=== PATIENT | male | born 1950 | race Caucasian/White ===

== ENCOUNTER → 2017-11-30 07:13 | Outpatient (CLI) | payer MEDICARE, OTHER, SELFPAY ==
[2017-11-30 08:43] LABS: Add Manual Diff / Slide Review NO; Basophils Percent Auto 0.6 % (0-2); Hematocrit 40.9 % (41-53); Hemoglobin 14.7 g/dL (13.5-17.5); Lymphocytes Percent Auto 34.8 % (25-40); Mean Corpuscular HGB Conc 35.9 % (30-36); Mean Corpuscular Hemoglobin 31.9 PG (26-34); Mean Corpuscular Volume 88.8 fL (80-100); Monocytes Percent Auto 7.6 % (3-14); Neutrophils Absolute Auto 3500 /uL (3000-5900); Platelet Count 172 X10^3/uL (150-400); Red Blood Cell Count 4.61 X10^6/uL (4.5-5.9); Red Cell Distribution Width 14.5 % (11.6-14.8); White Blood Cell Count 6.6 X10^3/uL (4.5-11.0)
[2017-11-30 08:45] LABS: Prothrombin Time 10.7 SECONDS (10.1-12.7)
[2017-11-30 08:52] LABS: Alanine Aminotransferase 25 IU/L (21-72); Albumin 4.1 g/dL (3.5-5.0); Albumin Globulin Ratio 1.2 (1.0-2.8); Alkaline Phosphatase 67 U/L (38-126); Aspartate Aminotransferase 34 IU/L (17-59); Bilirubin Total 1.1 mg/dL (0.2-1.3); Bilirubin Unconjugated 0.7 mg/dL (0.0-1.1); Blood Urea Nitrogen 18 mg/dL (9-20); Calcium 9.8 mg/dL (8.4-10.2); Carbon Dioxide 22 mmol/L (22-32); Chloride 107 mmol/L (98-107); Estimated Glomerular Filt Rate > 60.0 mL/min (>60); Globulin 3.3 g/dL (1.7-4.1); Glucose 165 mg/dL (80-110); HEMOLYSIS 46 (0-50); Magnesium 1.5 mg/dL (1.6-2.3); Phosphorous 3.2 mg/dL (2.3-3.7); Potassium 4.6 mmol/L (3.4-5.1); Sodium 140 mmol/L (137-145); Total Protein 7.4 g/dL (6.3-8.2)
[2017-11-30 13:36] LABS: Gamma Glutamyl Transpeptidase 34 U/L (15-73)
[2017-12-02 17:40] LABS: Tacrolimus 3.8 mcg/L (5.0-20.0)
== END ==
PROVIDERS: PCP Family Medicine; Visit Provider Internal Medicine Gastroenterology
DX: Z94.4 Liver transplant status (principal); Z48.298 Encounter for aftercare following other organ transplant; Z79.899 Other long term (current) drug therapy
CPT/HCPCS: 36415; 80048; 80076; 80197; 82977; 83735; 84100; 85025; 85610

== ENCOUNTER → 2018-06-16 07:32 | Outpatient (CLI) | payer MEDICARE, OTHER, SELFPAY ==
[2018-06-16 08:45] LABS: Add Manual Diff / Slide Review NO; Basophils Absolute Auto 100 /uL (0-100); Eosinophils Absolute Auto 300 /uL (0-450); Eosinophils Percent Auto 5.5 % (2-4); Hematocrit 40.2 % (41-53); Hemoglobin 14.2 g/dL (13.5-17.5); Lymphocytes Absolute Auto 2200 /uL (1100-4500); Lymphocytes Percent Auto 37.4 % (25-40); Mean Corpuscular HGB Conc 35.4 % (30-36); Mean Corpuscular Hemoglobin 31.7 PG (26-34); Mean Corpuscular Volume 89.5 fL (80-100); Monocytes Absolute Auto 400 /uL (0-900); Neutrophils Absolute Auto 2900 /uL (1500-7000); Neutrophils Percent Auto 49.1 % (50-75); Platelet Count 160 X10^3/uL (150-400); Red Cell Distribution Width 14.9 % (11.6-14.8)
[2018-06-16 08:54] LABS: INR 1.1 (0.9-1.3)
[2018-06-16 09:07] LABS: Alanine Aminotransferase 26 IU/L (21-72); Albumin 3.9 g/dL (3.5-5.0); Albumin Globulin Ratio 1.1 (1.0-2.8); Alkaline Phosphatase 59 U/L (38-126); Aspartate Aminotransferase 26 IU/L (17-59); BUN Creatinine Ratio 17.3 (6-22); Bilirubin Total 0.8 mg/dL (0.2-1.3); Bilirubin Unconjugated 0.6 mg/dL (0.0-1.1); Blood Urea Nitrogen 19 mg/dL (9-20); Calcium 10.1 mg/dL (8.4-10.2); Carbon Dioxide 24 mmol/L (22-32); Chloride 105 mmol/L (98-107); Estimated Glomerular Filt Rate > 60.0 mL/min (>60); Gamma Glutamyl Transpeptidase 28 U/L (15-73); Globulin 3.4 g/dL (1.7-4.1); Glucose 173 mg/dL (80-110); HEMOLYSIS < 15 (0-50); Magnesium 1.3 mg/dL (1.6-2.3); Phosphorous 3.2 mg/dL (2.3-3.7); Potassium 4.4 mmol/L (3.4-5.1); Sodium 140 mmol/L (137-145); Total Protein 7.3 g/dL (6.3-8.2)
[2018-06-19 09:04] LABS: Tacrolimus 4.2 mcg/L (5.0-20.0)
== END ==
PROVIDERS: PCP Family Medicine; Visit Provider Internal Medicine Gastroenterology
DX: Z94.4 Liver transplant status (principal); Z48.298 Encounter for aftercare following other organ transplant; Z79.899 Other long term (current) drug therapy
CPT/HCPCS: 36415; 80048; 80076; 80197; 82977; 83735; 84100; 85025; 85610

== ENCOUNTER → 2018-09-02 07:56 | Outpatient (CLI) | payer MEDICARE, OTHER, SELFPAY ==
[2018-09-02 08:54] LABS: Add Manual Diff / Slide Review NO; Basophils Absolute Auto 0 /uL (0-100); Basophils Percent Auto 0.7 % (0-2); Eosinophils Absolute Auto 200 /uL (0-450); Eosinophils Percent Auto 3.7 % (2-4); Hematocrit 40.9 % (41-53); Hemoglobin 14.5 g/dL (13.5-17.5); Lymphocytes Absolute Auto 2400 /uL (1100-4500); Lymphocytes Percent Auto 39.5 % (25-40); Mean Corpuscular HGB Conc 35.5 % (30-36); Mean Corpuscular Hemoglobin 31.1 PG (26-34); Mean Corpuscular Volume 87.6 fL (80-100); Monocytes Absolute Auto 500 /uL (0-900); Monocytes Percent Auto 7.5 % (3-14); Neutrophils Absolute Auto 3000 /uL (1500-7000); Neutrophils Percent Auto 48.6 % (50-75); Platelet Count 144 X10^3/uL (150-400); Red Blood Cell Count 4.67 X10^6/uL (4.5-5.9); Red Cell Distribution Width 14.4 % (11.6-14.8); White Blood Cell Count 6.1 X10^3/uL (4.5-11.0)
[2018-09-02 09:13] LABS: INR 1.1 (0.9-1.3); Prothrombin Time 12.3 SECONDS (10.1-12.7)
[2018-09-02 09:18] LABS: Alanine Aminotransferase 19 IU/L (21-72); Albumin 3.9 g/dL (3.5-5.0); Albumin Globulin Ratio 1.2 (1.0-2.8); Alkaline Phosphatase 55 U/L (38-126); Aspartate Aminotransferase 20 IU/L (17-59); Bilirubin Total 1.4 mg/dL (0.2-1.3); Bilirubin Unconjugated 1.1 mg/dL (0.0-1.1); Blood Urea Nitrogen 22 mg/dL (9-20); Calcium 9.7 mg/dL (8.4-10.2); Carbon Dioxide 24 mmol/L (22-32); Chloride 106 mmol/L (98-107); Estimated Glomerular Filt Rate > 60.0 mL/min (>60); Gamma Glutamyl Transpeptidase 26 U/L (15-73); Globulin 3.2 g/dL (1.7-4.1); Glucose 215 mg/dL (80-110); HEMOLYSIS < 15 (0-50); Magnesium 1.3 mg/dL (1.6-2.3); Phosphorous 2.8 mg/dL (2.3-3.7); Potassium 4.4 mmol/L (3.4-5.1); Sodium 138 mmol/L (137-145); Total Protein 7.1 g/dL (6.3-8.2)
[2018-09-05 06:44] LABS: Tacrolimus 5.3 mcg/L (5.0-20.0)
== END ==
PROVIDERS: Family Provider Internal Medicine Gastroenterology; PCP Family Medicine; Visit Provider Internal Medicine Gastroenterology
DX: Z94.4 Liver transplant status (principal); Z79.899 Other long term (current) drug therapy; Z48.298 Encounter for aftercare following other organ transplant; R10.9 Unspecified abdominal pain
CPT/HCPCS: 36415; 80048; 80076; 80197; 82977; 83735; 84100; 85025; 85610

== ENCOUNTER → 2018-09-11 10:20 | Outpatient (CLI) | payer MEDICARE, OTHER, SELFPAY ==
--- NOTE | 2018-09-11 | DI.CT.S_ITS ---
PROCEDURE: CT CHEST ABD PEL W CON INDICATIONS: DYSPHAGIA/LEFT UPPER QUADRANT PAIN/LIVER TRANSPLAN TECHNIQUE: After the administration of oral and intravenous contrast, 5 mm thick sections acquired from the lung apices to the symphysis. 5 mm coronal and sagittal reformats were performed, with additional 7 mm coronal MIP reformats through the lungs. For radiation dose reduction, the following was used: automated exposure control, adjustment of mA and/or kV according to patient size. COMPARISON: [facility], CT, PE STUDY (CTA CHEST), 06/25/2017, 14:43. FINDINGS: Image quality: Excellent. CHEST: Lungs and pleura: No acute airspace opacities. No pleural effusions or pneumothorax. Central and peripheral airways appear patent and normal in caliber. Mediastinum: Heart size is normal. No pericardial effusion. No mediastinal or hilar adenopathy by size criteria. Thoracic aorta and central pulmonary arteries are normal in size. Esophagus is normal in caliber. No hiatal hernia. Chest wall: No axillary or supraclavicular adenopathy by size criteria. Thyroid gland appears normal where well seen. ABDOMEN: Solid organs: Liver is again seen to be cirrhotic in its appearance, with mild nodular margination previously documented by chest CT scan in 06/25/17 in this patient with reported prior liver transplant. Splenomegaly is again noted, 15.4 cm craniocaudad length, virtually equivalent to the prior enlargement noted. Gallbladder is not seen. Biliary system is non dilated. Pancreas enhances normally, but note is made of a cyst at the anterior border of the splenic tail, measuring up to 1.8 x 2.1 cm with a small posterior punctate calcification at its border. No adjacent amara pancreatic inflammation is seen. Spleen is normal in size and enhancement. No adrenal nodules. Kidneys demonstrate normal size and enhancement, without hydronephrosis. Peritoneum and bowel: Bowel loops demonstrate normal wall thickness and caliber. No free fluid or air. Nodes and vessels: No retroperitoneal or mesenteric adenopathy by size criteria. Aorta and inferior vena cava are normal in size. Extensive varicosities are noted within the abdomen, best seen to the left of midline and tracking cephalad from the abdomen/pelvis junction into the gastrohepatic ligament and perisplenic hilar region, with what appears to be varices tracking cephalad along the esophagus into the posterior mediastinum. Note is made at the insertion of the inferior mesenteric vein into the undersurface of the splenic vein there is a lower density in coming venous flow and what appears to be laminar flow of this relatively unopacified blood tracks leftward towards the splenic hilum as a band of lower density content within the splenic vein (indicating reversed flow). Miscellaneous: No ventral hernias. PELVIS: Genitourinary: Bladder wall thickness is normal. Miscellaneous: No inguinal hernias or adenopathy. A normal appendix is seen extending from the cecal region cephalad and posteriorly. Bones: No suspicious bony lesions. No vertebral body compression fractures. IMPRESSION: 1. Report of prior hepatic transplant with expected postsurgical changes. Hepatic cirrhosis is present. There is evidence of significant portal hypertension as indicated by extensive varicosities involving the abdomen best seen to the left of midline and extending cephalad in the paraesophageal area. Reverse flow of blood within the splenic vein appears present. 2. An ovoid water density cystic structure is seen at the anterior border of the splenic tail, measuring up to 1.8 x 2.1 cm, with a small punctate calcification at its posterior border. 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 Therefore it is recommended that this patient received a targeted single organ ultrasound to determine whether that structure can be accurately detected and measured by ultrasound and therefore followed over time for interval enlargement. Ultrasound assessment in 6 and 12 months is recommended at this time, and followup thereafter likely will be necessary. 3. A source of unexplained abdominal pain is not found. Specifically no underlying definite infection or neoplasm is seen. Dictated by: Og Bang M.D. on 09/11/2018 at 12:15 Approved by: Og Bang M.D. on 09/11/2018 at 12:34
== END ==
PROVIDERS: Family Provider Internal Medicine Gastroenterology; PCP Family Medicine; Visit Provider Internal Medicine Gastroenterology
DX: R13.10 Dysphagia, unspecified (principal); R10.12 Left upper quadrant pain; R16.1 Splenomegaly, not elsewhere classified; K74.60 Unspecified cirrhosis of liver; K86.2 Cyst of pancreas; K76.6 Portal hypertension; Z94.4 Liver transplant status
CPT/HCPCS: 71260; 74177; Q9967

== ENCOUNTER → 2019-01-10 08:09 | Outpatient (CLI) | payer MEDICARE, OTHER, SELFPAY ==
[2019-01-10 08:43] LABS: Add Manual Diff / Slide Review NO; Basophils Absolute Auto 0 /uL (0-100); Basophils Percent Auto 0.8 % (0-2); Eosinophils Absolute Auto 200 /uL (0-450); Eosinophils Percent Auto 3.7 % (2-4); Hematocrit 42.3 % (41-53); Hemoglobin 15.1 g/dL (13.5-17.5); Lymphocytes Absolute Auto 2300 /uL (1100-4500); Lymphocytes Percent Auto 41.4 % (25-40); Mean Corpuscular HGB Conc 35.7 % (30-36); Mean Corpuscular Hemoglobin 31.7 PG (26-34); Mean Corpuscular Volume 88.8 fL (80-100); Monocytes Absolute Auto 300 /uL (0-900); Monocytes Percent Auto 6.1 % (3-14); Neutrophils Absolute Auto 2600 /uL (1500-7000); Platelet Count 149 X10^3/uL (150-400); Red Blood Cell Count 4.76 X10^6/uL (4.5-5.9); Red Cell Distribution Width 14.6 % (11.6-14.8); White Blood Cell Count 5.5 X10^3/uL (4.5-11.0)
== END ==
PROVIDERS: PCP Family Medicine; Visit Provider Internal Medicine Gastroenterology
DX: R10.9 Unspecified abdominal pain (principal)
CPT/HCPCS: 36415; 85025

== ENCOUNTER 2020-07-03 13:44 | Emergency (ER) | payer MEDICARE, OTHER, SELFPAY ==
[2020-07-03] VITALS (13 sets, daily range): BP systolic 126–145; BP diastolic 66–91; PULSE 78–82; RESP 2–24; TEMP 37.1; O2SAT 95–98; BMI 31.3
--- NOTE | 2020-07-03 14:00 | DI.RAD.S_ITS ---
PROCEDURE: XR ACUTE ABDOMEN SERIES INDICATIONS: severe, Abdominal pain TECHNIQUE: One view chest and two views of the abdomen were acquired. COMPARISON: None. FINDINGS: Surgical changes and devices: None. Chest: Lungs are mildly abnormal with a mild interstitial prominence of uncertain etiology and chronicity. This has a patchy distribution that could conceivably represent mild atypical/viral pneumonia.. Heart size is normal. No pleural effusions. No pneumoperitoneum. Abdomen: Bowel gas pattern is normal. No suspicious calcifications. Visualized solid organ contours appear normal. Bones: No suspicious bony lesions. IMPRESSION: No sign of intestinal obstruction or perforation across the abdomen and pelvis. At the lung bases there is a mild patchy alveolar infiltration pattern that could conceivably represent evidence of a early manifestation of viral/atypical pneumonia. Please correlate clinically. Dictated by: Og Bang M.D. on 07/03/2020 at 14:40 Approved by: Og Bang M.D. on 07/03/2020 at 14:41
--- NOTE | 2020-07-03 14:49 | ED.ABDPAIN ---
HPI - Abdominal Pain General Chief Complaint: Abdominal Pain Stated Complaint: APPENDIX IS LEAKING OR BROKEN Time Seen by Provider: 07/03/20 13:48 Source: patient Mode of arrival: Ambulatory Limitations: no limitations History of Present Illness HPI narrative: 70-year-old male nonsmoker without significant medical history presents with a chief complaint of a few weeks of gradually worsening right lower quadrant. He states the pain is constant and gradually worsening. He states the pain is worse with motion and improves with rest. He denies any dysuria, frequency or urgency. He does admit to some decreased bowel movements perhaps constipation. He has had no fever or chills. He denies any chest pain, shortness of breath or cough. MD complaint: abdominal pain Onset (ago): week(s) Pain Consistency: constant Location: RLQ Severity: moderate Quality: cramping and aching Radiation: none Relieving factors: rest Exacerbating factors: movement Associated symptoms: denies other symptoms Related Data Previous Rx's Medication Instructions Recorded levofloxacin [Levaquin] 750 mg PO QDAY #5 tab 06/25/17 acetaminophen-codeine 1 tab PO Q4-6H PRN #20 tab 07/03/20 levofloxacin 500 mg PO DAILY 7 Days tab 07/03/20 Allergies Allergy/AdvReac Type Severity Reaction Status Date / Time hydrocodone [HYDROCODONE] Allergy Severe SEVERE Verified 07/03/20 14:53 ITCHING tetracycline [TETRACYCLINE] Allergy Unknown Verified 07/03/20 14:53 bee venom protein (honey bee) Allergy Verified 07/03/20 14:53 oxycodone [OXYCODONE] AdvReac Severe SEVERE Verified 07/03/20 14:53 ITCHING Review of Systems Constitutional Constitutional: Denies chills, Denies fatigue, Denies fever(s), Denies frequent falls, Denies lethargy and Denies weakness Eyes Eyes: Denies change in vision, Denies eye discharge, Denies irritation and Denies loss of vision ENT Ears, Nose, Mouth, and Throat: Denies change in voice, Denies dizziness, Denies neck pain, Denies sore throat and Denies throat swelling Cardiovascular Cardiovascular: Denies chest pain, Denies irregular heart rhythm, Denies lightheadedness, Denies palpitations, Denies dyspnea, Denies dyspnea on exertion and Denies orthopnea Respiratory Respiratory: Denies cough, Denies dyspnea, Denies dyspnea on exertion and Denies wheezing Gastrointestinal Gastrointestinal: Reports abdominal pain, Denies change in bowel habits, Denies diarrhea, Denies nausea and Denies vomiting Musculoskeletal Musculoskeletal: Denies neck pain and Denies numbness Integumentary/Breasts Skin/Breast: Denies pruritus, Denies erythema, Denies rash and Denies wounds Neurologic Neurologic: Denies behavioral changes, Denies confusion, Denies dizziness, Denies frequent falls, Denies loss of vision, Denies numbness and Denies weakness Psychiatric Psychiatric: Denies anxiety, Denies behavioral changes, Denies confusion, Denies depression, Denies homicidal ideation and Denies suicidal ideation Endocrine Endocrine: Denies fatigue, Denies flushing and Denies palpitations Hematologic/Lymphatic Hematologic/Lymphatic: Denies easy bruising Allergic/Immunologic Allergic/Immunologic: Denies urticaria, Denies throat swelling and Denies wheezing Patient History Social History Smoking Status: Never smoker Smoking Status: Never smoker Substance Use Type: does not use Exam Narrative Exam Narrative: GENERAL: [70] year old patient appears stated age. Well-nourished, well-developed patient, in mild distress. Obviously uncomfortable, rubbing his right lower abdomen HEAD: Atraumatic. Normocephalic. EYES: Pupils equal round and reactive. Extraocular motions intact. No scleral icterus. No injection or drainage. ENT: Nose without bleeding, purulent drainage. Throat without erythema, tonsillar hypertrophy or exudate. Airway patent. NECK: Trachea midline. Non tender CARDIOVASCULAR: Regular rate and rhythm without murmurs, gallops, or rubs. RESPIRATORY: Clear to auscultation. Breath sounds equal bilaterally. No wheezes, rales, or rhonchi. GASTROINTESTINAL: Abdomen soft, tender right lower quadrant, nondistended. : Examined with patient standing, mild tenderness to R testicle, no swelling, discoloration. Much more pain with palpation in R inguinal region. No redness, warmth induration. No palpable hernia. EXTREMITIES: No edema or joint tenderness. BACK: Nontender without deformity or crepitance. No flank tenderness. NEURO: AOx3. SKIN: No rash or erythema of visible areas Initial Vital Signs Initial Vital Signs: Vital Signs Temperature 98.7 F 07/03/20 13:55 Pulse Rate 82 07/03/20 13:55 Respiratory Rate 18 07/03/20 13:55 Blood Pressure 140/88 07/03/20 13:55 Pulse Oximetry 97 07/03/20 13:55 Course Orders Ordered: Discontinued Medications Sodium Chloride (Normal Saline 0.9%) 1,000 mls @ 125 mls/hr IV CONT SAV Last Infusion: 07/03/20 18:54 Dose: 0 mls/hr Documented by: Admin: 07/03/20 15:14 Dose: 125 mls/hr Documented by: CARLOS Ondansetron HCl (Ondansetron 4 Mg/2 Ml Inj) 4 mg IV Q4HR PRN PRN Reason: Nausea And Vomiting Vital Signs Vital signs: Vital Signs - 8 hr 07/03/20 13:55 07/03/20 14:47 07/03/20 14:48 Temperature 98.7 F Pulse Rate 82 79 79 Respiratory Rate 18 20 14 Blood Pressure 140/88 132/83 Pulse Oximetry 97 97 97 07/03/20 15:00 07/03/20 15:30 07/03/20 15:51 Temperature Pulse Rate 78 79 80 Respiratory Rate 15 18 12 Blood Pressure 135/77 135/81 134/80 Pulse Oximetry 95 95 98 07/03/20 16:00 07/03/20 16:30 Temperature Pulse Rate 79 80 Respiratory Rate 2 L 17 Blood Pressure 142/86 H 127/82 Pulse Oximetry 97 97 MDM - Abdominal Pain Lab Data Result diagrams: 07/03/20 14:42 07/03/20 14:42 Labs: Lab Results 07/03/20 07/03/20 07/03/20 Range/Units 14:42 14:42 14:42 WBC 7.9 (4.5-11.0) X10^3/uL RBC 4.05 L (4.5-5.9) X10^6/uL Hgb 12.0 L (13.5-17.5) g/dL Hct 35.5 L (41-53) % MCV 87.7 (80-100) fL MCH 29.5 (26-34) PG MCHC 33.7 (30-36) % RDW 13.9 (11.6-14.8) % Plt Count 307 (150-400) X10^3/uL Neut % (Auto) 53.5 (50-75) % Lymph % (Auto) 33.1 (25-40) % [place] % (Auto) 9.3 (3-14) % Eos % (Auto) 3.0 (2-4) % Baso % (Auto) 1.1 (0-2) % Neut # (Auto) 4200 (9201-0121) /uL Lymph # (Auto) 2600 (4297-0096) /uL [place] # (Auto) 700 (0-900) /uL Eos # (Auto) 200 (0-450) /uL Baso # (Auto) 100 (0-100) /uL Sodium 136 L (137-145) mmol/L Potassium 4.2 (3.4-5.1) mmol/L Chloride 101 (98-107) mmol/L Carbon Dioxide 24 (22-32) mmol/L BUN 20 (9-20) mg/dL Creatinine 1.07 (0.66-1.25) mg/dL Estimated GFR > 60.0 (>60) mL/min BUN/Creatinine Ratio 18.7 (6-22) Glucose 228 H (80-110) mg/dL Lactate 1.8 (0.7-2.1) mmol/L Calcium 11.3 H (8.4-10.2) mg/dL Total Bilirubin 0.6 (0.2-1.3) mg/dL AST 30 (17-59) IU/L ALT 21 (<50) IU/L Alkaline Phosphatase 95 (38-126) U/L Total Protein 7.8 (6.3-8.2) g/dL Albumin 4.1 (3.5-5.0) g/dL Globulin 3.7 (1.7-4.1) g/dL Albumin/Globulin Ratio 1.1 (1.0-2.8) Point of care testing: Urine Dip Bedside Urine Glucose Negative Bedside Urine Bilirubin - Negative Bedside Urine Ketone - Negative Urine Specific [place] 1.010 Bedside Urine Occult Blood - Negative Bedside Urine pH 6.0 Bedside Urine Protein - Negative Bedside Urine Urobilinogen - Negative Bedside Urine Nitrite - Negative Bedside Urine Leukocytes - Negative Esterase Imaging Data CT scan - abdomen/pelvis: Radiologist's Impression: [address] [id number] Scan ReportSigned Patient: Gage Wyatt [facility]#: [id number]: 2Acct:[id number]/Sex: 70 / MDate of Service: 07/03/20Loc: EDAccession Number: [id number] Procedure: CT abdomen pelvis w con Ordering Provider: Mason Lawton D.O. PROCEDURE: CT ABDOMEN PELVIS W CON INDICATIONS: severe RLQ pain, worsening TECHNIQUE: After the administration of intravenous contrast, 5 mm thick sections acquired from the diaphragm to the symphysis. 5 mm coronal and sagittal reformats were acquired. For radiation dose reduction, the following was used: automated exposure control, adjustment of mA and/or kV according to patient size. COMPARISON: [facility], CT, CT CHEST ABD PEL W CON, 09/11/2018, 11:22. FINDINGS: Image quality: Excellent. ABDOMEN: Lung bases: Lung bases are clear. Heart size is normal. Solid organs: Liver is normal in size and yet abnormal in presence of mural nodularity along the capsular border and also there has been interval development of scattered low-density presume solid masses, by appearance, measuring up to 1.8 cm in maximal dimension. These are present in areas previously normal on earlier CT scanning from 09/11/18. Gallbladder is not seen and presumably is surgically absent.. Biliary system is non dilated. Pancreas enhances normally. Spleen is enlarged in size at 14.9 cm craniocaudad, and normal in enhancement. Extensive varices are present at the left upper quadrant near the splenic hilum. No adrenal nodules. Kidneys demonstrate normal size and enhancement, without hydronephrosis. Peritoneum and bowel: Bowel loops demonstrate normal wall thickness and caliber. No free fluid or air. Nodes and vessels: No retroperitoneal or mesenteric adenopathy by size criteria. Aorta and inferior vena cava are normal in size. Miscellaneous: No ventral hernias. PELVIS: Genitourinary: Bladder wall thickness is normal. Miscellaneous: No inguinal hernias or adenopathy. Bones: No suspicious bony lesions. No vertebral body compression fractures. IMPRESSION: The hepatic capsular margin is nodular consistent with cirrhosis and there is evidence of portal hypertension given a large cluster of enlarged varices at the left upper quadrant near the splenic hilum. There is an unexpected finding of multiple small solid-appearing nodules within the liver parenchyma, in a pattern suggestive of hepatic metastatic disease. Elective follow-up by multi phase hepatic MR scanning is recommended, and also assessment by elective follow-up gallbladder ultrasound should be obtained for further characterization. Within the abdomen and pelvis no discrete focus of primary neoplasm as source of new hypodense nodules within the liver parenchyma is found. Dictated by: Og Bang M.D. on 07/03/2020 at 15:57 Approved by: Og Bang M.D. on 07/03/2020 at 16:04 [facility] Narrative Medical decision making narrative: Multiple etiologies for patient's symptoms considered including: [Appendicitis versus bowel obstruction versus kidney stone versus constipation versus epidydmitis vs. hernia vs. other] Patient's symptoms improved over duration of stay with above-stated therapies. He has trouble with hydrocodone/oxycodone and has done well with morphine patches years ago, but very much does not want something as strong as morphine. He requests codeine, which seems reasonable given this history. Findings and discharge diagnosis discussed with patient/family followed by verbalization of understanding Return precautions discussed with patient/family whom verbalize understanding. Discharge Plan Departure Patient Disposition: Home Clinical Impression: Acute epididymitis Instructions: DI for Epididymitis Activity Restrictions/Additional Instructions: *You have been diagnosed with [abdominal pain and testicle pain. CT shows no bowel obstruction or appendicitis. Ultrasound shows epididymitis. *Take medications as directed. *Follow up with your primary care provider in 2-3 days, call for an appointment. Let them know you were seen in the Emergency Department and that we ask that you be seen in follow up. The CT did show some concerning elements to the structure of your liver and radiology recommends further evaluation as an outpatient, your primary care provider can help get you set up for the MRI that is recommended. There is question of possible early hernia based on ultrasound. There is no evidence that it is incarcerated or stuck, but please be sure to not strain, or lift heavy objects. *Return to ER if you should have any new, worsening or concerning symptoms, such as [worsening pain, persistent vomiting, fever greater than 101 F or other concerning symptoms] Prescriptions: New acetaminophen-codeine 300-30 mg tablet 1 tab PO Q4-6H PRN (Reason: pain) Qty: 20 RF: 0 levofloxacin 500 mg tablet 500 mg PO DAILY 7 Days RF: 0 No Action levofloxacin [Levaquin] 750 MG tablet 750 mg PO QDAY Qty: 5 RF: 0 Referrals: Vishal Fields MD [Primary Care Provider] -
[2020-07-03 14:54] LABS: Add Manual Diff / Slide Review NO; Basophils Absolute Auto 100 /uL (0-100); Basophils Percent Auto 1.1 % (0-2); Eosinophils Absolute Auto 200 /uL (0-450); Hematocrit 35.5 % (41-53); Lymphocytes Absolute Auto 2600 /uL (1100-4500); Lymphocytes Percent Auto 33.1 % (25-40); Mean Corpuscular HGB Conc 33.7 % (30-36); Mean Corpuscular Hemoglobin 29.5 PG (26-34); Mean Corpuscular Volume 87.7 fL (80-100); Monocytes Absolute Auto 700 /uL (0-900); Monocytes Percent Auto 9.3 % (3-14); Neutrophils Absolute Auto 4200 /uL (1500-7000); Neutrophils Percent Auto 53.5 % (50-75); Platelet Count 307 X10^3/uL (150-400); Red Blood Cell Count 4.05 X10^6/uL (4.5-5.9); Red Cell Distribution Width 13.9 % (11.6-14.8); White Blood Cell Count 7.9 X10^3/uL (4.5-11.0)
--- NOTE | 2020-07-03 14:55 | DI.CT.S_ITS ---
PROCEDURE: CT ABDOMEN PELVIS W CON INDICATIONS: severe RLQ pain, worsening TECHNIQUE: After the administration of intravenous contrast, 5 mm thick sections acquired from the diaphragm to the symphysis. 5 mm coronal and sagittal reformats were acquired. For radiation dose reduction, the following was used: automated exposure control, adjustment of mA and/or kV according to patient size. COMPARISON: [facility], CT, CT CHEST ABD PEL W CON, 09/11/2018, 11:22. FINDINGS: Image quality: Excellent. ABDOMEN: Lung bases: Lung bases are clear. Heart size is normal. Solid organs: Liver is normal in size and yet abnormal in presence of mural nodularity along the capsular border and also there has been interval development of scattered low-density presume solid masses, by appearance, measuring up to 1.8 cm in maximal dimension. These are present in areas previously normal on earlier CT scanning from 09/11/18. Gallbladder is not seen and presumably is surgically absent.. Biliary system is non dilated. Pancreas enhances normally. Spleen is enlarged in size at 14.9 cm craniocaudad, and normal in enhancement. Extensive varices are present at the left upper quadrant near the splenic hilum. No adrenal nodules. Kidneys demonstrate normal size and enhancement, without hydronephrosis. Peritoneum and bowel: Bowel loops demonstrate normal wall thickness and caliber. No free fluid or air. Nodes and vessels: No retroperitoneal or mesenteric adenopathy by size criteria. Aorta and inferior vena cava are normal in size. Miscellaneous: No ventral hernias. PELVIS: Genitourinary: Bladder wall thickness is normal. Miscellaneous: No inguinal hernias or adenopathy. Bones: No suspicious bony lesions. No vertebral body compression fractures. IMPRESSION: The hepatic capsular margin is nodular consistent with cirrhosis and there is evidence of portal hypertension given a large cluster of enlarged varices at the left upper quadrant near the splenic hilum. There is an unexpected finding of multiple small solid-appearing nodules within the liver parenchyma, in a pattern suggestive of hepatic metastatic disease. Elective follow-up by multi phase hepatic MR scanning is recommended, and also assessment by elective follow-up gallbladder ultrasound should be obtained for further characterization. Within the abdomen and pelvis no discrete focus of primary neoplasm as source of new hypodense nodules within the liver parenchyma is found. Dictated by: Og Bang M.D. on 07/03/2020 at 15:57 Approved by: Og Bang M.D. on 07/03/2020 at 16:04
[2020-07-03] MEDS: SODIUM CHLORIDE 0.9% 1,000 ML 125 ML IV (15:14)
[2020-07-03 15:16] LABS: Lactate (Lactic Acid) 1.8 mmol/L (0.7-2.1)
[2020-07-03 15:17] LABS: Alanine Aminotransferase 21 IU/L (<50); Albumin 4.1 g/dL (3.5-5.0); Albumin Globulin Ratio 1.1 (1.0-2.8); Alkaline Phosphatase 95 U/L (38-126); Aspartate Aminotransferase 30 IU/L (17-59); BUN Creatinine Ratio 18.7 (6-22); Bilirubin Total 0.6 mg/dL (0.2-1.3); Blood Urea Nitrogen 20 mg/dL (9-20); Calcium 11.3 mg/dL (8.4-10.2); Carbon Dioxide 24 mmol/L (22-32); Chloride 101 mmol/L (98-107); Estimated Glomerular Filt Rate > 60.0 mL/min (>60); Globulin 3.7 g/dL (1.7-4.1); Glucose 228 mg/dL (80-110); HEMOLYSIS < 15 (0-50); Potassium 4.2 mmol/L (3.4-5.1); Sodium 136 mmol/L (137-145); Total Protein 7.8 g/dL (6.3-8.2)
--- NOTE | 2020-07-03 16:48 | DI.US.S_ITS ---
PROCEDURE: US SCROTUM INDICATIONS: RLQ and R testicle pain TECHNIQUE: Real-time scanning was performed of the scrotum and testicles, with image documentation. Color and pulse Doppler interrogation was performed of both testicles. COMPARISON: None. FINDINGS: Right: Testicle is normal in size at 3.5 x 2.0 x 2.5 cm, and homogenous in echotexture. Epididymis is normal in overall size and morphology. A small hydrocele is present. Small varicocele. Increased vascularity to the right epididymis. Overlying scrotal skin is normal in thickness. Multiple tiny epididymal cysts. Left: Testicle is normal in size at 3.2 x 1.8 x 2.8 cm, and homogeneous in echotexture. Epididymis is normal in overall size and morphology. A varicocele is present. No hydrocele. Overlying scrotal skin is normal in thickness. Doppler: Color and pulse Doppler demonstrate normal and symmetric arterial flow in both testicles. IMPRESSION: 1. Normal appearing testicles with no evidence of testicular torsion or mass. 2. Bilateral varicoceles. 3. Changes suggesting right epididymitis. Dictated by: Mitch Kramer M.D. on 07/03/2020 at 18:25 Approved by: Mitch Kramer M.D. on 07/03/2020 at 18:28
== END 2020-07-03 18:58 | disposition home or self-care (01) ==
PROVIDERS: Emergency Provider Emergency Medicine; PCP Family Medicine
DX: N45.1 Epididymitis (principal)
CPT/HCPCS: 36415; 74022; 74177; 76870; 80053; 81003; 83605; 85025; 87040; 96360; 96361; 99284; Q9967

== ENCOUNTER → 2020-08-28 10:13 | Outpatient (CLI) | payer MEDICARE, OTHER, SELFPAY ==
[2020-08-28 11:14] LABS: Add Manual Diff / Slide Review NO; Basophils Absolute Auto 100 /uL (0-100); Basophils Percent Auto 1.5 % (0-2); Eosinophils Absolute Auto 300 /uL (0-450); Eosinophils Percent Auto 6.3 % (2-4); Hematocrit 35.3 % (41-53); Hemoglobin 11.6 g/dL (13.5-17.5); Lymphocytes Absolute Auto 1800 /uL (1100-4500); Lymphocytes Percent Auto 33.3 % (25-40); Mean Corpuscular HGB Conc 32.8 % (30-36); Mean Corpuscular Hemoglobin 27.5 PG (26-34); Mean Corpuscular Volume 83.8 fL (80-100); Monocytes Absolute Auto 500 /uL (0-900); Monocytes Percent Auto 9.9 % (3-14); Neutrophils Absolute Auto 2700 /uL (1500-7000); Platelet Count 195 X10^3/uL (150-400); Red Blood Cell Count 4.21 X10^6/uL (4.5-5.9); Red Cell Distribution Width 20.2 % (11.6-14.8); White Blood Cell Count 5.4 X10^3/uL (4.5-11.0)
[2020-08-28 11:43] LABS: Alanine Aminotransferase 20 IU/L (<50); Albumin 3.5 g/dL (3.5-5.0); Alkaline Phosphatase 172 U/L (38-126); Aspartate Aminotransferase 41 IU/L (17-59); BUN Creatinine Ratio 16.7 (6-22); Bilirubin Total 0.9 mg/dL (0.2-1.3); Blood Urea Nitrogen 17 mg/dL (9-20); Calcium 11.7 mg/dL (8.4-10.2); Carbon Dioxide 25 mmol/L (22-32); Chloride 101 mmol/L (98-107); Estimated Glomerular Filt Rate > 60.0 mL/min (>60); Globulin 3.6 g/dL (1.7-4.1); Glucose 160 mg/dL (80-110); HEMOLYSIS < 15 (0-50); Lactate Dehydrogenase 514 U/L (313-618); Phosphorous 3.4 mg/dL (2.3-3.7); Potassium 4.8 mmol/L (3.4-5.1); Sodium 134 mmol/L (137-145); Total Protein 7.1 g/dL (6.3-8.2); Uric Acid 6.3 mg/dL (3.5-8.5)
[2020-08-28 11:47] LABS: RBC Morphology Normal Morphology
[2020-08-28 23:59] LABS: HIV 1 & 2 Ab/Ag 4th Gen Combo NEGATIVE (NEGATIVE)
[2020-09-03 10:10] LABS: HCV AB >11.0 s/co ratio (0.0-0.9)
== END ==
PROVIDERS: PCP Family Medicine; Referring Provider Internal Medicine Hematology & Oncology; Visit Provider Internal Medicine Hematology & Oncology
DX: C83.38 Diffuse large B-cell lymphoma, lymph nodes of multiple sites (principal)
CPT/HCPCS: 36415; 80053; 83615; 84100; 84550; 85025; 86704; 86706; 86803; 87340; 87389

== ENCOUNTER → 2020-09-22 08:17 | Outpatient (CLI) | payer MEDICARE, OTHER, SELFPAY ==
[2020-09-22 09:28] LABS: Mean Corpuscular HGB Conc 33.3 % (30-36); Mean Corpuscular Hemoglobin 28.7 PG (26-34); Mean Corpuscular Volume 86.3 fL (80-100); Platelet Count 127 X10^3/uL (150-400); Red Blood Cell Count 4.52 X10^6/uL (4.5-5.9); White Blood Cell Count 9.2 X10^3/uL (4.5-11.0)
[2020-09-22 09:35] LABS: Add Manual Diff / Slide Review YES; Alanine Aminotransferase 12 IU/L (<50); Albumin 3.5 g/dL (3.5-5.0); Albumin Globulin Ratio 1.1 (1.0-2.8); Alkaline Phosphatase 91 U/L (38-126); Aspartate Aminotransferase 25 IU/L (17-59); BUN Creatinine Ratio 15.6 (6-22); Bilirubin Total 0.6 mg/dL (0.2-1.3); Bilirubin Unconjugated 0.4 mg/dL (0.0-1.1); Blood Urea Nitrogen 17 mg/dL (9-20); Calcium 9.8 mg/dL (8.4-10.2); Carbon Dioxide 23 mmol/L (22-32); Chloride 108 mmol/L (98-107); Estimated Glomerular Filt Rate > 60.0 mL/min (>60); Gamma Glutamyl Transpeptidase 43 U/L (15-73); Globulin 3.1 g/dL (1.7-4.1); Glucose 143 mg/dL (80-110); HEMOLYSIS < 15 (0-50); Magnesium 1.1 mg/dL (1.6-2.3); Phosphorous 3.2 mg/dL (2.3-3.7); Potassium 4.7 mmol/L (3.4-5.1); Sodium 140 mmol/L (137-145); Total Protein 6.6 g/dL (6.3-8.2)
[2020-09-22 10:07] LABS: Anisocytosis 2+; Hypochromasia 1+; Neutrophils Absolute Manual 5428 /uL (3000-5900); Polychromasia 2+; Total Cells Counted 100
[2020-09-23 06:07] LABS: Tacrolimus 4.4 ng/mL (2.0-20.0)
== END ==
PROVIDERS: PCP Family Medicine; Referring Provider Internal Medicine Gastroenterology; Visit Provider Internal Medicine Gastroenterology
DX: I10 Essential (primary) hypertension (principal); Z94.4 Liver transplant status; Z48.298 Encounter for aftercare following other organ transplant; Z79.899 Other long term (current) drug therapy
CPT/HCPCS: 36415; 80048; 80076; 80197; 82977; 83735; 84100; 85007; 85025

== ENCOUNTER 2020-10-04 14:27 | Inpatient (IN) | payer MEDICARE, OTHER, SELFPAY ==
[2020-10-04] VITALS (94 sets, daily range): BP systolic 81–128; BP diastolic 51–74; PULSE 81–145; RESP 7–26; TEMP 36.2–36.6; O2SAT 83–99; BMI 27.3; BMI 28.8
--- NOTE | 2020-10-04 16:04 | DI.RAD.S_ITS ---
PROCEDURE: XR CHEST 1V INDICATIONS: suspected sepsis TECHNIQUE: One view of the chest was acquired. COMPARISON: [facility], , CHEST 2 VIEW, 06/25/2017, 11:41. FINDINGS: Surgical changes and devices: Right-sided Port-A-Cath tip in the right atrium Lungs and pleura: Lungs are clear. No pleural effusions or pneumothorax. Low lung volumes accentuate pulmonary interstitium and heart size. Mediastinum: Mediastinal contours appear normal. Heart size is normal. Bones and chest wall: No suspicious bony lesions. Overlying soft tissues appear unremarkable. IMPRESSION: No acute cardiopulmonary findings Dictated by: Gary Hernandez M.D. on 10/04/2020 at 16:35 Approved by: Gary Hernandez M.D. on 10/04/2020 at 16:36
--- NOTE | 2020-10-04 16:20 | ED.BACK ---
HPI - Back Pain/Injury General Chief Complaint: Back Pain/Injury Stated Complaint: WHOLE BODY PAIN Time Seen by Provider: 10/04/20 15:46 Source: patient Mode of arrival: Ambulatory History of Present Illness HPI Narrative: Patient is a 70-year-old male. 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 Since that time he has subsequently developed lymphoma. Is being followed by the [facility]. Is currently undergoing chemotherapy. His last dose of chemotherapy was approximately 1 month ago. He is on prophylactic antibiotics for this. He has chronic back pain secondary to cancer. Has been taking his morphine at home however today he feels like that the morphine is not working for him and he has increasing pain all over his body. He did take an extra dose of the morphine without any improvement. No chest pain. No shortness of breath. Does have some lightheadedness. No fevers. Related Data Home Medications Medication Instructions Recorded Confirmed acyclovir 400 mg tablet 400 mg PO BID 10/04/20 10/04/20 baclofen 10 mg tablet 10 mg PO TID PRN 10/04/20 10/04/20 entecavir 0.5 mg tablet 0.5 mg PO DAILY 10/04/20 10/04/20 finasteride 5 mg tablet 5 mg PO DAILY 10/04/20 10/04/20 furosemide 20 mg tablet 40 mg PO QAM 10/04/20 10/04/20 metformin 500 mg tablet 1,000 mg PO BID 10/04/20 10/04/20 morphine 15 mg immediate release 15 mg PO Q6HR PRN 10/04/20 10/04/20 tablet nadolol 40 mg tablet 40 mg PO DAILY 10/04/20 10/04/20 prochlorperazine maleate 10 mg 10 mg PO Q6HR PRN 10/04/20 10/04/20 tablet sitagliptin 25 mg tablet (Januvia) 25 mg PO DAILY 10/04/20 10/04/20 tacrolimus 0.5 mg capsule, 0.5 mg PO BID 10/04/20 10/04/20 immediate-release tizanidine 2 mg capsule 2 mg PO TID PRN 10/04/20 10/04/20 Previous Rx's Medication Instructions Recorded levofloxacin 750 mg tablet 750 mg PO QDAY #5 tab 06/25/17 (Levaquin) acetaminophen 300 mg-codeine 30 mg 1 tab PO Q4-6H PRN #20 tab 07/03/20 tablet Allergies Allergy/AdvReac Type Severity Reaction Status Date / Time hydrocodone [HYDROCODONE] Allergy Severe SEVERE Verified 10/04/20 17:54 ITCHING tetracycline [TETRACYCLINE] Allergy Unknown Verified 10/04/20 17:54 bee venom protein (honey bee) Allergy Verified 10/04/20 17:54 oxycodone [OXYCODONE] AdvReac Severe SEVERE Verified 10/04/20 17:54 ITCHING Review of Systems Constitutional Constitutional: Denies fever(s) and Denies headache(s) Eyes Eyes: Denies change in vision ENT Ears, Nose, Mouth, and Throat: Denies headache(s) Cardiovascular Cardiovascular: Denies chest pain, Denies rapid heart rate and Reports dyspnea (This is not new) Respiratory Respiratory: Reports dyspnea (This is not new) Gastrointestinal Gastrointestinal: Reports abdominal pain, Denies change in bowel habits and Denies nausea Musculoskeletal Musculoskeletal: Reports back pain Integumentary/Breasts Skin/Breast: Reports system reviewed and no additional complaints, except as documented Neurologic Neurologic: Denies headache(s) Psychiatric Psychiatric: Reports system reviewed and no additional complaints, except as documented Hematologic/Lymphatic On Anticoagulants: No Allergic/Immunologic Allergic/Immunologic: Reports system reviewed and no additional complaints, except as documented Patient History Medical History Atrial fibrillation B-cell lymphoma Diabetes mellitus Surgical History Liver transplant recipient Social History Smoking Status: Former smoker Smoking Status: Former smoker Substance Use Type: does not use Exam Initial Vital Signs Initial Vital Signs: Vital Signs Temperature 97.9 F 10/04/20 14:46 Pulse Rate 123 H 10/04/20 14:46 Respiratory Rate 18 10/04/20 14:46 Blood Pressure 86/65 L 10/04/20 14:46 Pulse Oximetry 97 10/04/20 14:46 Const General: frail appearing HENMT Head: normal to inspection and normocephalic Eyes General: appearance normal, both eyes and all related structures Chest Chest: No tenderness Resp Auscultation: clear to auscultation bilaterally Cardio Rate: tachycardic Rhythm: abnormal rhythm GI Palpation: soft Other: Does have a large mass in his right upper quadrant consistent with his liver transplant Back/Spine/Pelvis Thoracic/Lumbar Spine: paraspinal tenderness, thoracic spinal tenderness and lumbar spinal tenderness Skin General: scars Neuro General: patient alert, patient awake, patient oriented x3 and moves all extremities Extrem General: capillary refill normal Psych Appearance: grossly normal Scores GCS Richie coma scale eye opening: Spontaneous Richie coma scale verbal response: Orientated Richie coma scale motor response: Obey commands [place] coma scale total score: 15 Course Orders Ordered: ED Orders 10/04/20 16:04 XR chest 1V Stat EKG-12 Lead Stat RT Consult Eval and Treat Now 10/04/20 16:45 BNP [NT-proBNP (BNP-Adult 18+)] Stat Complete Blood Count AUTO DIFF Stat Comprehensive Metabolic Panel Stat Lactate (Lactic Acid) Stat Lipase Stat Partial Thromboplastin Time Stat Procalcitonin Stat Prothrombin Time INR Stat Troponin & CK Cardiac Panel Stat 10/04/20 17:00 Blood Culture Stat 10/04/20 17:16 COVID19 - ADMIT (RUBBER TUBING BACKER swab/PCR) Stat Diltiazem HCl 125 mg/ Sodium (Chloride) 125 mls @ 5 mls/hr IV TITRATE SAV; Protocol Last Admin: 10/04/20 20:03 Dose: 5 mg/hr, 5 mls/hr Documented by: AZEEM Discontinued Medications Diltiazem HCl (Diltiazem 5 Mg/Ml Sdv) 10 mg IV NOW ONE Stop: 10/04/20 16:36 Last Admin: 10/04/20 17:04 Dose: 10 mg Documented by: SIMI Hydromorphone HCl (Hydromorphone 0.5 Mg Inj) 0.5 mg IV NOW ONE Stop: 10/04/20 19:07 Last Admin: 10/04/20 19:29 Dose: 0.5 mg Documented by: AZEEM Sodium Chloride (Normal Saline 0.9%) 1,000 mls @ 1,000 mls/hr IV BOLUS ONE Stop: 10/04/20 17:03 Last Infusion: 10/04/20 19:11 Dose: 0 mls/hr Documented by: Admin: 10/04/20 17:06 Dose: 1,000 mls/hr Documented by: SIMI Cefepime HCl 2 gm/ Sodium (Chloride) 100 mls @ 200 mls/hr IV NOW ONE Stop: 10/04/20 16:09 Last Infusion: 10/04/20 17:35 Dose: 0 mls/hr Documented by: Admin: 10/04/20 17:01 Dose: 200 mls/hr Documented by: SIMI Nadolol (Nadolol 40 Mg Tablet) 20 mg PO DAILY SAV Nadolol (Nadolol 40 Mg Tablet) 20 mg PO NOW ONE Stop: 10/04/20 19:38 Last Admin: 10/04/20 19:57 Dose: Not Given Documented by: LUCIA Vital Signs Vital signs: Vital Signs - 8 hr 10/04/20 14:46 10/04/20 17:00 10/04/20 17:01 Temperature 97.9 F Pulse Rate 123 H 140 H Respiratory Rate 18 16 Blood Pressure 86/65 L 89/73 L Pulse Oximetry 97 96 10/04/20 17:15 10/04/20 17:30 10/04/20 17:45 Temperature Pulse Rate 92 H 96 H 103 H Respiratory Rate 8 L 8 L 13 Blood Pressure 83/55 L 92/60 93/58 L Pulse Oximetry 93 93 93 10/04/20 17:55 10/04/20 18:00 10/04/20 18:15 Temperature Pulse Rate 115 H 102 H 117 H Respiratory Rate 20 10 L 17 Blood Pressure 102/61 95/61 Pulse Oximetry 94 83 L 95 10/04/20 18:16 10/04/20 18:30 10/04/20 18:45 Temperature Pulse Rate 107 H 116 H 129 H Respiratory Rate 14 19 15 Blood Pressure 85/60 L 81/61 L 97/74 Pulse Oximetry 97 94 10/04/20 19:00 10/04/20 19:15 10/04/20 19:30 Temperature Pulse Rate 110 H 127 H 126 H Respiratory Rate 12 17 8 L Blood Pressure 111/62 95/57 L Pulse Oximetry 90 L 10/04/20 19:45 10/04/20 19:52 10/04/20 20:00 Temperature Pulse Rate 127 H 136 H 132 H Respiratory Rate 12 19 16 Blood Pressure 128/74 Pulse Oximetry 96 10/04/20 20:01 10/04/20 20:03 10/04/20 20:04 Temperature Pulse Rate 133 H 136 H 127 H Respiratory Rate 23 Blood Pressure 101/61 113/66 91/59 L Pulse Oximetry 10/04/20 20:07 10/04/20 20:11 10/04/20 20:12 Temperature Pulse Rate 128 H 135 H 126 H Respiratory Rate 14 Blood Pressure 113/66 106/73 92/68 Pulse Oximetry 95 96 10/04/20 20:14 Temperature Pulse Rate 135 H Respiratory Rate 16 Blood Pressure 108/70 Pulse Oximetry 98 MDM - Back Pain/Injury Medical Records Attestation: I reviewed the patient's medical records. Lab Data Attestation: I reviewed the patient's lab results. Result diagrams: 10/04/20 16:45 10/04/20 16:45 Labs: Lab Results 10/04/20 10/04/20 10/04/20 Range/Units 16:45 16:45 16:45 WBC 1.2 L* (4.5-11.0) X10^3/uL RBC 3.98 L (4.5-5.9) X10^6/uL Hgb 11.7 L (13.5-17.5) g/dL Hct 34.1 L (41-53) % MCV 85.8 (80-100) fL MCH 29.4 (26-34) PG MCHC 34.2 (30-36) % RDW 22.1 H (11.6-14.8) % Plt Count 60 L (150-400) X10^3/uL Neut % (Auto) Not Reportable Lymph % (Auto) Not Reportable [place] % (Auto) Not Reportable Eos % (Auto) Not Reportable Baso % (Auto) Not Reportable Lymph # (Auto) Not Reportable [place] # (Auto) Not Reportable Baso # (Auto) Not Reportable Total Counted 50 Seg Neutrophils % 2.0 L (38-70) % Lymphocytes % (Manual) 78.0 H (25-45) % Atypical Lymphs % 2.0 H ( - 0) % Monocytes % (Manual) 4.0 (2-11) % Eosinophils % (Manual) 12.0 H (2-4) % Basophils % (Manual) 2.0 H (0-1) % Neutrophils # (Manual) 24 L (1704-4596) /uL RBC Morphology Not Reportable Hypochromasia 1+ H Anisocytosis 2+ H PT (10.1-12.7) SECONDS INR (0.9-1.3) APTT (26.4-36.2) SECONDS Sodium 130 L (137-145) mmol/L Potassium 5.4 H (3.4-5.1) mmol/L Chloride 99 (98-107) mmol/L Carbon Dioxide 27 (22-32) mmol/L BUN 29 H (9-20) mg/dL Creatinine 0.83 (0.66-1.25) mg/dL Estimated GFR > 60.0 (>60) mL/min BUN/Creatinine Ratio 34.9 H (6-22) Glucose 324 H (80-110) mg/dL Lactate 3.1 H (0.7-2.1) mmol/L Calcium 10.4 H (8.4-10.2) mg/dL Total Bilirubin 1.1 (0.2-1.3) mg/dL AST 19 (17-59) IU/L ALT 17 (<50) IU/L Alkaline Phosphatase 83 (38-126) U/L Total Creatine Kinase (55-170) U/L CK-MB (CK-2) CK-MB (CK-2) Rel Index Troponin I (0.01-0.034) ng/mL NT-Pro-B Natriuret Pep (<125) pg/mL Total Protein 5.5 L (6.3-8.2) g/dL Albumin 2.9 L (3.5-5.0) g/dL Globulin 2.6 (1.7-4.1) g/dL Albumin/Globulin Ratio 1.1 (1.0-2.8) Lipase 26 (23-300) U/L Procalcitonin 0.16 (<0.5) ng/mL SARS-CoV-2 (PCR) (Negative) 10/04/20 10/04/20 10/04/20 Range/Units 16:45 16:45 17:16 WBC (4.5-11.0) X10^3/uL RBC (4.5-5.9) X10^6/uL Hgb (13.5-17.5) g/dL Hct (41-53) % MCV (80-100) fL MCH (26-34) PG MCHC (30-36) % RDW (11.6-14.8) % Plt Count (150-400) X10^3/uL Neut % (Auto) Lymph % (Auto) [place] % (Auto) Eos % (Auto) Baso % (Auto) Lymph # (Auto) [place] # (Auto) Baso # (Auto) Total Counted Seg Neutrophils % (38-70) % Lymphocytes % (Manual) (25-45) % Atypical Lymphs % ( - 0) % Monocytes % (Manual) (2-11) % Eosinophils % (Manual) (2-4) % Basophils % (Manual) (0-1) % Neutrophils # (Manual) (7126-4688) /uL RBC Morphology Hypochromasia Anisocytosis PT 14.4 H (10.1-12.7) SECONDS INR 1.3 (0.9-1.3) APTT 27 (26.4-36.2) SECONDS Sodium (137-145) mmol/L Potassium (3.4-5.1) mmol/L Chloride (98-107) mmol/L Carbon Dioxide (22-32) mmol/L BUN (9-20) mg/dL Creatinine (0.66-1.25) mg/dL Estimated GFR (>60) mL/min BUN/Creatinine Ratio (6-22) Glucose (80-110) mg/dL Lactate (0.7-2.1) mmol/L Calcium (8.4-10.2) mg/dL Total Bilirubin (0.2-1.3) mg/dL AST (17-59) IU/L ALT (<50) IU/L Alkaline Phosphatase (38-126) U/L Total Creatine Kinase < 20 L (55-170) U/L CK-MB (CK-2) TNP CK-MB (CK-2) Rel Index TNP Troponin I < 0.012 (0.01-0.034) ng/mL NT-Pro-B Natriuret Pep 1370 H (<125) pg/mL Total Protein (6.3-8.2) g/dL Albumin (3.5-5.0) g/dL Globulin (1.7-4.1) g/dL Albumin/Globulin Ratio (1.0-2.8) Lipase (23-300) U/L Procalcitonin (<0.5) ng/mL SARS-CoV-2 (PCR) Negative (Negative) 10/04/20 Range/Units 19:25 WBC (4.5-11.0) X10^3/uL RBC (4.5-5.9) X10^6/uL Hgb (13.5-17.5) g/dL Hct (41-53) % MCV (80-100) fL MCH (26-34) PG MCHC (30-36) % RDW (11.6-14.8) % Plt Count (150-400) X10^3/uL Neut % (Auto) Lymph % (Auto) [place] % (Auto) Eos % (Auto) Baso % (Auto) Lymph # (Auto) [place] # (Auto) Baso # (Auto) Total Counted Seg Neutrophils % (38-70) % Lymphocytes % (Manual) (25-45) % Atypical Lymphs % ( - 0) % Monocytes % (Manual) (2-11) % Eosinophils % (Manual) (2-4) % Basophils % (Manual) (0-1) % Neutrophils # (Manual) (8604-1908) /uL RBC Morphology Hypochromasia Anisocytosis PT (10.1-12.7) SECONDS INR (0.9-1.3) APTT (26.4-36.2) SECONDS Sodium (137-145) mmol/L Potassium (3.4-5.1) mmol/L Chloride (98-107) mmol/L Carbon Dioxide (22-32) mmol/L BUN (9-20) mg/dL Creatinine (0.66-1.25) mg/dL Estimated GFR (>60) mL/min BUN/Creatinine Ratio (6-22) Glucose (80-110) mg/dL Lactate 3.0 H (0.7-2.1) mmol/L Calcium (8.4-10.2) mg/dL Total Bilirubin (0.2-1.3) mg/dL AST (17-59) IU/L ALT (<50) IU/L Alkaline Phosphatase (38-126) U/L Total Creatine Kinase (55-170) U/L CK-MB (CK-2) CK-MB (CK-2) Rel Index Troponin I (0.01-0.034) ng/mL NT-Pro-B Natriuret Pep (<125) pg/mL Total Protein (6.3-8.2) g/dL Albumin (3.5-5.0) g/dL Globulin (1.7-4.1) g/dL Albumin/Globulin Ratio (1.0-2.8) Lipase (23-300) U/L Procalcitonin (<0.5) ng/mL SARS-CoV-2 (PCR) (Negative) Urine Dip Bedside Urine Glucose 500 mg/dl Bedside Urine Bilirubin - Negative Bedside Urine Ketone - Negative Urine Specific [place] 1.015 Bedside Urine Occult Blood - Negative Bedside Urine pH 6 Bedside Urine Protein - Negative Bedside Urine Urobilinogen - Negative Bedside Urine Nitrite - Negative Bedside Urine Leukocytes - Negative Esterase Imaging Data Chest x-ray: Radiologist's Impression: [address] [id number] ReportSigned Patient: Gage Wyatt AMR#: [id number]: 2Acct:[id number]/Sex: 70 / MDate of Service: 10/04/20Loc: EDAccession Number: [id number] Procedure: XR chest 1V Ordering Provider: Gagandeep Diaz D.O. PROCEDURE: XR CHEST 1V INDICATIONS: suspected sepsis TECHNIQUE: One view of the chest was acquired. COMPARISON: [facility], CHEST 2 VIEW, 06/25/2017, 11:41. FINDINGS: Surgical changes and devices: Right-sided Port-A-Cath tip in the right atrium Lungs and pleura: Lungs are clear. No pleural effusions or pneumothorax. Low lung volumes accentuate pulmonary interstitium and heart size. Mediastinum: Mediastinal contours appear normal. Heart size is normal. Bones and chest wall: No suspicious bony lesions. Overlying soft tissues appear unremarkable. IMPRESSION: No acute cardiopulmonary findings Dictated by: Gary Hernandez M.D. on 10/04/2020 at 16:35 Approved by: Gary Hernandez M.D. on 10/04/2020 at 16:36 ECG Data Attestation: I personally reviewed and interpreted this ECG as follows: Interpretation: A flutter Ventricular rate of 139 Normal QRS Normal QTC No ST T wave changes MDM Narrative Medical decision making narrative: Patient arrived with an initial complaint of generalized body pain and back pain secondary to his cancer. He states that the morphine that he has been given only makes him drowsy but does not improve any of his pain. He cannot take hydrocodone/oxycodone secondary to itching. He does have muscle relaxers at home. Upon arrival he was found to be AFib with RVR. He does have a history of atrial fibrillation. Is on a beta-rivera at home that has been taking as directed. He has no chest pain or shortness of breath or palpitations. Was hypotensive with the systolic blood pressures in the high 80s upon arrival this improved with fluids. Cultures were obtained. He was given cefepime. He is neutropenic. He is afebrile. Was given diltiazem and this improved his rate a small about however this gradually increased again. I did discuss the case with on-call Oncology is [facility]. The stated that given his presentation obtaining cultures and discharging him on his antibiotics would be appropriate as far as oncology standpoint. We are unable to keep his rate controlled with oral medications so he will be started on a Cardizem drip and admitted to the hospital for further evaluation treatment he did expressed understanding agreement with this. Discharge Plan Departure Patient Disposition: Admitted As Inpatient Clinical Impression: Atrial fibrillation with RVR, Lymphoma, Back pain
[2020-10-04] MEDS: CEFEPIME 2 GM in SODIUM CHLORIDE 0.9% 100 ML 200 ML IV (17:01)
[2020-10-04] MEDS: dilTIAZem 5 MG/ML SDV 10 MG IV (17:04)
[2020-10-04] MEDS: SODIUM CHLORIDE 0.9% 1,000 ML 1000 ML IV (17:06)
[2020-10-04 17:11] LABS: Hematocrit 34.1 % (41-53); Hemoglobin 11.7 g/dL (13.5-17.5); Mean Corpuscular HGB Conc 34.2 % (30-36); Mean Corpuscular Hemoglobin 29.4 PG (26-34); Mean Corpuscular Volume 85.8 fL (80-100); Platelet Count 60 X10^3/uL (150-400); Red Blood Cell Count 3.98 X10^6/uL (4.5-5.9); Red Cell Distribution Width 22.1 % (11.6-14.8)
[2020-10-04 17:12] LABS: INR 1.3 (0.9-1.3); Prothrombin Time 14.4 SECONDS (10.1-12.7)
[2020-10-04 17:15] LABS: Add Manual Diff / Slide Review YES; PTT Partial Thromboplastin Tim 27 SECONDS (26.4-36.2); White Blood Cell Count 1.2 X10^3/uL (4.5-11.0)
[2020-10-04 17:19] LABS: Creatine Kinase < 20 U/L (55-170); Lactate (Lactic Acid) 3.1 mmol/L (0.7-2.1)
[2020-10-04 17:21] LABS: Alanine Aminotransferase 17 IU/L (<50); Albumin 2.9 g/dL (3.5-5.0); Albumin Globulin Ratio 1.1 (1.0-2.8); Alkaline Phosphatase 83 U/L (38-126); Aspartate Aminotransferase 19 IU/L (17-59); BUN Creatinine Ratio 34.9 (6-22); Bilirubin Total 1.1 mg/dL (0.2-1.3); Blood Urea Nitrogen 29 mg/dL (9-20); Calcium 10.4 mg/dL (8.4-10.2); Carbon Dioxide 27 mmol/L (22-32); Chloride 99 mmol/L (98-107); Estimated Glomerular Filt Rate > 60.0 mL/min (>60); Globulin 2.6 g/dL (1.7-4.1); Glucose 324 mg/dL (80-110); HEMOLYSIS < 15 (0-50); Lipase 26 U/L (23-300); Sodium 130 mmol/L (137-145); Total Protein 5.5 g/dL (6.3-8.2)
[2020-10-04 17:26] LABS: Potassium 5.4 mmol/L (3.4-5.1)
[2020-10-04 17:32] LABS: NT-proBNP (BNP-Adult 18+) 1370 pg/mL (<125); Troponin I < 0.012 ng/mL (0.01-0.034)
[2020-10-04 17:37] LABS: Procalcitonin 0.16 ng/mL (<0.5)
[2020-10-04 17:43] LABS: Neutrophils Absolute Manual 24 /uL (3000-5900); Total Cells Counted 50
[2020-10-04 17:44] LABS: Anisocytosis 2+; Hypochromasia 1+
[2020-10-04 18:16] LABS: COVID19 - ADMIT (NP swab/PCR) Negative (Negative)
[2020-10-04 19:01] LABS: Reflexed Lactate in 2 Hours Y
[2020-10-04] MEDS: HYDROMORPHONE 0.5 MG INJ IV (19:29)
[2020-10-04] MEDS: dilTIAZem 125 MG in SODIUM CHLORIDE 0.9% 100 ML IV (20:03)
[2020-10-04] MEDS: SODIUM CHLORIDE 0.9% 500 ML 1000 ML IV (20:43)
[2020-10-04 21:38] LABS: Magnesium 1.1 mg/dL (1.6-2.3)
[2020-10-04 21:43] LABS: Hemoglobin A1C% w Est Avg Glu 7.3 % (4.0-6.0)
[2020-10-04 21:53] LABS: Troponin I < 0.012 ng/mL (0.01-0.034)
[2020-10-04] MEDS: APIXABAN 5 MG TABLET 2.5 MG PO (22:04)
[2020-10-04] MEDS: METFORMIN HCL 500 MG TABLET 1000 MG PO (22:05)
[2020-10-04] MEDS: ACYCLOVIR 400 MG TABLET PO (22:05)
[2020-10-04] MEDS: TACROLIMUS 0.5 MG CAPSULE PO (22:05)
[2020-10-04] MEDS: FUROSEMIDE 20 MG TABLET 40 MG PO (22:06)
[2020-10-04] MEDS: levoFLOXacin 250 MG TABLET 750 MG PO (22:06)
[2020-10-04] MEDS: INSULIN LISPRO 100 UNIT/ML 3ML VIAL SUBCUT (22:07)
[2020-10-04 22:08] LABS: Thyroid Stimulating Hormone 2.56 uIU/mL (0.47-4.68)
[2020-10-04] MEDS: MAGNESIUM SULFATE 2 GM/50 ML PIGGYBACK IV (22:19)
--- NOTE | 2020-10-04 23:06 | P.HP_ITS ---
History of Present Illness History of Present Illness Date Patient Seen: 10/04/20 Time Patient Seen: 21:14 Chief complaint: WHOLE BODY PAIN Narrative: Patient is a 70-year-old male Gage Wyatt. he present to the Ed today with a chief complaint of Chronic back pain exacerbation, he as been taking his morphine at home however today he feels like that the morphine is not working for him and he has increasing pain all over his body. He did take an extra dose of the morphine without any improvement. Upon exam in the ED patient was found to be in atrial fibrillation with RVR, with rate varying between 108- 145, and hypotensive with BPs 83/58 to 92/68. Patient did have a history of atrial fibrillation and was taking nodolol for control, but was on on anticoag. The ED provided 1 dose of Cardizem which did not improve heart rate or resolve Afib. 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 Since that time he has subsequently developed lymphoma. Is being followed by the [facility]. Is currently undergoing chemotherapy. His last dose of chemotherapy was approximately 1 month ago. He is on prophylactic antibiotics for this. No chest pain. No shortness of breath. Does have some lightheadedness. No fevers. Jen pittman contacted and consulted with [facility] who was able to review patient's recent history and charts as well as review the case today and advise that the patient patient's cancer or liver transplant did not appear to be clinically relevant at this time and control the patient's atrial fibrillation and the patient be discharged on oral antibiotics and follow up with his oncologist. Upon admit patient hypotensive at 81/61, tachycardic in atrial fibrillation with a heart rate of 135, RR 16, and 98% on room air. The patient was started on a diltiazem drip and titrated up to 10mcg/min which cardioverted him, BP stabilized at 94/53, with a heart rate of 91. Patient is resting comfortably in the bed and was sound asleep. Patient denies any chest pain, shortness of breath, headache, changes in vision, numbness, tingling, nausea, vomiting, abdominal pain, fever, body aches, or chills. Patient states that his back pa in is improved at a 5/10 and has no concerns at this time. Patient's vitals upon admit he has severe chronic leukopenia with WBC 1.2, HGB 11.7, HCT 34.1, platelets 60. Oncology reported these are in line with his baseline labs. Patient had mild hyponatremia at 1:30 a.m., BUN 29, glucose 324, and a potassium5.4, hypomagnesium 1.1., very mild hypercalcium 10.4, elevated lactate 3.0, and A1c 7.3. Patient's BNP was elevated slightly at 1370 though do not suspect this to be cardiac related, Albumin low at 2.9, patient's lipase and procalcitonin were within normal limits. Patient has a admit sofa score:3 but believe this is related to the patient's lymphoma. Patient's EKG in the ER demonstrated atrial flutter with a rate of [address] or T-wave changes. The patient's chest x-ray demonstrated no acute cardiopulmonary processes. Patient admitted for atrial fibrillation with RVR uncontrolled and chronic back pain exacerbation related to B-cell lymphoma. Patient History Medical History (Updated 10/05/20 @ 00:23 by OBIE Lopez) Atrial fibrillation B-cell lymphoma Chronic back pain greater than 3 months duration Diabetes mellitus History of cirrhosis of liver History of hepatitis C Non-insulin dependent type 2 diabetes mellitus Surgical History Liver transplant recipient Family & Social History Family History (Updated 10/05/20 @ 00:24 by OBIE Lopez) Mother Atrial fibrillation and flutter Father Chronic headaches Social History: household members spouse,family Prior Living Arrangements House Safety & Behavioral: Feels Safe in Current Yes Environment Been Physically Hurt or No Threatened By a Person Suicidal Ideation Description None Suicide Plan Description No Plan Tobacco & Substance use: Smoking Status Former smoker alcohol intake never Substance Use Type does not use Meds Home Medications and Allergies Home Medications Medication Instructions Recorded Confirmed Type levofloxacin 750 mg tablet 750 mg PO QDAY #5 tab 06/25/17 10/04/20 Rx (Levaquin) acetaminophen 300 mg-codeine 30 mg 1 tab PO Q4-6H PRN #20 tab 07/03/20 10/04/20 Rx tablet acyclovir 400 mg tablet 400 mg PO BID 10/04/20 10/04/20 History baclofen 10 mg tablet 10 mg PO TID PRN 10/04/20 10/04/20 History entecavir 0.5 mg tablet 0.5 mg PO DAILY 10/04/20 10/04/20 History finasteride 5 mg tablet 5 mg PO DAILY 10/04/20 10/04/20 History furosemide 20 mg tablet 40 mg PO QAM 10/04/20 10/04/20 History metformin 500 mg tablet 1,000 mg PO BID 10/04/20 10/04/20 History morphine 15 mg immediate release 15 mg PO Q6HR PRN 10/04/20 10/04/20 History tablet nadolol 40 mg tablet 40 mg PO DAILY 10/04/20 10/04/20 History prochlorperazine maleate 10 mg 10 mg PO Q6HR PRN 10/04/20 10/04/20 History tablet sitagliptin 25 mg tablet (Januvia) 25 mg PO DAILY 10/04/20 10/04/20 History tacrolimus 0.5 mg capsule, 0.5 mg PO BID 10/04/20 10/04/20 History immediate-release tizanidine 2 mg capsule 2 mg PO TID PRN 10/04/20 10/04/20 History Allergies Allergy/AdvReac Type Severity Reaction Status Date / Time hydrocodone [HYDROCODONE] Allergy Severe SEVERE Verified 10/04/20 17:54 ITCHING tetracycline [TETRACYCLINE] Allergy Unknown Verified 10/04/20 17:54 bee venom protein (honey bee) Allergy Verified 10/04/20 17:54 oxycodone [OXYCODONE] AdvReac Severe SEVERE Verified 10/04/20 17:54 ITCHING Review of Systems Review of Systems Narrative: All systems reviewed with the patient and are negative except otherwise documented. Exam Vital Signs (past 8 hours): - 10/04/20 17:00 10/04/20 17:01 10/04/20 17:15 Temperature Pulse Rate 140 H 92 H Respiratory Rate 16 8 L Blood Pressure 89/73 L 83/55 L Pulse Oximetry 96 93 10/04/20 17:30 10/04/20 17:45 10/04/20 17:55 Temperature Pulse Rate 96 H 103 H 115 H Respiratory Rate 8 L 13 20 Blood Pressure 92/60 93/58 L 102/61 Pulse Oximetry 93 93 94 10/04/20 18:00 10/04/20 18:15 10/04/20 18:16 Temperature Pulse Rate 102 H 117 H 107 H Respiratory Rate 10 L 17 14 Blood Pressure 95/61 85/60 L Pulse Oximetry 83 L 95 97 10/04/20 18:30 10/04/20 18:45 10/04/20 19:00 Temperature Pulse Rate 116 H 129 H 110 H Respiratory Rate 19 15 12 Blood Pressure 81/61 L 97/74 111/62 Pulse Oximetry 94 10/04/20 19:15 10/04/20 19:30 10/04/20 19:45 Temperature Pulse Rate 127 H 126 H 127 H Respiratory Rate 17 8 L 12 Blood Pressure 95/57 L Pulse Oximetry 90 L 96 10/04/20 19:52 10/04/20 20:00 10/04/20 20:01 Temperature Pulse Rate 136 H 132 H 133 H Respiratory Rate 19 16 23 Blood Pressure 128/74 101/61 Pulse Oximetry 10/04/20 20:03 10/04/20 20:04 10/04/20 20:07 Temperature Pulse Rate 136 H 127 H 128 H Respiratory Rate 14 Blood Pressure 113/66 91/59 L 113/66 Pulse Oximetry 10/04/20 20:11 10/04/20 20:12 10/04/20 20:14 Temperature Pulse Rate 135 H 126 H 135 H Respiratory Rate 16 Blood Pressure 106/73 92/68 108/70 Pulse Oximetry 95 96 98 10/04/20 20:16 10/04/20 20:18 10/04/20 20:20 Temperature Pulse Rate 135 H 137 H 145 H Respiratory Rate 13 20 19 Blood Pressure 99/62 90/52 L Pulse Oximetry 98 97 98 10/04/20 20:22 10/04/20 20:24 10/04/20 20:26 Temperature Pulse Rate 137 H 129 H 140 H Respiratory Rate 22 14 Blood Pressure 83/58 L 86/56 L Pulse Oximetry 95 96 97 10/04/20 20:28 10/04/20 20:30 10/04/20 20:32 Temperature Pulse Rate 129 H 131 H 132 H Respiratory Rate 23 Blood Pressure 85/59 L 84/68 L 87/67 L Pulse Oximetry 96 97 95 10/04/20 20:34 10/04/20 20:36 10/04/20 20:38 Temperature Pulse Rate 130 H 132 H 126 H Respiratory Rate 16 20 20 Blood Pressure 101/63 101/69 102/67 Pulse Oximetry 93 95 96 10/04/20 20:40 10/04/20 20:42 10/04/20 20:44 Temperature Pulse Rate 120 H 119 H 123 H Respiratory Rate 12 Blood Pressure 104/60 85/54 L 92/61 Pulse Oximetry 96 95 96 10/04/20 20:46 10/04/20 21:00 10/04/20 21:02 Temperature 97.1 F L Pulse Rate 122 H 125 H Respiratory Rate 13 25 H Blood Pressure 92/54 L 121/72 121/72 Pulse Oximetry 99 10/04/20 21:24 10/04/20 21:26 10/04/20 21:28 Temperature Pulse Rate 118 H 118 H 120 H Respiratory Rate 12 7 L 13 Blood Pressure Pulse Oximetry 96 95 95 10/04/20 21:30 10/04/20 21:32 10/04/20 21:34 Temperature Pulse Rate 117 H 126 H 116 H Respiratory Rate 13 7 L 8 L Blood Pressure Pulse Oximetry 95 94 94 10/04/20 21:36 10/04/20 21:38 10/04/20 21:40 Temperature Pulse Rate 122 H 122 H 116 H Respiratory Rate 8 L 8 L 8 L Blood Pressure Pulse Oximetry 94 93 97 10/04/20 21:42 10/04/20 21:44 10/04/20 21:46 Temperature Pulse Rate 114 H 120 H 116 H Respiratory Rate 8 L 8 L 8 L Blood Pressure Pulse Oximetry 95 94 93 10/04/20 21:48 10/04/20 21:50 10/04/20 21:52 Temperature Pulse Rate 114 H 117 H 112 H Respiratory Rate 8 L 8 L 9 L Blood Pressure Pulse Oximetry 93 91 92 10/04/20 21:54 10/04/20 21:56 10/04/20 21:58 Temperature Pulse Rate 112 H 110 H 108 H Respiratory Rate 8 L 9 L 7 L Blood Pressure Pulse Oximetry 93 91 90 L 10/04/20 22:00 10/04/20 22:02 10/04/20 22:04 Temperature Pulse Rate 101 H 101 H 99 H Respiratory Rate 9 L 9 L 10 L Blood Pressure Pulse Oximetry 90 L 90 L 91 10/04/20 22:06 10/04/20 22:08 10/04/20 22:10 Temperature Pulse Rate 97 H 98 H 93 H Respiratory Rate 9 L 15 17 Blood Pressure Pulse Oximetry 91 83 L 94 10/04/20 22:12 10/04/20 22:13 10/04/20 22:14 Temperature Pulse Rate 92 H 90 89 Respiratory Rate 16 16 20 Blood Pressure 94/53 L 94/53 L Pulse Oximetry 94 94 93 10/04/20 22:16 10/04/20 22:18 10/04/20 22:20 Temperature Pulse Rate 86 92 H 90 Respiratory Rate 21 18 15 Blood Pressure Pulse Oximetry 92 10/04/20 22:22 10/04/20 22:24 10/04/20 22:26 Temperature Pulse Rate 82 83 87 Respiratory Rate 26 H 15 22 Blood Pressure Pulse Oximetry 10/04/20 22:28 10/04/20 22:30 10/04/20 22:32 Temperature Pulse Rate 84 84 82 Respiratory Rate 9 L 8 L 8 L Blood Pressure Pulse Oximetry 10/04/20 22:34 10/04/20 22:36 10/04/20 22:38 Temperature Pulse Rate 84 84 85 Respiratory Rate 8 L 8 L 8 L Blood Pressure Pulse Oximetry 10/04/20 22:40 10/04/20 22:42 10/04/20 22:44 Temperature Pulse Rate 82 85 82 Respiratory Rate 8 L 8 L 12 Blood Pressure Pulse Oximetry 10/04/20 22:46 10/04/20 22:48 10/04/20 22:50 Temperature Pulse Rate 81 83 83 Respiratory Rate 10 L 9 L 8 L Blood Pressure Pulse Oximetry 10/04/20 22:52 10/04/20 22:54 10/04/20 22:56 Temperature Pulse Rate 82 87 83 Respiratory Rate 7 L 8 L 8 L Blood Pressure Pulse Oximetry 10/04/20 22:58 Temperature Pulse Rate 91 H Respiratory Rate 14 Blood Pressure Pulse Oximetry Oxygen Delivery Method Room Air Oxygen Flow Rate 0 Narrative Exam Narrative: General: Patient appears as a well-developed, well-nourished male, in no distress at this time. Patients physical presentation does not reflect his poor complex state of health. HEENT: Normocephalic, atraumatic, extraocular muscles intact, oral pharynx is clear and mucous membranes are dry. Neck is supple and symmetric, trachea is midline, no adenopathy, no thyroid enlargement, nontender, no masses palpated. Negative for JVD Chest: Normal AP diameter and contour without kyphoscoliosis, no nasal flaring, retractions, or tachypneic labored. Patient has a port present to right upper chest area, without signs of infection. Lungs: Auscultation of all lung tellez are clear without adventitious sounds, wheezes, rhonchi, or rales. Cardio: Tachycardiac irregular rate and rhythm. Abdomen: Soft nontender, negative for organomegaly, or masses. Bowel sounds are present in all 4 quadrants without guarding or rebound, no CVA tenderness. Musculoskeletal: Muscle strength and tone are equal within normal limits, no deformity, crepitus, effusions, cyanosis, clubbing or edema present. Full range of motion intact radial and pedal pulses are normal. Skin: Warm dry and intact without rashes, ulcerations or petechiae. Neuro: Alert and orientated x3, strength is +5/5 in all extremities, sensation to touch intact, no gross deficits noted of cranial nerves. Psych: Patient has a well-kept appearance, appropriate affect, mental status attitude thought context and judgment are appropriate for age. Objective Labs Result Diagrams: 10/04/20 16:45 10/05/20 01:15 Labs: Laboratory Results - last 24 hr 10/04/20 10/04/20 10/04/20 16:45 16:45 16:45 WBC 1.2 L* RBC 3.98 L Hgb 11.7 L Hct 34.1 L MCV 85.8 MCH 29.4 MCHC 34.2 RDW 22.1 H Plt Count 60 L Neut % (Auto) Not Reportable Lymph % (Auto) Not Reportable [place] % (Auto) Not Reportable Eos % (Auto) Not Reportable Baso % (Auto) Not Reportable Lymph # (Auto) Not Reportable [place] # (Auto) Not Reportable Baso # (Auto) Not Reportable Total Counted 50 Seg Neutrophils % 2.0 L Lymphocytes % (Manual) 78.0 H Atypical Lymphs % 2.0 H Monocytes % (Manual) 4.0 Eosinophils % (Manual) 12.0 H Basophils % (Manual) 2.0 H Neutrophils # (Manual) 24 L RBC Morphology Not Reportable Hypochromasia 1+ H Anisocytosis 2+ H PT INR APTT Sodium 130 L Potassium 5.4 H Chloride 99 Carbon Dioxide 27 BUN 29 H Creatinine 0.83 Estimated GFR > 60.0 BUN/Creatinine Ratio 34.9 H Glucose 324 H Hemoglobin A1c Lactate 3.1 H Calcium 10.4 H Magnesium Total Bilirubin 1.1 AST 19 ALT 17 Alkaline Phosphatase 83 Total Creatine Kinase CK-MB (CK-2) CK-MB (CK-2) Rel Index Troponin I NT-Pro-B Natriuret Pep Total Protein 5.5 L Albumin 2.9 L Globulin 2.6 Albumin/Globulin Ratio 1.1 Lipase 26 Procalcitonin 0.16 TSH SARS-CoV-2 (PCR) 10/04/20 10/04/20 10/04/20 16:45 16:45 16:45 WBC RBC Hgb Hct MCV MCH MCHC RDW Plt Count Neut % (Auto) Lymph % (Auto) [place] % (Auto) Eos % (Auto) Baso % (Auto) Lymph # (Auto) Churchill # (Auto) Baso # (Auto) Total Counted Seg Neutrophils % Lymphocytes % (Manual) Atypical Lymphs % Monocytes % (Manual) Eosinophils % (Manual) Basophils % (Manual) Neutrophils # (Manual) RBC Morphology Hypochromasia Anisocytosis PT 14.4 H INR 1.3 APTT 27 Sodium Potassium Chloride Carbon Dioxide BUN Creatinine Estimated GFR BUN/Creatinine Ratio Glucose Hemoglobin A1c Lactate Calcium Magnesium 1.1 L Total Bilirubin AST ALT Alkaline Phosphatase Total Creatine Kinase < 20 L CK-MB (CK-2) TNP CK-MB (CK-2) Rel Index TNP Troponin I < 0.012 NT-Pro-B Natriuret Pep 1370 H Total Protein Albumin Globulin Albumin/Globulin Ratio Lipase Procalcitonin TSH SARS-CoV-2 (PCR) 10/04/20 10/04/20 10/04/20 16:45 16:45 17:16 WBC RBC Hgb Hct MCV MCH MCHC RDW Plt Count Neut % (Auto) Lymph % (Auto) [place] % (Auto) Eos % (Auto) Baso % (Auto) Lymph # (Auto) [place] # (Auto) Baso # (Auto) Total Counted Seg Neutrophils % Lymphocytes % (Manual) Atypical Lymphs % Monocytes % (Manual) Eosinophils % (Manual) Basophils % (Manual) Neutrophils # (Manual) RBC Morphology Hypochromasia Anisocytosis PT INR APTT Sodium Potassium Chloride Carbon Dioxide BUN Creatinine Estimated GFR BUN/Creatinine Ratio Glucose Hemoglobin A1c 7.3 H Lactate Calcium Magnesium Total Bilirubin AST ALT Alkaline Phosphatase Total Creatine Kinase CK-MB (CK-2) CK-MB (CK-2) Rel Index Troponin I NT-Pro-B Natriuret Pep Total Protein Albumin Globulin Albumin/Globulin Ratio Lipase Procalcitonin TSH 2.56 SARS-CoV-2 (PCR) Negative 10/04/20 10/04/20 19:25 21:20 WBC RBC Hgb Hct MCV MCH MCHC RDW Plt Count Neut % (Auto) Lymph % (Auto) [place] % (Auto) Eos % (Auto) Baso % (Auto) Lymph # (Auto) [place] # (Auto) Baso # (Auto) Total Counted Seg Neutrophils % Lymphocytes % (Manual) Atypical Lymphs % Monocytes % (Manual) Eosinophils % (Manual) Basophils % (Manual) Neutrophils # (Manual) RBC Morphology Hypochromasia Anisocytosis PT INR APTT Sodium Potassium Chloride Carbon Dioxide BUN Creatinine Estimated GFR BUN/Creatinine Ratio Glucose Hemoglobin A1c Lactate 3.0 H Calcium Magnesium Total Bilirubin AST ALT Alkaline Phosphatase Total Creatine Kinase CK-MB (CK-2) CK-MB (CK-2) Rel Index Troponin I < 0.012 NT-Pro-B Natriuret Pep Total Protein Albumin Globulin Albumin/Globulin Ratio Lipase Procalcitonin TSH SARS-CoV-2 (PCR) Assessment & Plan Assessment & Plan narrative: 1. Atrial fibrillation with RVR, paroxysmal, with hypotension, acute on chronic, present on admission -as evidence by tachycardia with a heart rate of 108-145 with hypotension BP's from 83/58 to 92/68, EKG demonstrated atrial flutter with a rate of [address] or T-wave changes. -patient started on diltiazem drip currently at 10mcg/hr. -patient started on Eliquis 2.5 mg b.i.d. (patient had not been anticoagulated for his atrial fibrillation prior to admit) -evaluate for cardiac, pulmonary, metabolic, drugs, neurogenic, sepsis, malignancy, chronic? -factors hypertension, age, diabetes, cardiac disease, sleep apnea, male, , rheumatic heart disease -Differential diagnosis PACs, atrial flutter, multifocal atrial tachycardia sinus tachycardia, sinus arrhythmia, SVT, WPW syndrome, and V-tach Consider [id number] Score: 1 (2.8 stroke risk), HAS-BLED score:2 (Moderate risk of major bleeding) -AFib that is not anticoagulated when it should be according to the [place] Vasc score has a high risk of embolic stroke. -Admit ICU-Continuous tele monitoring, once stabilized patient to follow up with out patient cardiology. -Serial troponins x3, proBNP, TSH,CBC, CMP -continue patients Lasix, Nadolol 2. Hypomagnesemia, acute, present on admission -magnesium 1.1 -2 g Mag rider ordered repeat magnesium when finished infusing 3. Chronic low back pain exacerbation, secondary to B-cell lymphoma, and liver transplant recipient due to cirrhosis and hepatitis, acute on chronic, present on admission -will hold patient's home morphine does and will provide IV 4 mg morphine q.4 hours as needed for pain management and control -will continue patient's of baclofen, finasteride, entecavir, prochlorperazine meleste, tacrolimus, tizanidine, levaquin 3. [id number] type 2 diabetes, acute on chronic, uncontrolled, present on admission -patient's blood sugar upon admit 324, A1c: 7.4% -will continue patient's metformin and 1000 mg b.i.d., will increase patient's Januvia 25 mg to 50 mg due to A1c. Code status: Full code Surrogate decision maker: Jerry SMITH PCR: Negative DVT/VTE prophylaxis: Placed patient on Eliquis 2.5 mg b.i.d. and SCDs Estimated length of stay: Patient required hospitalization due to uncontrolled atrial fibrillation/flutter with RVR and hypotension, while managing his back pain exacerbation, his length of stay is expected to be less than 2 midnights. Patient to follow-up with outpatient Cardiology following discharged once the patient is stabilized Scores GCS [place] coma scale eye opening: Spontaneous [place] coma scale verbal response: Orientated [place] coma scale motor response: Obey commands Richie coma scale total score: 15 SOFA PaO2/FIO2: >=400 mmHg Platelets: < 100 Bilirubin: < 1.2 mg/dL Hypotension: MAP < 70 mmHg [place] Coma Scale: 15 Renal: < 1.2 mg/dL SOFA Score: 3 Wells' Criteria for PE Clinical signs and symptoms of DVT: No PE is #1 Dx or equally likely: No Heart rate > 100: Yes Immobilization at least 3 days or surg in previous 4 weeks: No History of PE or DVT: No Hemoptysis: No Malignancy w/Treatment within 6 months or palliative: Yes Wells' PE Score total: 2.5 Quality MIPS - Admit I confirm the patient?s Advance Care Plan is present, Code status is documented, Surrogate decision maker is in patient?s record [If Yes, STOP here]: Yes
--- NOTE | 2020-10-04 23:13 | PC.ADMIT ---
924 [facility] Admission Note: The patient,Gage Wyatt,70 y/o, was given written information regarding hospital policies, unit procedures and contact persons. Patient's smoking status: Former smoker. Vital Signs - 8 hr 10/04/20 17:00 10/04/20 17:01 10/04/20 17:15 Temperature Pulse Rate 140 H 92 H Respiratory Rate 16 8 L Blood Pressure 89/73 L 83/55 L Pulse Oximetry 96 93 10/04/20 17:30 10/04/20 17:45 10/04/20 17:55 Temperature Pulse Rate 96 H 103 H 115 H Respiratory Rate 8 L 13 20 Blood Pressure 92/60 93/58 L 102/61 Pulse Oximetry 93 93 94 10/04/20 18:00 10/04/20 18:15 10/04/20 18:16 Temperature Pulse Rate 102 H 117 H 107 H Respiratory Rate 10 L 17 14 Blood Pressure 95/61 85/60 L Pulse Oximetry 83 L 95 97 10/04/20 18:30 10/04/20 18:45 10/04/20 19:00 Temperature Pulse Rate 116 H 129 H 110 H Respiratory Rate 19 15 12 Blood Pressure 81/61 L 97/74 111/62 Pulse Oximetry 94 10/04/20 19:15 10/04/20 19:30 10/04/20 19:45 Temperature Pulse Rate 127 H 126 H 127 H Respiratory Rate 17 8 L 12 Blood Pressure 95/57 L Pulse Oximetry 90 L 96 10/04/20 19:52 10/04/20 20:00 10/04/20 20:01 Temperature Pulse Rate 136 H 132 H 133 H Respiratory Rate 19 16 23 Blood Pressure 128/74 101/61 Pulse Oximetry 10/04/20 20:03 10/04/20 20:04 10/04/20 20:07 Temperature Pulse Rate 136 H 127 H 128 H Respiratory Rate 14 Blood Pressure 113/66 91/59 L 113/66 Pulse Oximetry 10/04/20 20:11 10/04/20 20:12 10/04/20 20:14 Temperature Pulse Rate 135 H 126 H 135 H Respiratory Rate 16 Blood Pressure 106/73 92/68 108/70 Pulse Oximetry 95 96 98 10/04/20 20:16 10/04/20 20:18 10/04/20 20:20 Temperature Pulse Rate 135 H 137 H 145 H Respiratory Rate 13 20 19 Blood Pressure 99/62 90/52 L Pulse Oximetry 98 97 98 10/04/20 20:22 10/04/20 20:24 10/04/20 20:26 Temperature Pulse Rate 137 H 129 H 140 H Respiratory Rate 22 14 Blood Pressure 83/58 L 86/56 L Pulse Oximetry 95 96 97 10/04/20 20:28 10/04/20 20:30 10/04/20 20:32 Temperature Pulse Rate 129 H 131 H 132 H Respiratory Rate 23 Blood Pressure 85/59 L 84/68 L 87/67 L Pulse Oximetry 96 97 95 10/04/20 20:34 10/04/20 20:36 10/04/20 20:38 Temperature Pulse Rate 130 H 132 H 126 H Respiratory Rate 16 20 20 Blood Pressure 101/63 101/69 102/67 Pulse Oximetry 93 95 96 10/04/20 20:40 10/04/20 20:42 10/04/20 20:44 Temperature Pulse Rate 120 H 119 H 123 H Respiratory Rate 12 Blood Pressure 104/60 85/54 L 92/61 Pulse Oximetry 96 95 96 10/04/20 20:46 10/04/20 21:00 10/04/20 21:02 Temperature 97.1 F L Pulse Rate 122 H 125 H Respiratory Rate 13 25 H Blood Pressure 92/54 L 121/72 121/72 Pulse Oximetry 99 10/04/20 21:24 10/04/20 21:26 10/04/20 21:28 Temperature Pulse Rate 118 H 118 H 120 H Respiratory Rate 12 7 L 13 Blood Pressure Pulse Oximetry 96 95 95 10/04/20 21:30 10/04/20 21:32 10/04/20 21:34 Temperature Pulse Rate 117 H 126 H 116 H Respiratory Rate 13 7 L 8 L Blood Pressure Pulse Oximetry 95 94 94 10/04/20 21:36 10/04/20 21:38 10/04/20 21:40 Temperature Pulse Rate 122 H 122 H 116 H Respiratory Rate 8 L 8 L 8 L Blood Pressure Pulse Oximetry 94 93 97 10/04/20 21:42 10/04/20 21:44 10/04/20 21:46 Temperature Pulse Rate 114 H 120 H 116 H Respiratory Rate 8 L 8 L 8 L Blood Pressure Pulse Oximetry 95 94 93 10/04/20 21:48 10/04/20 21:50 10/04/20 21:52 Temperature Pulse Rate 114 H 117 H 112 H Respiratory Rate 8 L 8 L 9 L Blood Pressure Pulse Oximetry 93 91 92 10/04/20 21:54 10/04/20 21:56 10/04/20 21:58 Temperature Pulse Rate 112 H 110 H 108 H Respiratory Rate 8 L 9 L 7 L Blood Pressure Pulse Oximetry 93 91 90 L 10/04/20 22:00 10/04/20 22:02 10/04/20 22:04 Temperature Pulse Rate 101 H 101 H 99 H Respiratory Rate 9 L 9 L 10 L Blood Pressure Pulse Oximetry 90 L 90 L 91 10/04/20 22:06 10/04/20 22:08 10/04/20 22:10 Temperature Pulse Rate 97 H 98 H 93 H Respiratory Rate 9 L 15 17 Blood Pressure Pulse Oximetry 91 83 L 94 10/04/20 22:12 10/04/20 22:13 10/04/20 22:14 Temperature Pulse Rate 92 H 90 89 Respiratory Rate 16 16 20 Blood Pressure 94/53 L 94/53 L Pulse Oximetry 94 94 93 10/04/20 22:16 10/04/20 22:18 10/04/20 22:20 Temperature Pulse Rate 86 92 H 90 Respiratory Rate 21 18 15 Blood Pressure Pulse Oximetry 92 10/04/20 22:22 10/04/20 22:24 10/04/20 22:26 Temperature Pulse Rate 82 83 87 Respiratory Rate 26 H 15 22 Blood Pressure Pulse Oximetry 10/04/20 22:28 10/04/20 22:30 10/04/20 22:32 Temperature Pulse Rate 84 84 82 Respiratory Rate 9 L 8 L 8 L Blood Pressure Pulse Oximetry 10/04/20 22:34 10/04/20 22:36 10/04/20 22:38 Temperature Pulse Rate 84 84 85 Respiratory Rate 8 L 8 L 8 L Blood Pressure Pulse Oximetry 10/04/20 22:40 10/04/20 22:42 10/04/20 22:44 Temperature Pulse Rate 82 85 82 Respiratory Rate 8 L 8 L 12 Blood Pressure Pulse Oximetry 10/04/20 22:46 10/04/20 22:48 10/04/20 22:50 Temperature Pulse Rate 81 83 83 Respiratory Rate 10 L 9 L 8 L Blood Pressure Pulse Oximetry 10/04/20 22:52 10/04/20 22:54 10/04/20 22:56 Temperature Pulse Rate 82 87 83 Respiratory Rate 7 L 8 L 8 L Blood Pressure Pulse Oximetry 10/04/20 22:58 Temperature Pulse Rate 91 H Respiratory Rate 14 Blood Pressure Pulse Oximetry Patient admitted from ED to ICU under hospitalists' care at 2100. Patient is A/Ox4, on RA, with dilt @ 5ml/hr running. Patient able to pivot from stretcher to bed but is unsteady, says he's been pretty weak ever since starting chemo and uses a walker at home, which is in the room. Initial BP is WNL, HR is afib RVR >120 on telemetry. Patient has no complaints of pain at the moment, says he has chronic back pain and that the beds are uncomfortable for him. Denies chest pain, denies feeling SOB. Oriented to room and call light, able to make needs known. Bed alarm on.
[2020-10-05] VITALS (25 sets, daily range): BP systolic 82–107; BP diastolic 54–68; PULSE 85–120; RESP 11–25; TEMP 36.1–36.3; O2SAT 92–96
[2020-10-05] MEDS: MORPHINE 4 MG/ML INJ IV ×3 (00:28→15:37)
[2020-10-05 01:32] LABS: Alanine Aminotransferase 16 IU/L (<50); Albumin 2.6 g/dL (3.5-5.0); Alkaline Phosphatase 78 U/L (38-126); Aspartate Aminotransferase 18 IU/L (17-59); BUN Creatinine Ratio 32.5 (6-22); Bilirubin Total 1.4 mg/dL (0.2-1.3); Blood Urea Nitrogen 27 mg/dL (9-20); Calcium 10.2 mg/dL (8.4-10.2); Carbon Dioxide 27 mmol/L (22-32); Chloride 99 mmol/L (98-107); Estimated Glomerular Filt Rate > 60.0 mL/min (>60); Globulin 2.7 g/dL (1.7-4.1); Glucose 222 mg/dL (80-110); HEMOLYSIS < 15 (0-50); Magnesium 1.7 mg/dL (1.6-2.3); Sodium 131 mmol/L (137-145); Total Protein 5.3 g/dL (6.3-8.2)
[2020-10-05 01:37] LABS: Potassium 5.3 mmol/L (3.4-5.1)
[2020-10-05 05:07] LABS: INR 1.4 (0.9-1.3); Prothrombin Time 15.6 SECONDS (10.1-12.7)
[2020-10-05 05:12] LABS: Lactate (Lactic Acid) 2.6 mmol/L (0.7-2.1)
[2020-10-05 05:15] LABS: Hematocrit 30.6 % (41-53); Hemoglobin 10.5 g/dL (13.5-17.5); Mean Corpuscular HGB Conc 34.5 % (30-36); Mean Corpuscular Hemoglobin 29.2 PG (26-34); Mean Corpuscular Volume 84.7 fL (80-100); Platelet Count 58 X10^3/uL (150-400); Red Blood Cell Count 3.61 X10^6/uL (4.5-5.9); Red Cell Distribution Width 22.1 % (11.6-14.8)
[2020-10-05 05:17] LABS: Alanine Aminotransferase 16 IU/L (<50); Albumin 2.6 g/dL (3.5-5.0); Alkaline Phosphatase 73 U/L (38-126); Aspartate Aminotransferase 21 IU/L (17-59); BUN Creatinine Ratio 32.9 (6-22); Bilirubin Total 1.3 mg/dL (0.2-1.3); Blood Urea Nitrogen 27 mg/dL (9-20); Carbon Dioxide 26 mmol/L (22-32); Chloride 100 mmol/L (98-107); Estimated Glomerular Filt Rate > 60.0 mL/min (>60); Globulin 2.5 g/dL (1.7-4.1); Glucose 206 mg/dL (80-110); HEMOLYSIS 24 (0-50); Potassium 5.2 mmol/L (3.4-5.1); Sodium 131 mmol/L (137-145); Total Protein 5.1 g/dL (6.3-8.2)
[2020-10-05 05:22] LABS: NT-proBNP (BNP-Adult 18+) 970 pg/mL (<125)
[2020-10-05 05:25] LABS: Troponin I < 0.012 ng/mL (0.01-0.034)
[2020-10-05] MEDS: SODIUM CHLORIDE 0.9% 1,000 ML 1000 ML IV ×3 (05:26→16:38)
[2020-10-05 05:34] LABS: White Blood Cell Count 1.3 X10^3/uL (4.5-11.0)
[2020-10-05 05:35] LABS: Add Manual Diff / Slide Review YES
--- NOTE | 2020-10-05 05:37 | PC.NURSE ---
Enrollment Processor Note-Patient has been drowsy with slow speech, but oriented x4, dozed only briefly, medicated with 2mg IV morphine for his chronic pain, it was effective, lower dose given than ordered d/t hypotension, BPs 80s-90s/50s MAP 60s throughout night while on diltiazem gtt at 5mg/hr, HR Afib hovering around 100s until 0500, then started sustaining > 110, asymptomatic. Notified [place] PERSON who ordered 1000ml NS bolus, started. Patient has voided total 425ml clear radha urine.
[2020-10-05 06:48] LABS: Neutrophils Absolute Manual 26 /uL (3000-5900); Total Cells Counted 100
[2020-10-05 06:49] LABS: Anisocytosis 2+; Dohle Bodies 1+; Platelet Estimate Decreased on smear
[2020-10-05 06:58] LABS: Reflexed Lactate in 2 Hours Y
--- NOTE | 2020-10-05 07:24 | DI.ECHO.S_ITS ---
[facility]---------+ [facility] +---------+ : : [address] : : : : [id number] : : : : Phone: [phone] Echocardiogram Report + + :Name: REYNALDO DUFFY Study Date: 10/05/2020 Height: 68 in : :[facility] ReadingLocation: Weight: 189 lb: : Gender: Male BSA: 2.0 m2 : :: 1950 Age: 70 yrs BP: 97/66 mmHg: :Reason For Study: AFIB : :Ordering Physician: JIM, : :LOUIS CASH Performed By: Thao Coates : :Referring: LOUIS ROCHA MD : + + Interpretation Summary 1) Normal left ventricular thickness, size, wall motion, and systolic function (EF 60-65%). 2) Normal right ventricular size and function. 3) There is mild to moderate mitral regurgitation. 4) No prior Echo available for comparison. Procedure: A two-dimensional transthoracic echocardiogram with color flow and Doppler was performed. The study quality was technically adequate. There is no prior echocardiogram noted for this patient. The patient was in atrial fibrillation with heart rates between 94-136 bpm during the exam. Left Ventricle: The left ventricle is normal in size. There is mild concentric left ventricular hypertrophy. The ejection fraction is estimated to be 60-65%. Diastolic function could not be accurately assessed due to atrial fibrillation. Right Ventricle: The right ventricle is normal in size and function. Atria: The left atrium is moderately dilated. Right atrial size is normal. There is no Doppler evidence for an interatrial shunt. Mitral Valve: The mitral valve is normal in structure and function. There is mild to moderate mitral regurgitation. Aortic Valve: The aortic valve is mildly calcified. The aortic valve is trileaflet. The aortic valve opens well. There is no aortic valve stenosis. No aortic regurgitation is present. Tricuspid Valve: The tricuspid valve is normal in structure and function. There is mild tricuspid regurgitation. The right ventricular systolic pressure is estimated to be at least 25 mmHg based on an estimated right atrial pressure of 3 mm Hg. Pulmonic Valve: The pulmonic valve leaflets are thin and pliable; valve motion is normal. There is trace pulmonic regurgitation. Great Vessels: The aortic root is normal size. The dimensions of the ascending aorta are normal. The IVC is of normal diameter and collapses greater than 50% with a sniff. This suggests a low right atrial pressure of 3 mm Hg. Pericardium/ Pleura There is no pericardial effusion. There is no pleural effusion. MMode/2D Measurements & Calculations LVIDd: 4.9 cm LVOT diam: 2.3 cm LVIDs: 2.9 cm Ao root diam: 3.4 cm FS: 40.6 % asc Aorta Diam: 3.3 cm IVSd: 1.1 cm Ao Arch Diam (Prox Trans): 3.1 cm LVPWd: 1.2 cm LV barr. diameter/BSA (cm/m^2): 2.4 LV sys. diameter/BSA (cm/m^2): 1.5 LA A2 area: 25.6 cm2 RA long axis: 6.0 cm LA A4 area: 27.6 cm2 RA area: 18.7 cm2 LA length (vol): 6.8 cm RA vol: 49.7 ml LA vol: 88.5 ml RA : 24.9 ml/m2 LA vol index: 44.3 ml/m2 IVC diam: 0.94 cm TAPSE: 2.0 cm Doppler Measurements & Calculations Ao V2 max: 122.7 cm/sec LVOT Max Geronimo: 90.4 cm/sec Ao V2 mean: 93.4 cm/sec LV V1 max P.3 mmHg Ao max P.0 mmHg LV V1 VTI: 17.7 cm Ao mean P.8 mmHg JACI(I,D): 3.3 cm2 Ao V2 VTI: 22.3 cm JACI(V,D): 3.0 cm2 sev ratio: 0.79 JACI indexed to BSA (cm^2/m^2): 1.6 MV E max geronimo: 102.5 cm/sec TR max geronimo: 235.2 cm/sec MV A max geronimo: 2.2 cm/sec TR max P.1 mmHg MV E/A: 46.4 PA V2 max: 140.3 cm/sec Med Peak E' Geronimo: 9.0 cm/sec PA V2 mean: 95.6 cm/sec E/E' med: 11.5 PA mean P.3 mmHg Lat Peak E' Geronimo: 12.2 cm/sec PA pr(Accel): 22.5 mmHg E/E' lat: 8.4 E/e' average: 9.9 MV dec time: 0.10 sec SV(LVOT): 72.8 ml Reading Physician:10:40 AM
[2020-10-05] MEDS: ACYCLOVIR 400 MG TABLET PO ×2 (08:26→21:05)
[2020-10-05] MEDS: METFORMIN HCL 500 MG TABLET 1000 MG PO ×2 (08:26→21:05)
[2020-10-05] MEDS: TACROLIMUS 0.5 MG CAPSULE PO ×2 (08:26→21:04)
[2020-10-05] MEDS: FINASTERIDE 5 MG TABLET PO (08:29)
[2020-10-05] MEDS: levoFLOXacin 250 MG TABLET 750 MG PO (08:29)
[2020-10-05] MEDS: APIXABAN 5 MG TABLET PO (08:29)
[2020-10-05] MEDS: INSULIN LISPRO 100 UNIT/ML 3ML VIAL SUBCUT ×3 (08:30→17:03)
[2020-10-05] MEDS: SITAGLIPTIN 50 MG TABLET PO (08:57)
[2020-10-05] MEDS: dilTIAZem 30 MG TABLET PO ×2 (08:57→14:06)
--- NOTE | 2020-10-05 09:27 | CM.DANOTE ---
DCP: Case received, EMR reviewed and met with patient. , Amita, was not at bedside. Introduced self and role. Was able to obtain information from patient regarding his baseline activity level prior to hospitalization, as well as his current living situation. DCP assessment completed with information currently available. Patient is an 66 year old male who admitted yesterday afternoon to the care of the hospitalist team. Under care for lymphoma with chemo at [facility] Payer: confirmed: Medicare/[employer] Patient came to the hospital via private vehicle secondary back pain Patient was diagnosed Afib RVR that is resistant to medication in ED so was admitted for rate control and has had some sBPs in the 80s Met with patient who is A&O and independent at . Confirmed that he resides in [place] with his spouse, Amita Confirmed with patient and daughter that at his baseline, he had been independent, but lately has not been able to drive or do his routine activity to a back fracture he got from the chiropractor in july of this year, and he is on MSO4 for pain . He uses a cane at home. He drives normally but not since July. Hopes to resume lance. Discussed discharge planning briefly. Pt. denies home needs. P: DCP to continue to follow. Plan is home when medically stable.
[2020-10-05] MEDS: BACLOFEN 10 MG TABLET PO ×2 (10:49→23:32)
[2020-10-05] MEDS: DIGOXIN 500 MCG/2 ML AMPUL 250 MCG IV ×2 (12:00→17:50)
[2020-10-05] MEDS: polyethylene glycoL 3350 17 GM POWD.PACK PO (12:02)
[2020-10-05] MEDS: DOCUSATE 100 MG CAPSULE PO ×2 (12:02→21:05)
--- NOTE | 2020-10-05 12:21 | PM.PN.1 ---
Subjective Subjective Date Patient Seen: 10/05/20 Time Patient Seen: 08:00 Interval history: This morning he has no complaints aside from his chronic lower back pain. He denies fevers, cough, sob, abdominal pain, diarrhea, palpitations, chest pain. Exam Vital Signs (past 8 hours): - 10/05/20 04:30 10/05/20 05:14 10/05/20 06:00 Temperature Pulse Rate 114 H 113 H Respiratory Rate 25 H 14 Blood Pressure 82/57 L 90/63 Pulse Oximetry 94 95 10/05/20 07:00 10/05/20 07:05 10/05/20 08:00 Temperature 97.1 F L 97.1 F L Pulse Rate 115 H 120 H 114 H Respiratory Rate 16 16 17 Blood Pressure 88/59 L 89/60 L Pulse Oximetry 10/05/20 08:05 10/05/20 09:00 10/05/20 09:05 Temperature 97.0 F L Pulse Rate 115 H 97 H 94 H Respiratory Rate 17 12 Blood Pressure 97/66 Pulse Oximetry 95 95 10/05/20 10:00 10/05/20 10:01 10/05/20 10:05 Temperature Pulse Rate 107 H 115 H 114 H Respiratory Rate 16 13 Blood Pressure 95/54 L Pulse Oximetry 10/05/20 11:00 10/05/20 11:05 10/05/20 11:55 Temperature 97.0 F L Pulse Rate 109 H 105 H 105 H Respiratory Rate 13 14 Blood Pressure 93/62 Pulse Oximetry 95 10/05/20 12:00 Temperature 97.0 F L Pulse Rate 102 H Respiratory Rate 16 Blood Pressure 95/57 L Pulse Oximetry Oxygen Delivery Method Room Air Oxygen Flow Rate 0 Narrative Exam Narrative: General: no acute distress Lungs: clear bilaterally with no wheezes, rhonchi, rales Cardio: Tachycardiac irregular rate and rhythm. Abdomen: Soft nontender, negative for organomegaly, or masses. normal bowel sounds. Musculoskeletal: Muscle strength and tone are equal within normal limits Skin: Warm dry and intact without rashes Neuro: Alert and orientated x3, strength is +5/5 in all extremities, sensation to touch intact, no gross deficits noted of cranial nerves. Objective Labs Result Diagrams: 10/05/20 04:40 10/05/20 04:40 Labs: Laboratory Results - last 24 hr 10/04/20 10/04/2010/04/21 16:45 16:45 16:45 WBC 1.2 L* RBC 3.98 L Hgb 11.7 L Hct 34.1 L MCV 85.8 MCH 29.4 MCHC 34.2 RDW 22.1 H Plt Count 60 L Neut % (Auto) Not Reportable Lymph % (Auto) Not Reportable Luce % (Auto) Not Reportable Eos % (Auto) Not Reportable Baso % (Auto) Not Reportable Lymph # (Auto) Not Reportable Luce # (Auto) Not Reportable Baso # (Auto) Not Reportable Total Counted 50 Seg Neutrophils % 2.0 L Band Neutrophils % Lymphocytes % (Manual) 78.0 H Atypical Lymphs % 2.0 H Monocytes % (Manual) 4.0 Eosinophils % (Manual) 12.0 H Basophils % (Manual) 2.0 H Neutrophils # (Manual) 24 L Dohle Bodies Platelet Estimate RBC Morphology Not Reportable Hypochromasia 1+ H Anisocytosis 2+ H PT INR APTT Sodium 130 L Potassium 5.4 H Chloride 99 Carbon Dioxide 27 BUN 29 H Creatinine 0.83 Estimated GFR > 60.0 BUN/Creatinine Ratio 34.9 H Glucose 324 H Hemoglobin A1c Lactate 3.1 H Calcium 10.4 H Magnesium Total Bilirubin 1.1 AST 19 ALT 17 Alkaline Phosphatase 83 Total Creatine Kinase CK-MB (CK-2) CK-MB (CK-2) Rel Index Troponin I NT-Pro-B Natriuret Pep Total Protein 5.5 L Albumin 2.9 L Globulin 2.6 Albumin/Globulin Ratio 1.1 Lipase 26 Procalcitonin 0.16 TSH SARS-CoV-2 (PCR) 10/04/20 10/04/20 10/04/20 16:45 16:45 16:45 WBC RBC Hgb Hct MCV MCH MCHC RDW Plt Count Neut % (Auto) Lymph % (Auto) Luce % (Auto) Eos % (Auto) Baso % (Auto) Lymph # (Auto) Luce # (Auto) Baso # (Auto) Total Counted Seg Neutrophils % Band Neutrophils % Lymphocytes % (Manual) Atypical Lymphs % Monocytes % (Manual) Eosinophils % (Manual) Basophils % (Manual) Neutrophils # (Manual) Dohle Bodies Platelet Estimate RBC Morphology Hypochromasia Anisocytosis PT 14.4 H INR 1.3 APTT 27 Sodium Potassium Chloride Carbon Dioxide BUN Creatinine Estimated GFR BUN/Creatinine Ratio Glucose Hemoglobin A1c Lactate Calcium Magnesium 1.1 L Total Bilirubin AST ALT Alkaline Phosphatase Total Creatine Kinase < 20 L CK-MB (CK-2) TNP CK-MB (CK-2) Rel Index TNP Troponin I < 0.012 NT-Pro-B Natriuret Pep 1370 H Total Protein Albumin Globulin Albumin/Globulin Ratio Lipase Procalcitonin TSH SARS-CoV-2 (PCR) 10/04/20 10/04/20 10/04/20 16:45 16:45 17:16 WBC RBC Hgb Hct MCV MCH MCHC RDW Plt Count Neut % (Auto) Lymph % (Auto) Luce % (Auto) Eos % (Auto) Baso % (Auto) Lymph # (Auto) Luce # (Auto) Baso # (Auto) Total Counted Seg Neutrophils % Band Neutrophils % Lymphocytes % (Manual) Atypical Lymphs % Monocytes % (Manual) Eosinophils % (Manual) Basophils % (Manual) Neutrophils # (Manual) Dohle Bodies Platelet Estimate RBC Morphology Hypochromasia Anisocytosis PT INR APTT Sodium Potassium Chloride Carbon Dioxide BUN Creatinine Estimated GFR BUN/Creatinine Ratio Glucose Hemoglobin A1c 7.3 H Lactate Calcium Magnesium Total Bilirubin AST ALT Alkaline Phosphatase Total Creatine Kinase CK-MB (CK-2) CK-MB (CK-2) Rel Index Troponin I NT-Pro-B Natriuret Pep Total Protein Albumin Globulin Albumin/Globulin Ratio Lipase Procalcitonin TSH 2.56 SARS-CoV-2 (PCR) Negative 10/04/20 10/04/20 10/05/20 19:25 21:20 01:15 WBC RBC Hgb Hct MCV MCH MCHC RDW Plt Count Neut % (Auto) Lymph % (Auto) Luce % (Auto) Eos % (Auto) Baso % (Auto) Lymph # (Auto) Luce # (Auto) Baso # (Auto) Total Counted Seg Neutrophils % Band Neutrophils % Lymphocytes % (Manual) Atypical Lymphs % Monocytes % (Manual) Eosinophils % (Manual) Basophils % (Manual) Neutrophils # (Manual) Dohle Bodies Platelet Estimate RBC Morphology Hypochromasia Anisocytosis PT INR APTT Sodium 131 L Potassium 5.3 H Chloride 99 Carbon Dioxide 27 BUN 27 H Creatinine 0.83 Estimated GFR > 60.0 BUN/Creatinine Ratio 32.5 H Glucose 222 H D Hemoglobin A1c Lactate 3.0 H Calcium 10.2 Magnesium 1.7 Total Bilirubin 1.4 H AST 18 ALT 16 Alkaline Phosphatase 78 Total Creatine Kinase CK-MB (CK-2) CK-MB (CK-2) Rel Index Troponin I < 0.012 NT-Pro-B Natriuret Pep Total Protein 5.3 L Albumin 2.6 L Globulin 2.7 Albumin/Globulin Ratio 1.0 Lipase Procalcitonin TSH SARS-CoV-2 (PCR) 10/05/20 10/05/20 10/05/20 04:40 04:40 04:40 WBC 1.3 L* RBC 3.61 L Hgb 10.5 L Hct 30.6 L MCV 84.7 MCH 29.2 MCHC 34.5 RDW 22.1 H Plt Count 58 L Neut % (Auto) Not Reportable Lymph % (Auto) Not Reportable Luce % (Auto) Not Reportable Eos % (Auto) Not Reportable Baso % (Auto) Not Reportable Lymph # (Auto) Not Reportable Luce # (Auto) Not Reportable Baso # (Auto) Not Reportable Total Counted 100 Seg Neutrophils % 1.0 L Band Neutrophils % 1.0 L Lymphocytes % (Manual) 63.0 H Atypical Lymphs % 11.0 H Monocytes % (Manual) 7.0 Eosinophils % (Manual) 10.0 H Basophils % (Manual) 7.0 H Neutrophils # (Manual) 26 L Dohle Bodies 1+ H Platelet Estimate Decreased on smear RBC Morphology See below Hypochromasia Anisocytosis 2+ H PT 15.6 H INR 1.4 H APTT Sodium 131 L Potassium 5.2 H Chloride 100 Carbon Dioxide 26 BUN 27 H Creatinine 0.82 Estimated GFR > 60.0 BUN/Creatinine Ratio 32.9 H Glucose 206 H Hemoglobin A1c Lactate Calcium 10.0 Magnesium Total Bilirubin 1.3 AST 21 ALT 16 Alkaline Phosphatase 73 Total Creatine Kinase CK-MB (CK-2) CK-MB (CK-2) Rel Index Troponin I NT-Pro-B Natriuret Pep 970 H Total Protein 5.1 L Albumin 2.6 L Globulin 2.5 Albumin/Globulin Ratio 1.0 Lipase Procalcitonin TSH SARS-CoV-2 (PCR) 10/05/20 10/05/20 10/05/20 04:40 04:40 07:28 WBC RBC Hgb Hct MCV MCH MCHC RDW Plt Count Neut % (Auto) Lymph % (Auto) Luce % (Auto) Eos % (Auto) Baso % (Auto) Lymph # (Auto) Luce # (Auto) Baso # (Auto) Total Counted Seg Neutrophils % Band Neutrophils % Lymphocytes % (Manual) Atypical Lymphs % Monocytes % (Manual) Eosinophils % (Manual) Basophils % (Manual) Neutrophils # (Manual) Dohle Bodies Platelet Estimate RBC Morphology Hypochromasia Anisocytosis PT INR APTT Sodium Potassium Chloride Carbon Dioxide BUN Creatinine Estimated GFR BUN/Creatinine Ratio Glucose Hemoglobin A1c Lactate 2.6 H 2.0 Calcium Magnesium Total Bilirubin AST ALT Alkaline Phosphatase Total Creatine Kinase CK-MB (CK-2) CK-MB (CK-2) Rel Index Troponin I < 0.012 NT-Pro-B Natriuret Pep Total Protein Albumin Globulin Albumin/Globulin Ratio Lipase Procalcitonin TSH SARS-CoV-2 (PCR) [facility] Medical History (Updated 10/05/20 @ 00:23 by OBIE Lopez) Atrial fibrillation B-cell lymphoma Chronic back pain greater than 3 months duration Diabetes mellitus History of cirrhosis of liver History of hepatitis C Non-insulin dependent type 2 diabetes mellitus Surgical History Liver transplant recipient Family History (Updated 10/05/20 @ 00:24 by OBIE Lopez) Mother Atrial fibrillation and flutter Father Chronic headaches Social History household members: spouse and family Smoking Status: Former smoker alcohol intake: never Assessment & Plan Assessment & Plan narrative: 1. Atrial fibrillation with RVR, paroxysmal, with hypotension, acute on chronic, present on admission -tachycardic with rates in 110s-140s with hypotension with systolic BPs in 80s-90s -patient started on diltiazem drip, trying to transition off with oral diltiazem and digoxin load -patient declined to be anticoagulated for his atrial fibrillation due to bruising and bleeding previously, platelets low in 50s -tsh normal -currently no source of infection found -continue patients Lasix, Nadolol 2. Neutropenia -secondary to recent chemotherapy, says he last had chemo a few days ago -also with elevated lactate initially, that has no resolved, concern for possible infection -continue to follow up blood cultures cultures -has been empirically placed on levofloxacin 3. Hypomagnesemia, acute, present on admission -magnesium 1.1 -2 g Mag rider ordered repeat magnesium when finished infusing 4. Chronic low back pain exacerbation, per patient due to compression fracture -will hold patient's home morphine does and will provide IV 4 mg morphine q.4 hours as needed for pain management and control -will continue patient's of baclofen, finasteride, entecavir, prochlorperazine meleste, tacrolimus, tizanidine, levaquin 5. Scn-yoirbfr-uaryrgiba type 2 diabetes, acute on chronic, uncontrolled, present on admission -patient's blood sugar upon admit 324, A1c: 7.4% -will continue patient's metformin and 1000 mg b.i.d., will increase patient's Januvia 25 mg to 50 mg due to A1c. 6. B-cell lymphoma -currently getting chemotherapy at [facility] -will need follow up once discharged 7. Liver transplant, history -continue patient's tacrolimus -has history of esophageal varices, continue nadolol Code status: Full code Surrogate decision maker: Jerry Wyatt DVT/VTE prophylaxis: SCDs Estimated length of stay: Patient required hospitalization due to uncontrolled atrial fibrillation/flutter with RVR and hypotension, while managing his back pain exacerbation, his length of stay is expected to be less than 2 midnights. Patient to follow-up with outpatient Cardiology following discharged once the patient is stabilized
[2020-10-05] MEDS: MAG HYDROX/ALUM/SIMETH 30 ML UDC PO (17:19)
[2020-10-05] MEDS: MAGNESIUM HYDROXIDE 30 ML UDC PO (19:21)
[2020-10-05] MEDS: HEPARIN 5,000 UNIT/ML VIAL 5000 UNIT SUBCUT (21:05)
--- NOTE | 2020-10-05 22:46 | PC.NURSE ---
Patient is A/Ox4, on RA. Telemetry shows Afib with HR ranging from 90's-120's throughout shift. Received IV digoxin and 1L bolus in attempt to lower HR, was unable to give bedtime scheduled PO dilt due to BP of 89/57, MD aware. Patient received PRN morphine for back pain and milk of mag for complaint of constipation. No BM yet, but patient says he feels more comfortable. Patient took shower, noted that his scrotum is more swollen than usual, this was passed on to MD.
[2020-10-06] VITALS (11 sets, daily range): BP systolic 93–112; BP diastolic 50–73; PULSE 89–125; RESP 14–22; TEMP 35.9–36.4; O2SAT 94–99
[2020-10-06] MEDS: MORPHINE 4 MG/ML INJ IV ×2 (00:58→09:12)
[2020-10-06] MEDS: dilTIAZem 30 MG TABLET PO ×3 (02:00→14:43)
[2020-10-06] MEDS: DIGOXIN 500 MCG/2 ML AMPUL 250 MCG IV (05:07)
[2020-10-06 05:16] LABS: INR 1.5 (0.9-1.3); Prothrombin Time 16.9 SECONDS (10.1-12.7)
[2020-10-06 05:23] LABS: Hematocrit 27.9 % (41-53); Hemoglobin 9.5 g/dL (13.5-17.5); Mean Corpuscular HGB Conc 34.1 % (30-36); Mean Corpuscular Hemoglobin 29.2 PG (26-34); Mean Corpuscular Volume 85.5 fL (80-100); Platelet Count 57 X10^3/uL (150-400); Red Blood Cell Count 3.27 X10^6/uL (4.5-5.9); Red Cell Distribution Width 21.6 % (11.6-14.8)
[2020-10-06 05:25] LABS: BUN Creatinine Ratio 24.3 (6-22); Blood Urea Nitrogen 18 mg/dL (9-20); Calcium 9.6 mg/dL (8.4-10.2); Carbon Dioxide 26 mmol/L (22-32); Chloride 103 mmol/L (98-107); Estimated Glomerular Filt Rate > 60.0 mL/min (>60); Glucose 221 mg/dL (80-110); HEMOLYSIS < 15 (0-50); Sodium 133 mmol/L (137-145)
[2020-10-06 05:45] LABS: White Blood Cell Count 1.8 X10^3/uL (4.5-11.0)
[2020-10-06 05:46] LABS: Add Manual Diff / Slide Review YES
--- NOTE | 2020-10-06 05:47 | PC.NURSE ---
2330 - Patient alert and oriented x4 in room, standby assist to bathroom, no complaints of shortness of breath or chest pain. patient is requesting PRN muscle relaxer at this time. 0100 - PRN pain medication given for chronic back pain 0200 - PO dilt given, HR in the low 110s up to 130s at this time 0330 - HR starting to creep back up to 120s-130s 0415 - HR jumping up to 130s-140s, Called battery container tester aluminum x2 about patients HR, no response, let charge nurse know 0430 - Charge nurse called MD as well, no response, charge spoke with ED doctor who gave orders over the telephone 0445 - battery container tester aluminum MD called back, 250 IV digoxin x1 ordered to be given, canceled ED doctors orders 0545 - Magnesium level came back, called battery container tester aluminum no response at this time 0553 - Attempted again, spoke with MD who ordered 4 grams mag IV to be given
[2020-10-06] MEDS: MAGNESIUM SULFATE 4 GM/100 ML PIGGYBACK IV (06:13)
[2020-10-06 06:51] LABS: Anisocytosis 1+; Neutrophils Absolute Manual 432 /uL (3000-5900); Nucleated Red Blood Cells 1 #/Diff; Total Cells Counted 100
--- NOTE | 2020-10-06 07:58 | DI.US.S_ITS ---
PROCEDURE: US SCROTUM INDICATIONS: SCROTAL PAIN AND SWELLING TECHNIQUE: Real-time scanning was performed of the scrotum and testicles, with image documentation. Color and pulse Doppler interrogation was performed of both testicles. COMPARISON: [facility], , US SCROTUM, 07/03/2020, 16:19. FINDINGS: Right: Testicle is normal in size at 3.5 x 2.6 x 1.3 cm, and homogenous in echotexture. Epididymis is normal in overall size and morphology. A complicated right epididymal head cyst is seen with layering fluid-fluid level measuring 0.9 x 0.7 x 0.5 cm. Additional smaller anechoic simple cysts are noted in the epididymis. No hydrocele or varicoceles. Overlying scrotal skin is normal in thickness. Left: Testicle is normal in size at 4.1 x 2.5 x 1.6 cm, and homogeneous in echotexture. Epididymis is normal in overall size and morphology. Multiple simple cysts are seen in the epididymal head. No hydrocele or varicoceles. Overlying scrotal skin is normal in thickness. Doppler: Color and pulse Doppler demonstrate normal and symmetric arterial flow in both testicles. No left inguinal hernia is seen. IMPRESSION: 1. No sonographic signs of testicular torsion or epididymitis. No inguinal hernia. 2. Bilateral benign epididymal head cysts, the largest of which on the right measures 0.9 cm and contains layering proteinaceous or hemorrhagic debris. Dictated by: Kishor Arthur M.D. on 10/06/2020 at 8:10 Approved by: Kishor Arthur M.D. on 10/06/2020 at 8:21
[2020-10-06] MEDS: INSULIN LISPRO 100 UNIT/ML 3ML VIAL SUBCUT ×2 (09:08→12:14)
[2020-10-06] MEDS: polyethylene glycoL 3350 17 GM POWD.PACK PO (09:09)
[2020-10-06] MEDS: MAGNESIUM HYDROXIDE 30 ML UDC PO (09:09)
[2020-10-06] MEDS: FINASTERIDE 5 MG TABLET PO (09:11)
[2020-10-06] MEDS: ACYCLOVIR 400 MG TABLET PO (09:11)
[2020-10-06] MEDS: DOCUSATE 100 MG CAPSULE PO (09:11)
[2020-10-06] MEDS: METFORMIN HCL 500 MG TABLET 1000 MG PO (09:11)
[2020-10-06] MEDS: TACROLIMUS 0.5 MG CAPSULE PO (09:11)
[2020-10-06] MEDS: levoFLOXacin 250 MG TABLET 750 MG PO (09:11)
[2020-10-06] MEDS: SITAGLIPTIN 50 MG TABLET PO (09:11)
[2020-10-06] MEDS: ENTECAVIR 0.5 MG 0.5 EACH PO (10:47)
[2020-10-06] MEDS: HEPARIN 5,000 UNIT/ML VIAL 5000 UNIT SUBCUT (12:13)
[2020-10-06 13:48] LABS: Bacteria Urine None Seen; RBC Urine None Seen (0-5/HPF); WBC Urine None Seen (0-5/HPF)
[2020-10-06 13:51] LABS: Appearance Urine UA CLEAR; Bilirubin Urine UA NEGATIVE (NEGATIVE); Color Urine UA YELLOW; Glucose Urine UA 1+ g/dL (Negative); Ketones Urine UA NEGATIVE (NEGATIVE); Leukocyte Esterase Urine UA NEGATIVE (NEGATIVE); Nitrite Urine UA NEGATIVE (Negative); Occult Blood Urine UA NEGATIVE (Negative); Protein Urine UA NEGATIVE (Negative); Specific Gravity Urine UA 1.015 (1.000-1.035)
[2020-10-06 13:56] LABS: Culture Indicated Urine Cult Not Indicated; Urine Comments Microscopic Normal
--- NOTE | 2020-10-06 14:09 | PC.NURSE ---
Pt has maintained HR 80s-90s at rest, Afib. Pt able to get up and walk 2 laps around unit. Unfortunately, unable to assess HR at this time due to significant artifact. Once seated back to bed, pt's HR was noted to be 108 Afib. He denies any dizziness or lightheadedness, chest pain, pressure, or palpitations while walking. His only complaint is his back pain which he rates 5/10 on 0-10 pain scale. Called to hospitalist and reported above findings. Also reported UA results. Orders received for PO morphine.
[2020-10-06] MEDS: MORPHINE IR 15 MG TABLET PO (14:44)
--- NOTE | 2020-10-06 16:03 | PC.NURSE ---
Patient discharged home with . At discharge patient is A/Ox4, HR 92 afib on telemetry, on RA. Port hep flushed and de-accessed, pIV removed and telemetry removed. at bedside for discharge instructions. Patient educated on new medications, continuing home medications, a fib, and signs of stroke. Patient has a follow up appointment with PCP on Tuesday morning per , dayshift RN printed up progress reports and labs for patient to take to PCP and left a note with patient records to push images to Dr. Deal at [facility]. Patient and have no concerns or further questions about discharge.
--- NOTE | 2020-10-06 17:27 | PM.DS.1 ---
History of Present Illness History of Present Illness Chief complaint: WHOLE BODY PAIN Narrative: Per Tara Rai: Patient is a 70-year-old male Gage Wyatt. he present to the Ed today with a chief complaint of Chronic back pain exacerbation, he as been taking his morphine at home however today he feels like that the morphine is not working for him and he has increasing pain all over his body. He did take an extra dose of the morphine without any improvement. Upon exam in the ED patient was found to be in atrial fibrillation with RVR, with rate varying between 108-145, and hypotensive with BPs 83/58 to 92/68. Patient did have a history of atrial fibrillation and was taking nodolol for control, but was on on anticoag. The ED provided 1 dose of Cardizem which did not improve heart rate or resolve Afib. 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 Since that time he has subsequently developed lymphoma. Is being followed by the [facility]. Is currently undergoing chemotherapy. His last dose of chemotherapy was approximately 1 month ago. He is on prophylactic antibiotics for this. No chest pain. No shortness of breath. Does have some lightheadedness. No fevers. Jen pittman contacted and consulted with [facility] who was able to review patient's recent history and charts as well as review the case today and advise that the patient patient's cancer or liver transplant did not appear to be clinically relevant at this time and control the patient's atrial fibrillation and the patient be discharged on oral antibiotics and follow up with his oncologist. Upon admit patient hypotensive at 81/61, tachycardic in atrial fibrillation with a heart rate of 135, RR 16, and 98% on room air. The patient was started on a diltiazem drip and titrated up to 10mcg/min which cardioverted him, BP stabilized at 94/53, with a heart rate of 91. Patient is resting comfortably in the bed and was sound asleep. Patient denies any chest pain, shortness of breath, headache, changes in vision, numbness, tingling, nausea, vomiting, abdominal pain, fever, body aches, or chills. Patient states that his back pain is improved at a 5/10 and has no concerns at this time. Patient's vitals upon admit he has severe chronic leukopenia with WBC 1.2, HGB 11.7, HCT 34.1, platelets 60. Oncology reported these are in line with his baseline labs. Patient had mild hyponatremia at 1:30 a.m., BUN 29, glucose 324, and a potassium5.4, hypomagnesium 1.1., very mild hypercalcium 10.4, elevated lactate 3.0, and A1c 7.3. Patient's BNP was elevated slightly at 1370 though do not suspect this to be cardiac related, Albumin low at 2.9, patient's lipase and procalcitonin were within normal limits. Patient has a admit sofa score:3 but believe this is related to the patient's lymphoma. Patient's EKG in the ER demonstrated atrial flutter with a rate of [address] or T-wave changes. The patient's chest x-ray demonstrated no acute cardiopulmonary processes. Patient admitted for atrial fibrillation with RVR uncontrolled and chronic back pain exacerbation related to B-cell lymphoma. Discharge Providers Provider Date of admission: 10/04/20 20:23 Discharge Date: 10/06/20 Primary care physician: Vishal Fields MD Consults: 10/04/20 21:36 Consult to Dietitian, Adult Routine Comment: Reason For Exam: BMI Discharge provider: Montana Huffman MD Summary Hospital Course Discharge Diagnosis: 1. Atrial fibrillation with RVR 2. Pancytopenia secondary to chemotherapy 3. Hypomagnesemia 4. Chronic low back pain secondary to compression fracture and metastasis per 5. B-cell lymphoma 6. Type 2 Diabetes 7. Liver transplant history with history of esophageal varices Hospital Course: Mr. Wyatt came in with back pain, and was admitted for symptomatic atrial fibrillation with RVR. He had previously been on nadolol. He had pancytopenia with platelets in low 50s, history of esophageal varices, history of bleeding and bruising on anticoagulation and he declined anticoagulation at this time. He was initially placed on a cardizem drip, but this was transitioned and he was continued on oral diltiazem, but he needed multiple IV pushes of digoxin to get his rate better controlled. TSH unremarkable. ECHO showed a normal EF. He also complained of scrotal pain and swelling, but his exam was unremarkable, and his scrotal ultrasound showed no acute process. UA was negative. He also has significant chronic back pain from per patient and chronic lumbar compression fractures and metastasis. He was noted to be pancytopenic from chemotherapy. He had no fevers and no localizing symptoms for infection, his cancer team requested placement on antibiotics and he will be given a 5 day course of levofloxacin. On day of discharge patient was requesting to be discharged home, he will be discharge as his heart rate is improved to the 90s, still in atrial fibrillation. However he was told he needs close follow up with his PCP, cardiology, and oncologist for his multiple medical issues. Exam Vital Signs (past 8 hours): - 10/06/20 11:00 10/06/20 13:00 10/06/20 15:30 Temperature 96.7 F L 96.8 F L Pulse Rate 94 H 89 Respiratory Rate 14 16 Blood Pressure 102/56 L 93/50 L Pulse Oximetry 96 98 94 Oxygen Delivery Method Room Air Oxygen Flow Rate 0 Narrative Exam Narrative: General: no acute distress Lungs: clear bilaterally with no wheezes, rhonchi, rales Cardio: Irregularly irregular Abdomen: Soft nontender, negative for organomegaly, or masses. normal bowel sounds. Musculoskeletal: Muscle strength and tone are equal within normal limits Skin: Warm dry and intact without rashes Neuro: Alert and orientated x3, strength is +5/5 in all extremities, sensation to touch intact, no gross deficits noted of cranial nerves. Objective Labs Result Diagrams: 10/06/20 05:00 10/06/20 05:00 Labs: Laboratory Results - last 24 hr 10/06/20 10/06/20 10/06/20 05:00 05:00 05:00 WBC 1.8 L* RBC 3.27 L Hgb 9.5 L Hct 27.9 L MCV 85.5 MCH 29.2 MCHC 34.1 RDW 21.6 H Plt Count 57 L Neut % (Auto) Not Reportable Lymph % (Auto) Not Reportable [place] % (Auto) Not Reportable Eos % (Auto) Not Reportable Baso % (Auto) Not Reportable Lymph # (Auto) Not Reportable [place] # (Auto) Not Reportable Baso # (Auto) Not Reportable Total Counted 100 Seg Neutrophils % 22.0 L D Band Neutrophils % 2.0 L Lymphocytes % (Manual) 56.0 H Atypical Lymphs % 3.0 H Monocytes % (Manual) 7.0 Eosinophils % (Manual) 10.0 H Neutrophils # (Manual) 432 L Nucleated RBCs 1 H RBC Morphology Not Reportable Anisocytosis 1+ H PT 16.9 H INR 1.5 H Sodium Potassium Chloride Carbon Dioxide BUN Creatinine Estimated GFR BUN/Creatinine Ratio Glucose Calcium Magnesium 1.0 L Urine Color Urine Appearance Urine pH Ur Specific [place] Urine Protein Urine Glucose (UA) Urine Ketones Urine Occult Blood Urine Nitrate Urine Bilirubin Urine Urobilinogen Ur Leukocyte Esterase Urine RBC Urine WBC Urine Bacteria Ur Culture Indicated? Micro UA Comment 10/06/20 10/06/20 05:00 13:40 WBC RBC Hgb Hct MCV MCH MCHC RDW Plt Count Neut % (Auto) Lymph % (Auto) [place] % (Auto) Eos % (Auto) Baso % (Auto) Lymph # (Auto) [place] # (Auto) Baso # (Auto) Total Counted Seg Neutrophils % Band Neutrophils % Lymphocytes % (Manual) Atypical Lymphs % Monocytes % (Manual) Eosinophils % (Manual) Neutrophils # (Manual) Nucleated RBCs RBC Morphology Anisocytosis PT INR Sodium 133 L Potassium 5.0 Chloride 103 Carbon Dioxide 26 BUN 18 Creatinine 0.74 Estimated GFR > 60.0 BUN/Creatinine Ratio 24.3 H Glucose 221 H Calcium 9.6 Magnesium Urine Color Yellow Urine Appearance Clear Urine pH 5.0 Ur Specific [place] 1.015 Urine Protein Negative Urine Glucose (UA) 1+ H Urine Ketones Negative Urine Occult Blood Negative Urine Nitrate Negative Urine Bilirubin Negative Urine Urobilinogen 1.0 Ur Leukocyte Esterase Negative Urine RBC None seen Urine WBC None seen Urine Bacteria None seen Ur Culture Indicated? Cult not indicated Micro UA Comment Microscopic normal [facility] Medical History (Updated 10/05/20 @ 00:23 by OBIE Lopez) Atrial fibrillation B-cell lymphoma Chronic back pain greater than 3 months duration Diabetes mellitus History of cirrhosis of liver History of hepatitis C Non-insulin dependent type 2 diabetes mellitus Surgical History Liver transplant recipient Family History (Updated 10/05/20 @ 00:24 by OBIE Lopez) Mother Atrial fibrillation and flutter Father Chronic headaches Social History household members: spouse and family Smoking Status: Former smoker alcohol intake: never Discharge Plan Discharge Plan Patient Disposition: Home Provider Discharge Comment: Mr. Wyatt was admitted with palpitations and found to have atrial fibrillation with a fast heart rate. He was started on two new medications digoxin and diltiazem that helped improve his heart rate. He was recommended to have antibiotics per his cancer center due to his low blood counts. He will be discharged with three more days of antibiotics. He had an ultrasound of his heart that showed he still had good strength and functioning of his heart. He is having quite significant back pain from his cancer. He will need to follow closely with his oncologist and PCP for this. Discharge orders & Medications Prescriptions: New levofloxacin 250 mg Tablet 750 mg PO DAILY Qty: 9 RF: 0 docusate sodium [DOK] 100 mg Capsule 100 mg PO BID Qty: 30 RF: 0 digoxin 125 mcg (0.125 mg) tablet 125 mcg PO DAILY Qty: 30 RF: 0 diltiazem HCl 120 mg capsule,extended release 24hr 120 mg PO DAILY Qty: 30 RF: 0 Continued metformin 500 mg tablet 1,000 mg PO BID RF: 0 prochlorperazine maleate 10 mg tablet 10 mg PO Q6HR PRN (Reason: nausea/vomiting) RF: 0 acyclovir 400 mg tablet 400 mg PO BID RF: 0 baclofen 10 mg tablet 10 mg PO TID PRN (Reason: muscle spasms) RF: 0 nadolol 40 mg tablet 40 mg PO DAILY RF: 0 furosemide 20 mg tablet 40 mg PO QAM RF: 0 morphine 15 mg tablet 15 mg PO Q6HR PRN (Reason: Pain (Scale Score 7-10)) RF: 0 finasteride 5 mg tablet 5 mg PO DAILY RF: 0 tacrolimus 0.5 mg capsule 0.5 mg PO BID RF: 0 tizanidine 2 mg capsule 2 mg PO TID PRN (Reason: muscle spasms) RF: 0 entecavir 0.5 mg tablet 0.5 mg PO DAILY RF: 0 Januvia 25 mg tablet 25 mg PO DAILY RF: 0 acetaminophen-codeine 300-30 mg tablet 1 tab PO Q4-6H PRN (Reason: pain) Qty: 20 RF: 0 Discontinued levofloxacin [Levaquin] 750 MG tablet 750 mg PO QDAY Qty: 5 RF: 0 Follow up/Referrals: [facility] [Provider Group] (recent admission for afib rvr, had pancytopenia from chemotherapy) [facility] [Provider Group] (follow up for afib with rvr, started on diltiazem, digoxin, not started AC due to thrombocytopenia and patient decision) Vishal Fields MD [Primary Care Provider] - Diet/Activity/Treatments Diet: Regular Visit Report/Discharge Packet Instructions: DI for Heart Failure, DI for Atrial Fibrillation, DI for Prescription Opioid Use Discharge Data Primary Care Provider: Vishal Fields Quality MIPS - DC The patient has current or prior documentation of left ventricular ejection fraction (LVEF) less than 40%, or moderate or severely depressed left ventricular systolic function.: No
== END 2020-10-06 16:05 | disposition home or self-care (01) | DRG 308 ==
LOC: ED 20:05 → AC 20:25 → ICU 20:30
PROVIDERS: Internal Medicine; Admitting Provider Nurse Practitioner Family; Emergency Provider Emergency Medicine; PCP Family Medicine; Referring Provider Emergency Medicine; Visit Provider Nurse Practitioner Family
DX: I48.0 Paroxysmal atrial fibrillation (principal); D61.810 Antineoplastic chemotherapy induced pancytopenia; C85.80 Other specified types of non-Hodgkin lymphoma, unspecified site; Z94.4 Liver transplant status; E83.42 Hypomagnesemia; I95.9 Hypotension, unspecified; M54.5 Low back pain; E11.9 Type 2 diabetes mellitus without complications; Z79.84 Long term (current) use of oral hypoglycemic drugs; Z20.822 Contact with and (suspected) exposure to COVID-19; Z87.891 Personal history of nicotine dependence
CPT/HCPCS: 36415; 71045; 76870; 80048; 80053; 81001; 81003; 82550; 82962; 83036; 83605; 83690; 83735; 83880; 84145; 84443; 84484; 85007; 85025; 85610; 85730; 87040; 87635; 93005; 93010; 93306; 94760; 96361; 96365; 96375; 99284; C9803; J0692; J1160; J1170; J1642; J1644; J1815; J2270; J3475; J7507

== ENCOUNTER 2020-10-10 09:24 | Emergency (ER) | payer MEDICARE, OTHER, SELFPAY ==
[2020-10-04 21:00] VITALS: BMI 28.8
--- NOTE | 2020-10-10 | DI.CT.S_ITS ---
PROCEDURE: CT CERVICAL SPINE WO CON INDICATIONS: FALLING WITH LYMPHOMA TECHNIQUE: Noncontrast 3 mm thick sections acquired from the skull base to the T4 level. Sagittal and coronal reformats were then constructed. For radiation dose reduction, the following was used: automated exposure control, adjustment of mA and/or kV according to patient size. COMPARISON: [facility], CT, CT CHEST ABD PEL W CON, 09/11/2018, 11:22. [facility], CT, CT LUMBAR SPINE WO CON, 10/10/2020, 11:53. [facility], CT, CT THORACIC SPINE WO CON, 10/10/2020, 11:53. [facility], CT, CT HEAD/BRAIN WO CON, 10/10/2020, 11:53. FINDINGS: Image quality: Excellent. Bones: There is minimal central compression deformity seen of C5, with mild lucency seen within this vertebral body. There is 20-30% loss of height centrally at T2, also with lucency seen of this vertebral body. Visualized superior ribs are intact. Focal degenerative change is seen involving the C1-C2 interface anteriorly. There is [id number] C6-C7 disc space narrowing with associated endplate irregularity and partially bridging anterior osteophytes. Soft tissues: Prevertebral soft tissues are normal in thickness. No paravertebral hematomas. No apical pneumothoraces. A right-sided chest port is partially seen. IMPRESSION: Pathologic fracture of T2, with potential minimal pathologic fracture of C5. Focal degenerative change is seen at the C1-C2 interface anteriorly and at C6-C7. No frankly enlarged lymph nodes are seen. Incidental note is made of: Right-sided chest port Dictated by: Garrison Cedillo M.D. on 10/10/2020 at 11:18 Approved by: Garrison Cedillo M.D. on 10/10/2020 at 11:23
[2020-10-10 09:30] VITALS: BP 127/72; PULSE 83; RESP 15; TEMP 36.6; O2SAT 97; BMI 29.6
--- NOTE | 2020-10-10 09:52 | ED_ITS ---
HPI - Fall General Chief Complaint: Fall Stated Complaint: fall yesterday Time Seen by Provider: 10/10/20 09:52 Source: patient Mode of arrival: Wheelchair History of Present Illness HPI Narrative: 70-year-old Male who presents with history of lymphoma recently diagnosed with new onset atrial fibrillation with RVR. He was released from the hospital on 10/06/2020. Said that he has had increased dizziness and falls he fell yesterday. He has previously had pancytopenia. Discharged home on new medications digoxin and diltiazem to help with his heart rate. He is currently rate controlled with9 heart rate in the 60s to 70s. He has no chest pains or palpitations. He is presenting today with back pain. He says he has known metastatic cancer. And his pain is out of control. Related Data Home Medications Medication Instructions Recorded Confirmed acyclovir 400 mg tablet 400 mg PO BID 10/04/20 10/04/20 baclofen 10 mg tablet 10 mg PO TID PRN 10/04/20 10/04/20 entecavir 0.5 mg tablet 0.5 mg PO DAILY 10/04/20 10/04/20 finasteride 5 mg tablet 5 mg PO DAILY 10/04/20 10/04/20 furosemide 20 mg tablet 40 mg PO QAM 10/04/20 10/04/20 metformin 500 mg tablet 1,000 mg PO BID 10/04/20 10/04/20 morphine 15 mg immediate release 15 mg PO Q6HR PRN 10/04/20 10/04/20 tablet nadolol 40 mg tablet 40 mg PO DAILY 10/04/20 10/04/20 prochlorperazine maleate 10 mg 10 mg PO Q6HR PRN 10/04/20 10/04/20 tablet sitagliptin 25 mg tablet (Januvia) 25 mg PO DAILY 10/04/20 10/04/20 tacrolimus 0.5 mg capsule, 0.5 mg PO BID 10/04/20 10/04/20 immediate-release tizanidine 2 mg capsule 2 mg PO TID PRN 10/04/20 10/04/20 Previous Rx's Medication Instructions Recorded acetaminophen 300 mg-codeine 30 mg 1 tab PO Q4-6H PRN #20 tab 07/03/20 tablet digoxin 125 mcg (0.125 mg) tablet 125 mcg PO DAILY #30 tab 10/06/20 diltiazem HCl 120 mg 120 mg PO DAILY #30 cap 10/06/20 capsule,extended release 24 hr docusate sodium 100 mg capsule 100 mg PO BID #30 cap 10/06/20 (DOK) levofloxacin 250 mg tablet 750 mg PO DAILY #9 tab 10/06/20 morphine 10 mg/5 mL oral solution 10 mg PO Q6H PRN #100 ml 10/10/20 morphine 20 mg/5 mL (4 mg/mL) oral 20 mg PO Q4H PRN #100 ml 10/10/20 solution Allergies Allergy/AdvReac Type Severity Reaction Status Date / Time hydrocodone [HYDROCODONE] Allergy Severe SEVERE Verified 10/10/20 09:37 ITCHING tetracycline [TETRACYCLINE] Allergy Unknown Verified 10/10/20 09:37 ampicillin Allergy Verified 10/10/20 09:37 bee venom protein (honey bee) Allergy Verified 10/10/20 09:37 oxycodone [OXYCODONE] AdvReac Severe SEVERE Verified 10/10/20 09:37 ITCHING Review of Systems Constitutional Constitutional: Denies chills, Denies fatigue, Denies fever(s), Denies frequent falls, Denies lethargy and Denies weakness Eyes Eyes: Denies change in vision, Denies eye discharge, Denies irritation and D enies loss of vision ENT Ears, Nose, Mouth, and Throat: Denies change in voice, Denies dizziness, Denies neck pain, Denies sore throat and Denies throat swelling Cardiovascular Cardiovascular: Reports irregular heart rhythm, Denies dyspnea and Denies dyspnea on exertion Respiratory Respiratory: Denies cough, Denies dyspnea, Denies dyspnea on exertion and Denies wheezing Gastrointestinal Gastrointestinal: Denies abdominal pain, Denies change in bowel habits, Denies diarrhea, Denies nausea and Denies vomiting Musculoskeletal Musculoskeletal: Denies neck pain and Denies numbness Integumentary/Breasts Skin/Breast: Denies pruritus, Denies erythema, Denies rash and Denies wounds Neurologic Neurologic: Denies behavioral changes, Denies confusion, Denies dizziness, Denies frequent falls, Denies loss of vision, Denies numbness and Denies weakness Psychiatric Psychiatric: Denies anxiety, Denies behavioral changes, Denies confusion, Denies depression, Denies homicidal ideation and Denies suicidal ideation Endocrine Endocrine: Denies fatigue and Denies flushing Hematologic/Lymphatic Hematologic/Lymphatic: Denies easy bruising Allergic/Immunologic Allergic/Immunologic: Denies urticaria, Denies throat swelling and Denies wheezing Patient History Medical History (Updated 10/10/20 @ 13:44 by Kristy Herrmann DO) Atrial fibrillation B-cell lymphoma Chronic back pain greater than 3 months duration Diabetes mellitus History of cirrhosis of liver History of hepatitis C Non-insulin dependent type 2 diabetes mellitus Surgical History Liver transplant recipient Family History (Updated 10/05/20 @ 00:24 by OBIE Lopez) Mother Atrial fibrillation and flutter Father Chronic headaches Social History household members: spouse and family Smoking Status: Former smoker alcohol intake: never Smoking Status: Former smoker alcohol intake frequency: holidays/special occasions only Substance Use Type: does not use Exam Initial Vital Signs Initial Vital Signs: Vital Signs Temperature 97.8 F 10/10/20 09:30 Pulse Rate 83 10/10/20 09:30 Respiratory Rate 15 10/10/20 09:30 Blood Pressure 127/72 10/10/20 09:30 Pulse Oximetry 97 10/10/20 09:30 GENERAL: [Well-appearing, well-nourished] and in [no acute] distress. HEENT: Head atraumatic,EOMI, pupils reactive, face symmetric, [moist] mucous membranes CARDIOVASCULAR: Regular rate and rhythm without murmurs, rubs or gallops. RESPIRATORY: Breath sounds equal bilaterally, no wheezes rales or rhonchi. ABDOMEN: Soft, nontender. Normoactive bowel sounds all 4 quadrants. No guarding or rebound. BACK: Midline tenderness lumbar no cervical tenderness EXTREMITIES: Normal range of motion, no clubbing or edema. Neurovascularly intact NEUROLOGICAL: Alert and oriented x4.Normal gait and speech. SKIN: Warm, dry, no laceration, no petechiae, no rashes or lesions. Course Orders Ordered: ED Orders 10/10/20 11:42 CT head/brain wo con Stat CT lumbar spine wo con Stat CT thoracic spine wo con Stat Discontinued Medications Aspirin (Aspirin 81 Mg Chew Tab) 324 mg PO NOW ONE Stop: 10/10/20 09:53 Last Admin: 10/10/20 09:55 Dose: Not Given Documented by: REINIER Hydromorphone HCl (Hydromorphone 1 Mg Inj) 1 mg IV NOW ONE Stop: 10/10/20 11:43 Last Admin: 10/10/20 12:06 Dose: 1 mg Documented by: BETO Vital Signs Vital signs: Vital Signs - 8 hr 10/10/20 13:54 10/10/20 13:55 Pulse Rate 64 68 Blood Pressure 103/66 Pulse Oximetry 99 98 MDM - Fall Lab Data Result diagrams: 10/10/20 10:11 10/10/20 10:11 Labs: Lab Results 10/10/20 10/10/20 Range/Units 10:11 10:11 WBC 4.7 (4.5-11.0) X10^3/uL RBC 3.64 L (4.5-5.9) X10^6/uL Hgb 10.9 L (13.5-17.5) g/dL Hct 32.1 L (41-53) % MCV 88.2 (80-100) fL MCH 29.9 (26-34) PG MCHC 33.9 (30-36) % RDW 23.1 H (11.6-14.8) % Plt Count 92 L (150-400) X10^3/uL Neut % (Auto) Not Reportable Lymph % (Auto) Not Reportable [place] % (Auto) Not Reportable Eos % (Auto) Not Reportable Baso % (Auto) Not Reportable Lymph # (Auto) Not Reportable [place] # (Auto) Not Reportable Baso # (Auto) Not Reportable Total Counted 100 Seg Neutrophils % 51.0 (38-70) % Band Neutrophils % 20.0 H (3-7) % Lymphocytes % (Manual) 17.0 L (25-45) % Monocytes % (Manual) 10.0 (2-11) % Basophils % (Manual) 1.0 (0-1) % Metamyelocytes % 1.0 H (-0) % Neutrophils # (Manual) 3337 (0500-8366) /uL Nucleated RBCs 4 H ( - 0) #/Diff RBC Morphology Not Reportable Polychromasia 2+ H Anisocytosis 3+ H D Sodium 137 (137-145) mmol/L Potassium 4.5 (3.4-5.1) mmol/L Chloride 106 (98-107) mmol/L Carbon Dioxide 28 (22-32) mmol/L BUN 15 (9-20) mg/dL Creatinine 0.83 (0.66-1.25) mg/dL Estimated GFR > 60.0 (>60) mL/min BUN/Creatinine Ratio 18.1 (6-22) Glucose 237 H (80-110) mg/dL Calcium 9.9 (8.4-10.2) mg/dL Total Bilirubin 1.0 (0.2-1.3) mg/dL AST 28 (17-59) IU/L ALT 15 (<50) IU/L Alkaline Phosphatase 93 (38-126) U/L Total Creatine Kinase < 20 L (55-170) U/L CK-MB (CK-2) TNP CK-MB (CK-2) Rel Index TNP Troponin I < 0.012 (0.01-0.034) ng/mL Total Protein 5.3 L (6.3-8.2) g/dL Albumin 2.8 L (3.5-5.0) g/dL Globulin 2.5 (1.7-4.1) g/dL Albumin/Globulin Ratio 1.1 (1.0-2.8) Lipase 32 (23-300) U/L Imaging Data CT scan - head: Radiologist's Impression: PROCEDURE: CT HEAD/BRAIN WO CON INDICATIONS: falling with lymphoma TECHNIQUE: Noncontrast 4.5 mm thick angled axial sections acquired from the foramen magnum to the vertex, with coronal and sagittal reformats. For radiation dose reduction, the following was used: automated exposure control, adjustment of mA and/or kV according to patient size. COMPARISON: None. FINDINGS: Image quality: Mild streak artifact can be seen through the skull base. CSF spaces: Basal cisterns are patent. No extra-axial fluid collections. The ventricles are symmetric in size and shape. Brain: No intracranial bleeds or masses. There is cerebral volume loss for age, with resultant ventricular and sulcal prominence. There are periventricular and deep white matter chronic small vessel ischemic changes. There is intracranial internal carotid artery atherosclerosis. Skull and face: Calvarium and visualized facial bones appear intact, without suspicious lesions. Sinuses: Visualized sinuses and mastoids are clear. IMPRESSION: No acute intracranial hemorrhage is seen. No acute intracranial process is seen. If it would be helpful for clinical management decision making, please consider a dedicated brain MRI (without and with contrast) for further evaluation (assuming that there is no contraindication). Dictated by: Garrison Cedillo M.D. on 10/10/2020 at 11:11 Approved by: Garrison Cedillo M.D. on 10/10/2020 at 11:12 Chest x-ray: Radiologist's Impression: PROCEDURE: XR CHEST 1V INDICATIONS: weaknes and fall TECHNIQUE: One view of the chest was acquired. COMPARISON: [facility], CR, XR CHEST 1V, 10/04/2020, 16:20. FINDINGS: Surgical changes and devices: Right chest wall port catheter, tip of which is at the cavoatrial junction. Lungs and pleura: Lungs are clear. No pleural effusions or pneumothorax. Mediastinum: Mediastinal contours appear normal. Heart size is normal. Bones and chest wall: No suspicious bony lesions. Overlying soft tissues appear unremarkable. IMPRESSION: No acute process. Dictated by: Mando Campos M.D. on 10/10/2020 at 10:11 CT Lumbar: Radiologist's Impression: PROCEDURE: CT LUMBAR SPINE WO CON INDICATIONS: Metastatic cancer TECHNIQUE: Noncontrast 3 mm thick sections acquired from the T12 level to the sacrum. Sagittal and coronal reformats were constructed. For radiation dose reduction, the following was used: automated exposure control. COMPARISON: [facility], CT, CT CHEST ABD PEL W CON, 09/11/2018, 11:22. [facility], CT, CT CERVICAL SPINE WO CON, 10/10/2020, 11:53. [facility], CT, CT THORACIC SPINE WO CON, 10/10/2020, 11:53. [facility], CT, CT HEAD/BRAIN WO CON, 10/10/2020, 11:53. FINDINGS: Image quality: Excellent. Bones: At the L1 level, there is a pathologic fracture seen, with 70% loss of height centrally. There is posterior displacement of fracture fragments of 6-7 mm. There is associated moderate to severe central canal narrowing at this level. At L2, there is 30% loss of height centrally and on the right, with a vertically oriented fracture cleft. There is abnormal lucency seen within each vertebral body, although worst at T11, L1, and L2. At the L4-L5 level, there is moderate to severe disc space narrowing seen, with partial bony bridging and post erected endplate osteophytes. There is moderate central canal narrowing seen. Milder degenerative changes are seen elsewhere. Soft tissues: No retroperitoneal masses or hematomas. Visualized aorta is normal in caliber. IMPRESSION: L1 pathologic fracture, with 70% loss of height centrally and 6-7 mm posterior displacement of fracture fragments. L2 pathologic fracture, with 30% loss of height on the right side. Abnormal lucency is seen within vertebral bodies, which is worst at T11, T12, and L1, although seen within each vertebral body. These pathologic bony changes are new compared to 2019. Stable L4-L5 focal degenerative change. Dictated by: Garrison Cedillo M.D. on 10/10/2020 at 11:23 Approved by: Garrison Cedillo M.D. on 10/10/2020 at 11:26 CT Thoracic: Radiologist's Impression: PROCEDURE: CT THORACIC SPINE WO CON INDICATIONS: Metastatic cancer TECHNIQUE: Noncontrast 3 mm thick sections acquired through the region of interest in the thoracic spine. Sagittal and coronal reformats were then constructed. For radiation dose reduction, the following was used: automated exposure control. COMPARISON: [facility], CT, CT CERVICAL SPINE WO CON, 10/10/2020, 11:53. [facility], CT, CT LUMBAR SPINE WO CON, 10/10/2020, 11:53. [facility], CT, CT HEAD/BRAIN WO CON, 10/10/2020, 11:53. [facility], CT, CT CHEST ABD PEL W CON, 09/11/2018, 11:22. FINDINGS: Image quality: Excellent. Bones: Areas of abnormal lucency can be seen throughout the thoracic spine. There is a pathologic fracture seen at T2, with 20-30% loss of height centrally. There is also a pathological fracture seen involving L1, with 70% loss of height centrally and 6-7 mm posterior displacement of fracture fragments. At L2, there is a palatal logic fracture seen, with 30% loss of height on the right side. These pathologic bony changes are new compared to 2019. Degenerative changes are seen throughout. Within the T1 spinous process, there is a benign-appearing bone island, as on series 6 image 22. Soft tissues: No paravertebral masses or hematomas. Visualized posteromedial lungs appear clear. IMPRESSION: Areas of bony lucency can be seen throughout, which are consistent with the given history. Pathologic fractures can be seen at T2, L1, and L2. Dictated by: Garrison Cedillo M.D. on 10/10/2020 at 11:27 ECG Data Interpretation: Patient fibrillation rate [address] changes or T-wave inversions MDM Narrative Medical decision making narrative: Patient is complaining of generalized weakness and pain mostly in his back. CT confirms his pathologic fractures in his thoracic and lumbar spine no significantly at L1. He has no neurologic deficits no incontinence or lower extremity weakness. He is actually on morphine for pain control. Hydrocodone and oxycodone cause severe itching and he has reactions to them. He currently is on 15 mg immediate release as needed for pain. states that they recently saw the primary care provider for them to increase to 30 mg a however they were unsure how frequently they could do that. I talked with the pharmacist with a fill the prescription that and she does confirm the prescriptions is 30 mg and will be released every 4 hours if needed. They are not taking this I discussed within to take medication as directed and will likely help. I did not write them for new medication, they have a prescription waiting at the pharmacy to be picked. Discharge Plan Departure Patient Disposition: Home Clinical Impression: Pathologic compression fracture of lumbar vertebra Qualifiers: Encounter type: initial encounter Qualified Code(s): M48.56XA - Collapsed vertebra, not elsewhere classified, lumbar region, initial encounter for fracture Instructions: Vertebral Compression Fracture Activity Restrictions/Additional Instructions: *You have been diagnosed with a pathologic compression fractures *What to do: At this time unfortunately your cancer has caused fractures in your spine. *Continue to take medications as directed--> SENT TO [facility] Morphine 20 mg every 6 hours if needed for pain *Follow up with your primary care provider in 2-3 days Follow-up with oncology next week as scheduled *Return to ER if you should have increasing leg weakness, change in bowel or bladder habits, fever, increasing falls, increasing girth [or] any new, worsening or concerning symptoms CONTROLLED SUBSTANCE DISCHARGE (Narcotoic/benzodiazepine/Flexeril/Phenergan) 1. You have been prescribed narcotic medications, it does have acetaminophen/Tylenol/paracetamol in it, DO NOT TAKE MORE THAN 4,00mg in 24 hours of Tylenol. TRAMADOL DOES NOT CONTAIN TYLENOL 2. Please understand that we cannot provide further refills of narcotics, benzodiazepines or controlled substances through the ED and her pain management will need to be through your provider. 3. While on these medications you cannot drive or operate heavy machinery. 4. You cannot sign legal documents or perform any duties such as this. 5. As long as you're taking opiate pain medications he should also be taking a stool softener such as Colace, Dulcolax, MiraLAX or prune juice, to help avoid constipation. Prescriptions: New morphine 10 mg/5 mL solution 10 mg PO Q6H PRN (Reason: pain (scale score 4-6)) Qty: 100 RF: 0 morphine 20 mg/5 mL (4 mg/mL) solution 20 mg PO Q4H PRN (Reason: pain) Qty: 100 RF: 0 No Action metformin 500 mg tablet 1,000 mg PO BID RF: 0 prochlorperazine maleate 10 mg tablet 10 mg PO Q6HR PRN (Reason: nausea/vomiting) RF: 0 acyclovir 400 mg tablet 400 mg PO BID RF: 0 baclofen 10 mg tablet 10 mg PO TID PRN (Reason: muscle spasms) RF: 0 nadolol 40 mg tablet 40 mg PO DAILY RF: 0 furosemide 20 mg tablet 40 mg PO QAM RF: 0 morphine 15 mg tablet 15 mg PO Q6HR PRN (Reason: Pain (Scale Score 7-10)) RF: 0 finasteride 5 mg tablet 5 mg PO DAILY RF: 0 tacrolimus 0.5 mg capsule 0.5 mg PO BID RF: 0 tizanidine 2 mg capsule 2 mg PO TID PRN (Reason: muscle spasms) RF: 0 entecavir 0.5 mg tablet 0.5 mg PO DAILY RF: 0 Januvia 25 mg tablet 25 mg PO DAILY RF: 0 levofloxacin 250 mg Tablet 750 mg PO DAILY Qty: 9 RF: 0 docusate sodium [DOK] 100 mg Capsule 100 mg PO BID Qty: 30 RF: 0 digoxin 125 mcg (0.125 mg) tablet 125 mcg PO DAILY Qty: 30 RF: 0 diltiazem HCl 120 mg capsule,extended release 24hr 120 mg PO DAILY Qty: 30 RF: 0 acetaminophen-codeine 300-30 mg tablet 1 tab PO Q4-6H PRN (Reason: pain) Qty: 20 RF: 0 Referrals: Vishal Fields MD [Primary Care Provider] -
[2020-10-10 10:21] LABS: Hematocrit 32.1 % (41-53); Hemoglobin 10.9 g/dL (13.5-17.5); Mean Corpuscular HGB Conc 33.9 % (30-36); Mean Corpuscular Hemoglobin 29.9 PG (26-34); Mean Corpuscular Volume 88.2 fL (80-100); Platelet Count 92 X10^3/uL (150-400); Red Blood Cell Count 3.64 X10^6/uL (4.5-5.9); Red Cell Distribution Width 23.1 % (11.6-14.8); White Blood Cell Count 4.7 X10^3/uL (4.5-11.0)
[2020-10-10 10:22] LABS: Add Manual Diff / Slide Review YES
[2020-10-10 10:31] VITALS: BP 127/72; PULSE 75; RESP 70; O2SAT 99
[2020-10-10 10:32] LABS: Alanine Aminotransferase 15 IU/L (<50); Albumin 2.8 g/dL (3.5-5.0); Albumin Globulin Ratio 1.1 (1.0-2.8); Alkaline Phosphatase 93 U/L (38-126); Aspartate Aminotransferase 28 IU/L (17-59); BUN Creatinine Ratio 18.1 (6-22); Blood Urea Nitrogen 15 mg/dL (9-20); Calcium 9.9 mg/dL (8.4-10.2); Carbon Dioxide 28 mmol/L (22-32); Chloride 106 mmol/L (98-107); Creatine Kinase < 20 U/L (55-170); Estimated Glomerular Filt Rate > 60.0 mL/min (>60); Globulin 2.5 g/dL (1.7-4.1); Glucose 237 mg/dL (80-110); HEMOLYSIS < 15 (0-50); Lipase 32 U/L (23-300); Potassium 4.5 mmol/L (3.4-5.1); Sodium 137 mmol/L (137-145); Total Protein 5.3 g/dL (6.3-8.2)
[2020-10-10 10:43] LABS: Troponin I < 0.012 ng/mL (0.01-0.034)
[2020-10-10 10:47] LABS: Neutrophils Absolute Manual 3337 /uL (3000-5900); Nucleated Red Blood Cells 4 #/Diff; Total Cells Counted 100
[2020-10-10 10:48] LABS: Anisocytosis 3+; Polychromasia 2+
[2020-10-10 11:27] VITALS: BP 132/84; PULSE 16; RESP 99; O2SAT 99
--- NOTE | 2020-10-10 11:42 | DI.CT.S_ITS ---
PROCEDURE: CT LUMBAR SPINE WO CON INDICATIONS: Metastatic cancer TECHNIQUE: Noncontrast 3 mm thick sections acquired from the T12 level to the sacrum. Sagittal and coronal reformats were constructed. For radiation dose reduction, the following was used: automated exposure control. COMPARISON: [facility], CT, CT CHEST ABD PEL W CON, 09/11/2018, 11:22. [facility], CT, CT CERVICAL SPINE WO CON, 10/10/2020, 11:53. [facility], CT, CT THORACIC SPINE WO CON, 10/10/2020, 11:53. [facility], CT, CT HEAD/BRAIN WO CON, 10/10/2020, 11:53. FINDINGS: Image quality: Excellent. Bones: At the L1 level, there is a pathologic fracture seen, with 70% loss of height centrally. There is posterior displacement of fracture fragments of 6-7 mm. There is associated moderate to severe central canal narrowing at this level. At L2, there is 30% loss of height centrally and on the right, with a vertically oriented fracture cleft. There is abnormal lucency seen within each vertebral body, although worst at T11, L1, and L2. At the L4-L5 level, there is moderate to severe disc space narrowing seen, with partial bony bridging and post erected endplate osteophytes. There is moderate central canal narrowing seen. Milder degenerative changes are seen elsewhere. Soft tissues: No retroperitoneal masses or hematomas. Visualized aorta is normal in caliber. IMPRESSION: L1 pathologic fracture, with 70% loss of height centrally and 6-7 mm posterior displacement of fracture fragments. L2 pathologic fracture, with 30% loss of height on the right side. Abnormal lucency is seen within vertebral bodies, which is worst at T11, T12, and L1, although seen within each vertebral body. These pathologic bony changes are new compared to 2019. Stable L4-L5 focal degenerative change. Dictated by: Garrison Cedillo M.D. on 10/10/2020 at 11:23 Approved by: Garrison Cedillo M.D. on 10/10/2020 at 11:26
--- NOTE | 2020-10-10 11:42 | DI.CT.S_ITS ---
PROCEDURE: CT THORACIC SPINE WO CON INDICATIONS: Metastatic cancer TECHNIQUE: Noncontrast 3 mm thick sections acquired through the region of interest in the thoracic spine. Sagittal and coronal reformats were then constructed. For radiation dose reduction, the following was used: automated exposure control. COMPARISON: [facility], CT, CT CERVICAL SPINE WO CON, 10/10/2020, 11:53. [facility], CT, CT LUMBAR SPINE WO CON, 10/10/2020, 11:53. [facility], CT, CT HEAD/BRAIN WO CON, 10/10/2020, 11:53. [facility], CT, CT CHEST ABD PEL W CON, 09/11/2018, 11:22. FINDINGS: Image quality: Excellent. Bones: Areas of abnormal lucency can be seen throughout the thoracic spine. There is a pathologic fracture seen at T2, with 20-30% loss of height centrally. There is also a pathological fracture seen involving L1, with 70% loss of height centrally and 6-7 mm posterior displacement of fracture fragments. At L2, there is a palatal logic fracture seen, with 30% loss of height on the right side. These pathologic bony changes are new compared to 2019. Degenerative changes are seen throughout. Within the T1 spinous process, there is a benign-appearing bone island, as on series 6 image 22. Soft tissues: No paravertebral masses or hematomas. Visualized posteromedial lungs appear clear. IMPRESSION: Areas of bony lucency can be seen throughout, which are consistent with the given history. Pathologic fractures can be seen at T2, L1, and L2. Dictated by: Garrison Cedillo M.D. on 10/10/2020 at 11:27 Approved by: Garrison Cedillo M.D. on 10/10/2020 at 11:29
--- NOTE | 2020-10-10 11:42 | DI.CT.S_ITS ---
PROCEDURE: CT HEAD/BRAIN WO CON INDICATIONS: falling with lymphoma TECHNIQUE: Noncontrast 4.5 mm thick angled axial sections acquired from the foramen magnum to the vertex, with coronal and sagittal reformats. For radiation dose reduction, the following was used: automated exposure control, adjustment of mA and/or kV according to patient size. COMPARISON: None. FINDINGS: Image quality: Mild streak artifact can be seen through the skull base. CSF spaces: Basal cisterns are patent. No extra-axial fluid collections. The ventricles are symmetric in size and shape. Brain: No intracranial bleeds or masses. There is cerebral volume loss for age, with resultant ventricular and sulcal prominence. There are periventricular and deep white matter chronic small vessel ischemic changes. There is intracranial internal carotid artery atherosclerosis. Skull and face: Calvarium and visualized facial bones appear intact, without suspicious lesions. Sinuses: Visualized sinuses and mastoids are clear. IMPRESSION: No acute intracranial hemorrhage is seen. No acute intracranial process is seen. If it would be helpful for clinical management decision making, please consider a dedicated brain MRI (without and with contrast) for further evaluation (assuming that there is no contraindication). Dictated by: Garrison Cedillo M.D. on 10/10/2020 at 11:11 Approved by: Garrison Cedillo M.D. on 10/10/2020 at 11:12
[2020-10-10] MEDS: HYDROMORPHONE 1 MG INJ IV (12:06)
[2020-10-10 13:54] VITALS: PULSE 64; O2SAT 99
[2020-10-10 13:55] VITALS: BP 103/66; PULSE 68; O2SAT 98
== END 2020-10-10 14:35 | disposition home or self-care (01) ==
PROVIDERS: Emergency Provider Emergency Medicine; PCP Family Medicine
DX: M48.56XA Collapsed vertebra, not elsewhere classified, lumbar region, initial encounter for fracture (principal); C85.90 Non-Hodgkin lymphoma, unspecified, unspecified site; I48.20 Chronic atrial fibrillation, unspecified
CPT/HCPCS: 36415; 70450; 71045; 72125; 72128; 72131; 80053; 82550; 83690; 84484; 85007; 85025; 93005; 93010; 96374; 99284; J1170

== ENCOUNTER → 2020-10-22 08:28 | Outpatient (CLI) | payer MEDICARE, OTHER, SELFPAY ==
[2020-10-04 21:00] VITALS: BMI 28.8
[2020-10-22 09:51] LABS: BUN Creatinine Ratio 35.2 (6-22); Blood Urea Nitrogen 56 mg/dL (9-20); Calcium 8.6 mg/dL (8.4-10.2); Carbon Dioxide 22 mmol/L (22-32); Chloride 104 mmol/L (98-107); Estimated Glomerular Filt Rate 43.5 mL/min (>60); Glucose 203 mg/dL (80-110); HEMOLYSIS < 15 (0-50); Magnesium 1.1 mg/dL (1.6-2.3); Sodium 135 mmol/L (137-145)
[2020-10-22 09:53] LABS: Potassium 5.8 mmol/L (3.4-5.1)
== END ==
PROVIDERS: PCP Family Medicine; Referring Provider Internal Medicine Hematology & Oncology; Visit Provider Internal Medicine Hematology & Oncology
DX: T86.99 Other complications of unspecified transplanted organ and tissue (principal)
CPT/HCPCS: 36415; 80048; 83735

== ENCOUNTER 2020-10-27 13:00 | Emergency (ER) | payer MEDICARE, OTHER, SELFPAY ==
[2020-10-04 21:00] VITALS: BMI 28.8
[2020-10-27] VITALS (24 sets, daily range): BP systolic 76–105; BP diastolic 44–60; PULSE 72–81; RESP 16–20; TEMP 36.6–37.1; O2SAT 89–99
[2020-10-27] MEDS: MORPHINE 4 MG/ML INJ SUBCUT (14:01)
--- NOTE | 2020-10-27 15:17 | CM.SWNOTE ---
Addendum entered by Elyssa Rodriguez 10/29/20 17:28: SEARCH ENGINE OPTIMIZER Follow up note SEARCH ENGINE OPTIMIZER contacts patient and , confirms that PCP office submitted referral to [email or web address] SEARCH ENGINE OPTIMIZER informs patient and to f/u with cancer center to schedule appt. informs SEARCH ENGINE OPTIMIZER that patient has scheduled appt at [facility] on the week of 11/05 and she would like to transfer cancer care centers prior to that. SERGIO Mays Addendum entered by Elyssa Rodriguez 10/27/20 17:29: SEARCH ENGINE OPTIMIZER Note SEARCH ENGINE OPTIMIZER meets with patient and in room. It is reported that patient is independent with ADLs and uses walker for support. It is reported that patient's and daughter help as needed. SEARCH ENGINE OPTIMIZER discusses comfort care and HH. Patient's reports that PCP discussed HH and they are not interested in that at this time. and patient endorse interest in transferring to [facility]. SEARCH ENGINE OPTIMIZER endorses that SEARCH ENGINE OPTIMIZER will follow up with patient and to ensure that referral has been placed. Plan: Patient to d/c to home when medically clear, SEARCH ENGINE OPTIMIZER to follow up with patient and this week to ensure transfer of cancer care services. SERGIO Mays Original Note: SEARCH ENGINE OPTIMIZER Note SEARCH ENGINE OPTIMIZER receives consult and meets with patient and in private area of waiting room. Patient is 70 y/o male with concern for pain, and presents with sores on his leg. Patient and endorse that PCP with [facility] in [place] Dr. Vishal Fields recommended ED visit. Patient has dx of lymphoma and receives oncology care from [facility]. Patient endorses he is in pain. endorses that patient will wake up in the middle of the night screaming in pain. endorses that patient [facility] [place] cannot provide patient pain medication as patient receives pain management medications from PCP. Patient and endorse that they would be interested in transferring to [facility] in [place] to avoid the lengthy travel to [place]. Patient and endorse that their daughter lives near by next door and provides support and assists with transportation. SEARCH ENGINE OPTIMIZER endorses that SEARCH ENGINE OPTIMIZER will contact [facility] to inquire about transferring care. SEARCH ENGINE OPTIMIZER speaks with Oncology SEARCH ENGINE OPTIMIZER Coco Sharif and it is reported that PCP or [facility] is to put in referral for patient to transfer for convenience. SEARCH ENGINE OPTIMIZER calls patient's PCP Dr. Fields's office and facilitates coordination of care for PCP to make referral to [facility] at . SEARCH ENGINE OPTIMIZER reviews the above with patient's who indicates agreement and understanding. Patient's endorses she is looking into supports at home. SEARCH ENGINE OPTIMIZER to provide patient and with senior resource guide and for further information regarding at home services. Plan: ED provider to meet with patient for further medical assessment and SEARCH ENGINE OPTIMIZER to f/u with further POC. SERGIO Mays
--- NOTE | 2020-10-27 16:57 | ED.SKABFB ---
HPI - Skin/Abscess/Foreign Bdy <Gagandeep Diaz, DO - Last Filed: 10/28/20 06:47> General Chief complaint: Skin/Abscess/Foreign Body Stated complaint: All over pain ofr 2 months Time Seen by Provider: 10/27/20 16:41 Source: patient and family Mode of arrival: Wheelchair History of Present Illness HPI narrative: Patient is a 70-year-old male. Has a history of lymphoma. Is currently undergoing chemotherapy. His last chemotherapy with dose was October 17. He is here for evaluation continued/worsening of his baseline pain and also rash on his lower extremities. The rash started a couple days ago. He thought that it occurred after he hit his legs on the bed. His has been putting topical antibiotic ointment over the area. He states the pain is that he is having is his normal pain. He is having pain in his legs as well. Is also having swelling in his legs. He has talked with his oncologist about the swelling in his legs but patient states that they were more worried about him getting chemotherapy than the swelling. No fevers. Related Data Home Medications Medication Instructions Recorded Confirmed acyclovir 400 mg tablet 400 mg PO BID 10/04/20 10/04/20 baclofen 10 mg tablet 10 mg PO TID PRN 10/04/20 10/04/20 entecavir 0.5 mg tablet 0.5 mg PO DAILY 10/04/20 10/04/20 finasteride 5 mg tablet 5 mg PO DAILY 10/04/20 10/04/20 furosemide 20 mg tablet 40 mg PO QAM 10/04/20 10/04/20 metformin 500 mg tablet 1,000 mg PO BID 10/04/20 10/04/20 morphine 15 mg immediate release 15 mg PO Q6HR PRN 10/04/20 10/04/20 tablet nadolol 40 mg tablet 40 mg PO DAILY 10/04/20 10/04/20 prochlorperazine maleate 10 mg 10 mg PO Q6HR PRN 10/04/20 10/04/20 tablet sitagliptin 25 mg tablet (Januvia) 25 mg PO DAILY 10/04/20 10/04/20 tacrolimus 0.5 mg capsule, 0.5 mg PO BID 10/04/20 10/04/20 immediate-release tizanidine 2 mg capsule 2 mg PO TID PRN 10/04/20 10/04/20 Previous Rx's Medication Instructions Recorded acetaminophen 300 mg-codeine 30 mg 1 tab PO Q4-6H PRN #20 tab 07/03/20 tablet digoxin 125 mcg (0.125 mg) tablet 125 mcg PO DAILY #30 tab 10/06/20 diltiazem HCl 120 mg 120 mg PO DAILY #30 cap 10/06/20 capsule,extended release 24 hr docusate sodium 100 mg capsule 100 mg PO BID #30 cap 10/06/20 (DOK) levofloxacin 250 mg tablet 750 mg PO DAILY #9 tab 10/06/20 morphine 10 mg/5 mL oral solution 10 mg PO Q6H PRN #100 ml 10/10/20 morphine 20 mg/5 mL (4 mg/mL) oral 20 mg PO Q4H PRN #100 ml 10/10/20 solution hydromorphone 4 mg tablet 4 mg PO Q4H PRN #30 tab 10/28/20 Allergies Allergy/AdvReac Type Severity Reaction Status Date / Time hydrocodone [HYDROCODONE] Allergy Severe SEVERE Verified 10/10/20 09:37 ITCHING tetracycline [TETRACYCLINE] Allergy Unknown Verified 10/10/20 09:37 ampicillin Allergy Verified 10/10/20 09:37 bee venom protein (honey bee) Allergy Verified 10/10/20 09:37 oxycodone [OXYCODONE] AdvReac Severe SEVERE Verified 10/10/20 09:37 ITCHING Review of Systems <Gagandeep Diaz DO - Last Filed: 10/28/20 06:47> Constitutional Constitutional: Reports system reviewed and no additional complaints, except as documented ENT Ears, Nose, Mouth, and Throat: Denies sore throat Cardiovascular Cardiovascular: Reports system reviewed and no additional complaints, except as documented Respiratory Respiratory: Reports system reviewed and no additional complaints, except as documented Gastrointestinal Gastrointestinal: Reports system reviewed and no additional complaints, except as documented Musculoskeletal Musculoskeletal: Reports as per HPI Integumentary/Breasts Skin/Breast: Reports as per HPI Neurologic Neurologic: Reports system reviewed and no additional complaints, except as documented Psychiatric Psychiatric: Reports system reviewed and no additional complaints, except as documented Hematologic/Lymphatic On Anticoagulants: No Allergic/Immunologic Allergic/Immunologic: Reports system reviewed and no additional complaints, except as documented Patient History <Gagandeep Diaz DO - Last Filed: 10/28/20 06:47> Medical History Atrial fibrillation B-cell lymphoma Chronic back pain greater than 3 months duration Diabetes mellitus History of cirrhosis of liver History of hepatitis C Non-insulin dependent type 2 diabetes mellitus Surgical History Liver transplant recipient Family History (Updated 10/05/20 @ 00:24 by OBIE Lopez) Mother Atrial fibrillation and flutter Father Chronic headaches Social History household members: spouse and family Smoking Status: Former smoker alcohol intake: never Smoking Status: Former smoker alcohol intake frequency: holidays/special occasions only Substance Use Type: does not use Exam <Gagandeep Diaz DO - Last Filed: 10/28/20 06:47> Initial Vital Signs Initial Vital Signs: Vital Signs Temperature 97.8 F 10/27/20 13:30 Pulse Rate 78 10/27/20 13:30 Respiratory Rate 20 10/27/20 13:30 Blood Pressure 96/51 L 10/27/20 13:30 Pulse Oximetry 97 10/27/20 13:30 Const General: ill appearing HENMT Head: normal to inspection and normocephalic Eyes General: appearance normal, both eyes and all related structures Resp Effort & Inspection: normal respiratory effort Auscultation: clear to auscultation bilaterally Cardio Rate: regular rate Rhythm: regular rhythm GI Inspection: normal to inspection Skin Other: Patient does have what appears to be petechiae bilateral lower extremities. Neuro General: patient alert, patient awake, patient oriented x3 and moves all extremities Extrem General: normal to inspection and capillary refill normal Psych Appearance: grossly normal <Mason Lawton DO - Last Filed: 10/28/20 03:25> Initial Vital Signs Initial Vital Signs: Vital Signs Temperature 97.8 F 10/27/20 13:30 Pulse Rate 78 10/27/20 13:30 Respiratory Rate 20 10/27/20 13:30 Blood Pressure 96/51 L 10/27/20 13:30 Pulse Oximetry 97 10/27/20 13:30 Course <DO David Roque Last Filed: 10/28/20 06:47> Orders Ordered: Discontinued Medications Hydromorphone HCl (Hydromorphone 1 Mg Inj) 1 mg IV NOW ONE Stop: 10/27/20 16:58 Last Admin: 10/27/20 17:17 Dose: 1 mg Documented by: THUYYLOR Morphine Sulfate (Morphine 4 Mg/Ml Inj) 4 mg SUBCUT NOW ONE Stop: 10/27/20 13:42 Last Admin: 10/27/20 14:01 Dose: 4 mg Documented by: LAUREN Vital Signs Vital signs: Vital Signs - 8 hr 10/27/20 23:00 10/27/20 23:30 10/28/20 00:00 Temperature Pulse Rate 79 78 82 Respiratory Rate Blood Pressure 100/60 97/53 L Pulse Oximetry 94 95 94 10/28/20 00:03 10/28/20 00:05 10/28/20 00:30 Temperature 98.3 F Pulse Rate 82 83 84 Respiratory Rate 17 Blood Pressure 93/54 L 93/54 L 94/51 L Pulse Oximetry 94 94 <Mason Lawton, DO - Last Filed: 10/28/20 03:25> Course Course Narrative: Patient received in sign-out from Dr. Diaz. I performed independent history and physical. Was to transfuse 1 unit of pack cells and discharged home. Patient is feeling a bit better. We did discuss that his morphine isn't quite cutting it anymore and I have discussed the utility and trying Dilaudid. Additionally he has had increasing swelling of his feet and has been off his for as a might. I instructed him to consider beginning that medication again. Orders Ordered: Discontinued Medications Hydromorphone HCl (Hydromorphone 1 Mg Inj) 1 mg IV NOW ONE Stop: 10/27/20 16:58 Last Admin: 10/27/20 17:17 Dose: 1 mg Documented by: ATAYLOR Morphine Sulfate (Morphine 4 Mg/Ml Inj) 4 mg SUBCUT NOW ONE Stop: 10/27/20 13:42 Last Admin: 10/27/20 14:01 Dose: 4 mg Documented by: LAUREN Vital Signs Vital signs: Vital Signs - 8 hr 10/27/20 23:00 10/27/20 23:30 10/28/20 00:00 Temperature Pulse Rate 79 78 82 Respiratory Rate Blood Pressure 100/60 97/53 L Pulse Oximetry 94 95 94 10/28/20 00:03 10/28/20 00:05 10/28/20 00:30 Temperature 98.3 F Pulse Rate 82 83 84 Respiratory Rate 17 Blood Pressure 93/54 L 93/54 L 94/51 L Pulse Oximetry 94 94 MDM - Skin/Abscess/Foreign Bdy <Gagandeep Diaz DO - Last Filed: 10/28/20 06:47> Lab Data Attestation: I reviewed the patient's lab results. Result diagrams: 10/27/20 17:08 10/27/20 17:08 Labs: Lab Results 10/27/20 10/27/20 10/27/20 Range/Units 17:08 17:08 19:35 WBC 1.4 L* (4.5-11.0) X10^3/uL RBC 2.51 L (4.5-5.9) X10^6/uL Hgb 7.9 L (13.5-17.5) g/dL Hct 23.0 L (41-53) % MCV 91.8 (80-100) fL MCH 31.4 (26-34) PG MCHC 34.2 (30-36) % RDW 21.0 H (11.6-14.8) % Plt Count 26 L* (150-400) X10^3/uL Neut % (Auto) Not Reportable Lymph % (Auto) Not Reportable Brantley % (Auto) Not Reportable Eos % (Auto) Not Reportable Baso % (Auto) Not Reportable Lymph # (Auto) Not Reportable Brantley # (Auto) Not Reportable Baso # (Auto) Not Reportable Total Counted 100 Seg Neutrophils % 33.0 L (38-70) % Lymphocytes % (Manual) 49.0 H (25-45) % Monocytes % (Manual) 12.0 H (2-11) % Eosinophils % (Manual) 3.0 (2-4) % Basophils % (Manual) 2.0 H (0-1) % Myelocytes % 1.0 H (-0) % Neutrophils # (Manual) 462 L (9533-3041) /uL RBC Morphology See below Anisocytosis 2+ H Spherocytes 2+ H Sodium 133 L (137-145) mmol/L Potassium 4.3 D (3.4-5.1) mmol/L Chloride 102 (98-107) mmol/L Carbon Dioxide 22 (22-32) mmol/L BUN 32 H (9-20) mg/dL Creatinine 1.17 (0.66-1.25) mg/dL Estimated GFR > 60.0 (>60) mL/min BUN/Creatinine Ratio 27.4 H (6-22) Glucose 156 H (80-110) mg/dL Calcium 8.0 L (8.4-10.2) mg/dL Blood Type O Negative Antibody Screen Negative Crossmatch See Detail MDM Narrative Medical decision making narrative: Patient's pain is baseline for him just worse. He does have bilateral lower extremity swelling. He does have petechiae on his lower extremities. Patient is pancytopenic. Afebrile. Discussed the case with on-call Oncology who recommended given his hematocrit that he be transfused 1 unit of packed red blood cells. They did not recommend transfusing platelets. Care turned over to Dr. Lawton to follow-up and disposition <Mason Lawton DO - Last Filed: 10/28/20 03:25> Lab Data Labs: Lab Results 10/27/20 10/27/20 10/27/20 Range/Units 17:08 17:08 19:35 WBC 1.4 L* (4.5-11.0) X10^3/uL RBC 2.51 L (4.5-5.9) X10^6/uL Hgb 7.9 L (13.5-17.5) g/dL Hct 23.0 L (41-53) % MCV 91.8 (80-100) fL MCH 31.4 (26-34) PG MCHC 34.2 (30-36) % RDW 21.0 H (11.6-14.8) % Plt Count 26 L* (150-400) X10^3/uL Neut % (Auto) Not Reportable Lymph % (Auto) Not Reportable Brantley % (Auto) Not Reportable Eos % (Auto) Not Reportable Baso % (Auto) Not Reportable Lymph # (Auto) Not Reportable Brantley # (Auto) Not Reportable Baso # (Auto) Not Reportable Total Counted 100 Seg Neutrophils % 33.0 L (38-70) % Lymphocytes % (Manual) 49.0 H (25-45) % Monocytes % (Manual) 12.0 H (2-11) % Eosinophils % (Manual) 3.0 (2-4) % Basophils % (Manual) 2.0 H (0-1) % Myelocytes % 1.0 H (-0) % Neutrophils # (Manual) 462 L (2852-3537) /uL RBC Morphology See below Anisocytosis 2+ H Spherocytes 2+ H Sodium 133 L (137-145) mmol/L Potassium 4.3 D (3.4-5.1) mmol/L Chloride 102 (98-107) mmol/L Carbon Dioxide 22 (22-32) mmol/L BUN 32 H (9-20) mg/dL Creatinine 1.17 (0.66-1.25) mg/dL Estimated GFR > 60.0 (>60) mL/min BUN/Creatinine Ratio 27.4 H (6-22) Glucose 156 H (80-110) mg/dL Calcium 8.0 L (8.4-10.2) mg/dL Blood Type O Negative Antibody Screen Negative Crossmatch See Detail Discharge Plan Departure Patient Disposition: Home Clinical Impression: Anemia Qualifiers: Anemia type: unspecified type Qualified Code(s): D64.9 - Anemia, unspecified Instructions: Anemia Activity Restrictions/Additional Instructions: *You have been diagnosed with [anemia and generalized pain] *What to do: *Please consider trying the new pain medication (Dilaudid/Hydromorphone) in place of the morphine. DO NOT MIX them as they may result in overdose. *Please consider starting your Furosemide again as this will likely help with the swelling in your feet. *Otherwise Please continue to take your regular medications as directed. [ x] New medication prescriptions sent to your pharmacy: [[facility] ] [ ] New medication written as a paper prescription [ ] No new medications given *Please follow up with your primary care provider in 2-3 days, call for an appointment. Let them know you were seen in the Emergency Department and that we ask that you be seen in follow up. We will electronically transmit a record of today's note if your PCP is in our system *If you do not have a primary care provider please contact the [facility] Resource line at [phone]. They will ask some questions about your medical history and help get you set up with a doctor in the community. *Return to Emergency Department if you should have any new, worsening or concerning symptoms, such as [fever greater than 101 F, shaking chills, worsening pain, persistent vomiting or other bothersome symptoms] Prescriptions: New hydromorphone 4 mg tablet 4 mg PO Q4H PRN (Reason: pain) Qty: 30 RF: 0 No Action metformin 500 mg tablet 1,000 mg PO BID RF: 0 prochlorperazine maleate 10 mg tablet 10 mg PO Q6HR PRN (Reason: nausea/vomiting) RF: 0 acyclovir 400 mg tablet 400 mg PO BID RF: 0 baclofen 10 mg tablet 10 mg PO TID PRN (Reason: muscle spasms) RF: 0 nadolol 40 mg tablet 40 mg PO DAILY RF: 0 furosemide 20 mg tablet 40 mg PO QAM RF: 0 morphine 15 mg tablet 15 mg PO Q6HR PRN (Reason: Pain (Scale Score 7-10)) RF: 0 finasteride 5 mg tablet 5 mg PO DAILY RF: 0 tacrolimus 0.5 mg capsule 0.5 mg PO BID RF: 0 tizanidine 2 mg capsule 2 mg PO TID PRN (Reason: muscle spasms) RF: 0 entecavir 0.5 mg tablet 0.5 mg PO DAILY RF: 0 Januvia 25 mg tablet 25 mg PO DAILY RF: 0 levofloxacin 250 mg Tablet 750 mg PO DAILY Qty: 9 RF: 0 docusate sodium [DOK] 100 mg Capsule 100 mg PO BID Qty: 30 RF: 0 digoxin 125 mcg (0.125 mg) tablet 125 mcg PO DAILY Qty: 30 RF: 0 diltiazem HCl 120 mg capsule,extended release 24hr 120 mg PO DAILY Qty: 30 RF: 0 morphine 10 mg/5 mL solution 10 mg PO Q6H PRN (Reason: pain (scale score 4-6)) Qty: 100 RF: 0 morphine 20 mg/5 mL (4 mg/mL) solution 20 mg PO Q4H PRN (Reason: pain) Qty: 100 RF: 0 acetaminophen-codeine 300-30 mg tablet 1 tab PO Q4-6H PRN (Reason: pain) Qty: 20 RF: 0 Referrals: Vishal Fields MD [Primary Care Provider] -
[2020-10-27] MEDS: HYDROMORPHONE 1 MG INJ IV (17:17)
[2020-10-27 17:39] LABS: Mean Corpuscular HGB Conc 34.2 % (30-36); Mean Corpuscular Hemoglobin 31.4 PG (26-34); Mean Corpuscular Volume 91.8 fL (80-100); Red Blood Cell Count 2.51 X10^6/uL (4.5-5.9)
[2020-10-27 17:40] LABS: BUN Creatinine Ratio 27.4 (6-22); Blood Urea Nitrogen 32 mg/dL (9-20); Carbon Dioxide 22 mmol/L (22-32); Chloride 102 mmol/L (98-107); Estimated Glomerular Filt Rate > 60.0 mL/min (>60); Glucose 156 mg/dL (80-110); HEMOLYSIS < 15 (0-50); Potassium 4.3 mmol/L (3.4-5.1); Sodium 133 mmol/L (137-145)
[2020-10-27 17:44] LABS: White Blood Cell Count 1.4 X10^3/uL (4.5-11.0)
[2020-10-27 17:45] LABS: Hemoglobin 7.9 g/dL (13.5-17.5)
[2020-10-27 17:46] LABS: Add Manual Diff / Slide Review YES; Platelet Count 26 X10^3/uL (150-400)
--- NOTE | 2020-10-27 18:00 | PC.NURSE ---
Pt states increased pain over the past couple of days 9-/10, waking up and screaming in pain. He states he is a 7-8/10 at baseline and home medications are not relieving pain as they were previously.
[2020-10-27 18:16] LABS: Anisocytosis 2+; Neutrophils Absolute Manual 462 /uL (3000-5900); Total Cells Counted 100
[2020-10-27 18:17] LABS: Spherocytes 2+
[2020-10-28] VITALS: PULSE 82; O2SAT 94
[2020-10-28 00:03] VITALS: BP 93/54; PULSE 82; O2SAT 94
[2020-10-28 00:05] VITALS: BP 93/54; PULSE 83; RESP 17; TEMP 36.8
[2020-10-28 00:30] VITALS: BP 94/51; PULSE 84; O2SAT 94
== END 2020-10-28 01:00 | disposition home or self-care (01) ==
PROVIDERS: Emergency Medicine; Emergency Provider Emergency Medicine; PCP Family Medicine
DX: D64.9 Anemia, unspecified (principal); R52 Pain, unspecified; C85.90 Non-Hodgkin lymphoma, unspecified, unspecified site
CPT/HCPCS: 36415; 36430; 80048; 85007; 85025; 86850; 86900; 86901; 96372; 96374; 99284; P9016; J1170; J2270

== ENCOUNTER 2020-11-10 11:16 | Emergency (ER) | payer MEDICARE, OTHER, SELFPAY ==
[2020-10-04 21:00] VITALS: BMI 28.8
[2020-11-10 11:32] VITALS: BP 118/63; PULSE 63; RESP 18; TEMP 36.6; O2SAT 97; BMI 27.3
--- NOTE | 2020-11-10 11:43 | ED.RECABL ---
HPI - Recheck/Abnormal Lab/Rx General Chief Complaint: Recheck/Abnormal Lab/Rx Stated Complaint: Port issues Time Seen by Provider: 11/10/20 11:43 Source: patient Mode of arrival: Wheelchair Limitations: no limitations History of Present Illness HPI narrative: 70-year-old male who is currently undergoing chemotherapy who was at the [facility] and had his port access in his right chest. He was unable to receive chemotherapy because of his low platelet count however he left [facility] without having the port de accessed. He is here solely to have his port de accessed. He has follow-up already established to follow-up on his low platelet count and chemotherapy. Related Data Home Medications Medication Instructions Recorded Confirmed acyclovir 400 mg tablet 400 mg PO BID 10/04/20 10/04/20 baclofen 10 mg tablet 10 mg PO TID PRN 10/04/20 10/04/20 entecavir 0.5 mg tablet 0.5 mg PO DAILY 10/04/20 10/04/20 finasteride 5 mg tablet 5 mg PO DAILY 10/04/20 10/04/20 furosemide 20 mg tablet 40 mg PO QAM 10/04/20 10/04/20 metformin 500 mg tablet 1,000 mg PO BID 10/04/20 10/04/20 morphine 15 mg immediate release 15 mg PO Q6HR PRN 10/04/20 10/04/20 tablet nadolol 40 mg tablet 40 mg PO DAILY 10/04/20 10/04/20 prochlorperazine maleate 10 mg 10 mg PO Q6HR PRN 10/04/20 10/04/20 tablet sitagliptin 25 mg tablet (Januvia) 25 mg PO DAILY 10/04/20 10/04/20 tacrolimus 0.5 mg capsule, 0.5 mg PO BID 10/04/20 10/04/20 immediate-release tizanidine 2 mg capsule 2 mg PO TID PRN 10/04/20 10/04/20 diphenhydramine HCl 25 mg tablet 25 mg PO BID 11/05/20 11/05/20 multivitamin 1 tab PO DAILY 11/05/20 11/05/20 omeprazole 20 mg capsule,delayed 20 mg PO DAILY 11/05/20 11/05/20 release ondansetron HCl 8 mg tablet 8 mg PO Q8H 11/05/20 11/05/20 prednisone 50 mg tablet 100 mg PO DAILY 11/05/20 11/05/20 sulfamethoxazole 800 1 tab PO Q12H 11/05/20 11/05/20 mg-trimethoprim 160 mg tablet Previous Rx's Medication Instructions Recorded acetaminophen 300 mg-codeine 30 mg 1 tab PO Q4-6H PRN #20 tab 07/03/20 tablet docusate sodium 100 mg capsule 100 mg PO BID #30 cap 10/06/20 (DOK) levofloxacin 250 mg tablet 750 mg PO DAILY #9 tab 10/06/20 morphine 10 mg/5 mL oral solution 10 mg PO Q6H PRN #100 ml 10/10/20 morphine 20 mg/5 mL (4 mg/mL) oral 20 mg PO Q4H PRN #100 ml 10/10/20 solution hydromorphone 4 mg tablet 4 mg PO Q4H PRN #30 tab 10/28/20 Allergies Allergy/AdvReac Type Severity Reaction Status Date / Time hydrocodone [HYDROCODONE] Allergy Severe SEVERE Verified 10/10/20 09:37 ITCHING tetracycline [TETRACYCLINE] Allergy Unknown Verified 10/10/20 09:37 ampicillin Allergy Verified 10/10/20 09:37 bee venom protein (honey bee) Allergy Verified 10/10/20 09:37 oxycodone [OXYCODONE] AdvReac Severe SEVERE Verified 10/10/20 09:37 ITCHING Review of Systems Constitutional Comments: No fevers Integumentary/Breasts Comments: Port accessed right upper chest Hematologic/Lymphatic On Anticoagulants: No Patient History Medical History Atrial fibrillation B-cell lymphoma Chronic back pain greater than 3 months duration Diabetes mellitus History of cirrhosis of liver History of hepatitis C Non-insulin dependent type 2 diabetes mellitus Surgical History (Updated 11/05/20 @ 16:42 by Harris Root MD) Liver transplant recipient Family History (Updated 10/05/20 @ 00:24 by RHYS Lopez) Mother Atrial fibrillation and flutter Father Chronic headaches Social History household members: spouse and family Smoking Status: Former smoker alcohol intake: never Smoking Status: Former smoker alcohol intake frequency: holidays/special occasions only Substance Use Type: does not use Exam Initial Vital Signs Initial Vital Signs: Vital Signs Temperature 97.9 F 11/10/20 11:32 Pulse Rate 63 11/10/20 11:32 Respiratory Rate 18 11/10/20 11:32 Blood Pressure 118/63 11/10/20 11:32 Pulse Oximetry 97 11/10/20 11:32 Const General: cooperative and healthy appearing [facility] Head: normal to inspection Resp Effort & Inspection: normal respiratory effort Cardio Rate: regular rate GI Inspection: normal to inspection Skin Other: Patient's port a right upper chest appears well. Neuro General: patient alert and patient awake Course Vital Signs Vital signs: Vital Signs - 8 hr 11/10/20 11:32 Temperature 97.9 F Pulse Rate 63 Respiratory Rate 18 Blood Pressure 118/63 Pulse Oximetry 97 MDM - Recheck/Abnormal Lab/Rx MDM Narrative Medical decision making narrative: Patient's port was flushed with heparin and de-accessed by nursing. The site appears well. Will have patient follow-up as previously scheduled. Discharge Plan Departure Patient Disposition: Home Clinical Impression: Lymphoma Activity Restrictions/Additional Instructions: Keep all of your scheduled medical appointments. Return to the emergency department for any new or worsening symptoms Prescriptions: No Action metformin 500 mg tablet 1,000 mg PO BID RF: 0 prochlorperazine maleate 10 mg tablet 10 mg PO Q6HR PRN (Reason: nausea/vomiting) RF: 0 acyclovir 400 mg tablet 400 mg PO BID RF: 0 baclofen 10 mg tablet 10 mg PO TID PRN (Reason: muscle spasms) RF: 0 nadolol 40 mg tablet 40 mg PO DAILY RF: 0 furosemide 20 mg tablet 40 mg PO QAM RF: 0 morphine 15 mg tablet 15 mg PO Q6HR PRN (Reason: Pain (Scale Score 7-10)) RF: 0 finasteride 5 mg tablet 5 mg PO DAILY RF: 0 tacrolimus 0.5 mg capsule 0.5 mg PO BID RF: 0 tizanidine 2 mg capsule 2 mg PO TID PRN (Reason: muscle spasms) RF: 0 entecavir 0.5 mg tablet 0.5 mg PO DAILY RF: 0 Januvia 25 mg tablet 25 mg PO DAILY RF: 0 levofloxacin 250 mg Tablet 750 mg PO DAILY Qty: 9 RF: 0 docusate sodium [DOK] 100 mg Capsule 100 mg PO BID Qty: 30 RF: 0 morphine 10 mg/5 mL solution 10 mg PO Q6H PRN (Reason: pain (scale score 4-6)) Qty: 100 RF: 0 morphine 20 mg/5 mL (4 mg/mL) solution 20 mg PO Q4H PRN (Reason: pain) Qty: 100 RF: 0 hydromorphone 4 mg tablet 4 mg PO Q4H PRN (Reason: pain) Qty: 30 RF: 0 multivitamin Tablet 1 tab PO DAILY RF: 0 ondansetron HCl [Zofran] 8 mg Tablet 8 mg PO Q8H RF: 0 sulfamethoxazole-trimethoprim 800-160 mg Tablet 1 tab PO Q12H RF: 0 diphenhydramine HCl 25 mg Tablet 25 mg PO BID RF: 0 prednisone 50 mg Tablet 100 mg PO DAILY RF: 0 omeprazole 20 mg Capsule,Delayed Release(Dr/Ec) 20 mg PO DAILY RF: 0 acetaminophen-codeine 300-30 mg tablet 1 tab PO Q4-6H PRN (Reason: pain) Qty: 20 RF: 0 Referrals: Vishal Fields MD [Primary Care Provider] -
== END 2020-11-10 11:58 | disposition home or self-care (01) ==
PROVIDERS: Emergency Provider Emergency Medicine; PCP Family Medicine
DX: C85.90 Non-Hodgkin lymphoma, unspecified, unspecified site (principal)
CPT/HCPCS: 36415; 80053; 83615; 85025; 99283; J1642

== ENCOUNTER 2020-11-17 05:30 | Inpatient (IN) | payer MEDICARE, OTHER, SELFPAY ==
[2020-10-04 21:00] VITALS: BMI 28.8
[2020-11-17] VITALS (20 sets, daily range): BP systolic 106–161; BP diastolic 61–97; PULSE 64–135; RESP 16–27; TEMP 36–37.4; O2SAT 92–98; BMI 27.9
--- NOTE | 2020-11-17 05:47 | DI.RAD.S_ITS ---
PROCEDURE: XR CHEST 1V INDICATIONS: chest pain TECHNIQUE: One view of the chest was acquired. COMPARISON: [facility], CR, XR CHEST 1V, 10/10/2020, 10:01. FINDINGS: Surgical changes and devices: Right chest Port-A-Cath Lungs and pleura: Lungs are clear. No pleural effusions or pneumothorax. Mediastinum: Mediastinal contours appear normal. Heart size is normal. Bones and chest wall: No suspicious bony lesions. Overlying soft tissues appear unremarkable. IMPRESSION: No evidence acute pulmonary process. Comment: Final report is concordant with preliminary interpretation provided by [facility]. Dictated by: Mitch Kramer M.D. on 11/17/2020 at 7:57 Approved by: Mitch Kramer M.D. on 11/17/2020 at 7:58
[2020-11-17 05:56] LABS: Hemoglobin 9.3 g/dL (13.5-17.5); Mean Corpuscular HGB Conc 34.4 % (30-36); Mean Corpuscular Hemoglobin 33.7 PG (26-34); Platelet Count 107 X10^3/uL (150-400); Red Blood Cell Count 2.75 X10^6/uL (4.5-5.9); Red Cell Distribution Width 22.2 % (11.6-14.8); White Blood Cell Count 19.2 X10^3/uL (4.5-11.0)
[2020-11-17 06:00] LABS: Add Manual Diff / Slide Review YES
[2020-11-17 06:04] LABS: Alanine Aminotransferase 16 IU/L (<50); Albumin 3.2 g/dL (3.5-5.0); Albumin Globulin Ratio 1.3 (1.0-2.8); Alkaline Phosphatase 81 U/L (38-126); Aspartate Aminotransferase 26 IU/L (17-59); BUN Creatinine Ratio 27.1 (6-22); Blood Urea Nitrogen 26 mg/dL (9-20); Calcium 9.4 mg/dL (8.4-10.2); Carbon Dioxide 26 mmol/L (22-32); Chloride 105 mmol/L (98-107); Creatine Kinase < 20 U/L (55-170); Estimated Glomerular Filt Rate > 60.0 mL/min (>60); Globulin 2.5 g/dL (1.7-4.1); Glucose 146 mg/dL (80-110); HEMOLYSIS < 15 (0-50); Potassium 3.7 mmol/L (3.4-5.1); Sodium 139 mmol/L (137-145); Total Protein 5.7 g/dL (6.3-8.2)
[2020-11-17 06:08] LABS: Ketones (Beta-Hydroxybutyrate) 0.08 mmol/L (<0.27)
--- NOTE | 2020-11-17 06:08 | ED_ITS ---
HPI - General Adult <Mason Lawton - Last Filed: 11/20/20 03:33> General Chief complaint: Diabetic Problem Stated complaint: diabetes testing is high then low Time Seen by Provider: 11/17/20 05:33 Source: patient and family Mode of arrival: Wheelchair History of Present Illness HPI narrative: 70-year-old male former smoker currently receiving chemotherapy every 3 weeks (most recently last Tuesday) for lymphoma, AFib, type 2 diabetes, chronic back pain presents with his in the chief complaint of blood glucose since last night. He states that he has been checking his sugars and has found it to be anywhere between 400 and 700. He denies any change in medications nor any missed doses of his diabetic regimen. He feels generally fatigued but denies any fever or chills. He has had no runny nose, sore throat or cough. He denies any difficulty with urination or change in his bowel habits. He is a p oor historian but this is at baseline per his family Related Data Home Medications Medication Instructions Recorded Confirmed acyclovir 400 mg tablet 400 mg PO BID 10/04/20 11/17/20 entecavir 0.5 mg tablet 0.5 mg PO DAILY 10/04/20 11/17/20 finasteride 5 mg tablet 5 mg PO DAILY 10/04/20 11/17/20 furosemide 20 mg tablet 20 mg PO BID 10/04/20 11/17/20 metformin 500 mg tablet 1,000 mg PO BID 10/04/20 11/17/20 nadolol 40 mg tablet 40 mg PO DAILY 10/04/20 11/17/20 prochlorperazine maleate 10 mg 10 mg PO Q6HR PRN 10/04/20 11/17/20 tablet sitagliptin 25 mg tablet (Januvia) 25 mg PO DAILY 10/04/20 11/17/20 tacrolimus 0.5 mg capsule, 0.5 mg PO BID 10/04/20 11/17/20 immediate-release multivitamin 1 tab PO DAILY 11/05/20 11/17/20 omeprazole 20 mg capsule,delayed 40 mg PO DAILY 11/05/20 11/17/20 release ondansetron HCl 8 mg tablet 8 mg PO Q8H 11/05/20 11/17/20 digoxin 125 mcg (0.125 mg) tablet 125 mcg DAILY 11/17/20 11/17/20 diltiazem HCl 120 mg 120 mg PO DAILY 11/17/20 11/17/20 capsule,extended release 24 hr glimepiride 4 mg tablet 4 mg BID 11/17/20 11/17/20 Previous Rx's Medication Instructions Recorded docusate sodium 100 mg capsule 100 mg PO BID #30 cap 10/06/20 (DOK) levofloxacin 250 mg tablet 500 mg PO 0700 #10 tab 11/19/20 levofloxacin 500 mg tablet 500 mg PO DAILY #10 tab 11/19/20 metronidazole 500 mg tablet 500 mg PO TID #10 tab 11/19/20 metronidazole 500 mg tablet 500 mg PO TID #30 tab 11/19/20 (Flagyl) Allergies Allergy/AdvReac Type Severity Reaction Status Date / Time hydrocodone [HYDROCODONE] Allergy Severe SEVERE Verified 10/10/20 09:37 ITCHING tetracycline [TETRACYCLINE] Allergy Unknown Itching/hiv Verified 11/17/20 13:39 es ampicillin Allergy Verified 10/10/20 09:37 bee venom protein (honey bee) Allergy Verified 10/10/20 09:37 oxycodone [OXYCODONE] AdvReac Severe SEVERE Verified 10/10/20 09:37 ITCHING <Kristy Herrmann, DO - Last Filed: 11/17/20 14:44> History of Present Illness HPI narrative: 70-year-old male former smoker currently receiving chemotherapy every 3 weeks (most recently last Tuesday) for lymphoma, AFib, 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 He states that he has been checking his sugars and has found it to be anywhere between 400 and 700. He denies any change in medications nor any missed doses of his diabetic regimen. He feels generally fatigued but denies any fever or chills. He has had no runny nose, sore throat or cough. He denies any difficulty with urination or change in his bowel habits. He is a poor historian but this is at baseline per his family Review of Systems <Mason Lawton DO - Last Filed: 11/20/20 03:33> Review of Systems Narrative: GENERAL: See HPI HEENT: Denies sinus pain, ear pain, sore throat, difficulty swallowing, dizziness. RESPIRATORY: Denies dyspnea, cough, wheezing, hemoptysis, sputum. CARDIOVASCULAR: Denies chest pain, palpitations, orthopnea, edema, GASTROINTESTINAL: Denies nausea, vomiting, abdominal pain, diarrhea, const ipation, melena. : Denies dysuria, frequency, incontinence, hematuria, urinary retention. MUSCULOSKELETAL: denies weakness, joint pain, or bony pain SKIN: Denies rash, skin lesions, or other NEUROLOGIC: Denies weakness, headache, numbness, change in speech, confusion, seizures, incoordination. PSYCHIATRIC: No concerning psychosocial issues. 12 point review of systems is negative except for those stated above Patient History <Mason Lawton DO - Last Filed: 11/20/20 03:33> Medical History Atrial fibrillation B-cell lymphoma Chronic back pain greater than 3 months duration Diabetes mellitus History of cirrhosis of liver History of hepatitis C Non-insulin dependent type 2 diabetes mellitus Surgical History Liver transplant recipient Family History Mother Atrial fibrillation and flutter Father Chronic headaches Social History household members: spouse Smoking Status: Former smoker alcohol intake: never Smoking Status: Former smoker alcohol intake frequency: holidays/special occasions only Substance Use Type: does not use Exam <Mason Lawton DO - Last Filed: 11/20/20 03:33> Narrative Exam Narrative: GENERAL: [70] year old patient appears stated age. Chronically ill, slow to respond and poor historian but this is his baseline HEAD: Atraumatic. Normocephalic. EYES: Pupils equal round and reactive. Extraocular motions intact. No scleral icterus. No injection or drainage. ENT: Nose without bleeding, purulent drainage. Throat without erythema, tonsillar hypertrophy or exudate. Airway patent. NECK: Trachea midline. Non tender CARDIOVASCULAR: Regular rate and rhythm without murmurs, gallops, or rubs. RESPIRATORY: Clear to auscultation. Breath sounds equal bilaterally. No wheezes, rales, or rhonchi. GASTROINTESTINAL: Abdomen soft, non-tender, nondistended. EXTREMITIES: No edema or joint tenderness. BACK: Nontender without deformity or crepitance. No flank tenderness. NEURO: AOx3. SKIN: No rash or erythema of visible areas Initial Vital Signs Initial Vital Signs: Vital Signs Temperature 97.4 F L 11/17/20 05:42 Pulse Rate 69 11/17/20 05:42 Respiratory Rate 18 11/17/20 05:42 Blood Pressure 157/74 H 11/17/20 05:42 Pulse Oximetry 96 11/17/20 05:42 <Kristy Herrmann DO - Last Filed: 11/17/20 14:44> Initial Vital Signs Initial Vital Signs: Vital Signs Temperature 97.4 F L 11/17/20 05:42 Pulse Rate 69 11/17/20 05:42 Respiratory Rate 18 11/17/20 05:42 Blood Pressure 157/74 H 11/17/20 05:42 Pulse Oximetry 96 11/17/20 05:42 Course <Mason Lawton DO - Last Filed: 11/20/20 03:33> Orders Ordered: Discontinued Medications Acetaminophen (Acetaminophen 325 Mg Tablet) 650 mg PO Q6HR PRN PRN Reason: Fever/Mild Pain (1-3) Last Admin: 11/19/20 00:09 Dose: 650 mg Documented by: ADRIANNA Acyclovir (Acyclovir 400 Mg Tablet) 400 mg PO BID [facility] Last Admin: 11/19/20 08:23 Dose: 400 mg Documented by: Admin: 11/18/20 20:20 Dose: 400 mg Documented by: Admin: 11/18/20 08:33 Dose: 400 mg Documented by: Admin: 11/17/20 20:09 Dose: 400 mg Documented by: WENDY Bisacodyl (Bisacodyl 10 Mg Supp) 10 mg WV DAILY PRN PRN Reason: Constipation Digoxin (Digoxin 0.125 Mg Tablet) 0.125 mg PO DAILY@1700 [facility] Last Admin: 11/18/20 17:01 Dose: 0.125 mg Documented by: Admin: 11/17/20 17:09 Dose: 0.125 mg Documented by: WENDY Diltiazem HCl (Diltiazem Cd 120 Mg Cap) 120 mg PO DAILY [facility] Diltiazem HCl (Diltiazem Cd 120 Mg Cap) 120 mg PO DAILY [facility] Last Admin: 11/19/20 08:23 Dose: 120 mg Documented by: Admin: 11/18/20 08:33 Dose: 120 mg Documented by: Admin: 11/17/20 20:58 Dose: 120 mg Documented by: WENDY Docusate Sodium (Docusate 100 Mg Capsule) 100 mg PO BID [facility] Last Admin: 11/19/20 08:23 Dose: 100 mg Documented by: Admin: 11/18/20 20:20 Dose: 100 mg Documented by: Admin: 11/18/20 08:32 Dose: 100 mg Documented by: Admin: 11/17/20 20:09 Dose: 100 mg Documented by: WENDY Enoxaparin Sodium (Enoxaparin 40 Mg/0.4 Ml Syringe) 40 mg SUBCUT DAILY [facility] Last Admin: 11/19/20 08:23 Dose: 40 mg Documented by: Admin: 11/18/20 08:32 Dose: 40 mg Documented by: INOCENTE Finasteride (Finasteride 5 Mg Tablet) 5 mg PO BEDTIME [facility] Last Admin: 11/18/20 20:21 Dose: 5 mg Documented by: Admin: 11/17/20 20:10 Dose: 5 mg Documented by: WENDY Furosemide (Furosemide 20 Mg Tablet) 20 mg PO 0800,1700 [facility] Last Admin: 11/19/20 08:23 Dose: 20 mg Documented by: Admin: 11/18/20 17:01 Dose: 20 mg Documented by: Admin: 11/18/20 08:35 Dose: 20 mg Documented by: Admin: 11/17/20 17:06 Dose: 20 mg Documented by: WENDY Heparin Sodium (Porcine) (Heparin 500 Unit/5 Ml Port Flush) 500 unit IV PRN PRN PRN Reason: Flush Heparin Sodium (Porcine) (Heparin 500 Unit/5 Ml Port Flush) 500 unit IV PRN PRN PRN Reason: Flush Hydromorphone HCl (Hydromorphone 1 Mg Inj) 1 mg IV Q6H PRN PRN Reason: Pain, Moderate (4-6) Last Admin: 11/18/20 02:05 Dose: 1 mg Documented by: DEREK Sodium Chloride (Normal Saline 0.9%) 2,503.83 mls @ 834.61 mls/hr 30 ml/kg infuse over 3 hr (2503.83 ml) IV NOW ONE Stop: 11/17/20 09:11 Last Infusion: 11/17/20 10:00 Dose: 0 mls/hr Documented by: Admin: 11/17/20 06:28 Dose: 834.61 mls/hr Documented by: JASSI Ceftriaxone Sodium 1,000 mg/ (Sodium Chloride) 100 mls @ 200 mls/hr IV NOW ONE Stop: 11/17/20 06:53 Last Infusion: 11/17/20 07:35 Dose: 0 mls/hr Documented by: Admin: 11/17/20 07:03 Dose: 200 mls/hr Documented by: LAUREN Ondansetron HCl 8 mg/ Sodium (Chloride) 54 mls @ 216 mls/hr IV NOW ONE Stop: 11/17/20 07:22 Last Infusion: 11/17/20 08:03 Dose: 0 mls/hr Documented by: Admin: 11/17/20 07:40 Dose: 216 mls/hr Documented by: PRAVEEN Ceftriaxone Sodium 2,000 mg/ (Sodium Chloride) 100 mls @ 200 mls/hr IV Q24H [facility] Insulin Human Lispro (Insulin Lispro 100 Unit/Ml 3ml Vial) 0 unit SUBCUT ACHS [facility]; Protocol Last Admin: 11/19/20 07:56 Dose: 3 unit Documented by: INOCENTE Cosigned by: FLY Admin: 11/18/20 21:12 Dose: 3 unit Documented by: WENDY Wagner by: LION Admin: 11/18/20 17:01 Dose: 4 unit Documented by: WENDY Wagner by: LION Admin: 11/18/20 11:54 Dose: 4 unit Documented by: INOCENTE Ogdenigned by: JOSEPH Admin: 11/18/20 08:31 Dose: 2 unit Documented by: INOCENTE Ogdenigned by: JOSEPH Admin: 11/17/20 21:00 Dose: 1 unit Documented by: WENDY Wagner by: FLY Admin: 11/17/20 17:03 Dose: 2 unit Documented by: WENDY Wagner by: ECHO Levofloxacin (Levofloxacin 500 Mg Tablet) 500 mg PO 0700 [facility] Levofloxacin (Levofloxacin 250 Mg Tablet) 500 mg PO 0700 [facility] Last Admin: 11/19/20 06:30 Dose: 500 mg Documented by: Admin: 11/18/20 07:02 Dose: 500 mg Documented by: DEREK Magnesium Hydroxide (Magnesium Hydroxide 30 Ml Udc) 30 ml PO DAILY PRN PRN Reason: Constipation Metronidazole (Metronidazole 500 Mg Tablet) 500 mg PO TID [facility] Last Admin: 11/19/20 08:23 Dose: 500 mg Documented by: Admin: 11/18/20 20:21 Dose: 500 mg Documented by: Admin: 11/18/20 14:56 Dose: 500 mg Documented by: Admin: 11/18/20 08:33 Dose: 500 mg Documented by: Admin: 11/17/20 20:09 Dose: 500 mg Documented by: WENDY Morphine Sulfate (Morphine 4 Mg/Ml Inj) 4 mg IV NOW ONE Stop: 11/17/20 10:20 Last Admin: 11/17/20 10:24 Dose: 4 mg Documented by: PRAVEEN Morphine Sulfate (Morphine 4 Mg/Ml Inj) 4 mg IV Q4HR PRN PRN Reason: Pain, Severe (7-10) Last Admin: 11/17/20 20:10 Dose: 4 mg Documented by: WENDY Multivitamins (Multivitamin 1 Tablet) 1 tab PO DAILY [facility] Last Admin: 11/19/20 08:23 Dose: 1 tab Documented by: Admin: 11/18/20 08:33 Dose: 1 tab Documented by: INOCENTE Nadolol (Nadolol 40 Mg Tablet) 40 mg PO DAILY [facility] Last Admin: 11/19/20 08:23 Dose: 40 mg Documented by: Admin: 11/18/20 08:32 Dose: 40 mg Documented by: INOCENTE Naloxone HCl (Naloxone 0.4 Mg/Ml Vial) 0.2 mg IV Q2MIN PRN PRN Reason: Opiate Reversal Ondansetron HCl (Ondansetron 4 Mg/2 Ml Inj) 4 mg IV Q8HR PRN PRN Reason: Nausea And Vomiting Pantoprazole Sodium (Pantoprazole Dr 40 Mg Tablet) 40 mg PO 0700 [facility] Last Admin: 11/19/20 06:25 Dose: 40 mg Documented by: Admin: 11/18/20 07:02 Dose: 40 mg Documented by: DEREK Potassium Chloride (Potassium Chloride 20 Meq Tab) 40 meq PO NOW ONE Stop: 11/18/20 18:43 Last Admin: 11/18/20 20:20 Dose: 40 meq Documented by: WENDY Prednisone (Prednisone 20 Mg Tablet) 100 mg PO DAILY [facility] Last Admin: 11/18/20 08:33 Dose: 100 mg Documented by: INOCENTE Sennosides (Sennosides 8.6 Mg Tablet) 17.2 mg PO BEDTIME [facility] Last Admin: 11/18/20 20:21 Dose: 17.2 mg Documented by: Admin: 11/17/20 20:09 Dose: 17.2 mg Documented by: WENDY Sitagliptin Phosphate (Sitagliptin 50 Mg Tablet) 50 mg PO DAILY [facility] Last Admin: 11/19/20 08:23 Dose: 50 mg Documented by: Admin: 11/18/20 08:32 Dose: 50 mg Documented by: INOCENTE Sodium Biphosphate/Sodium Phosphate (Fleets Enema) 1 each WV PRN PRN PRN Reason: Constipation Sodium Chloride (Sodium Chloride 0.9% Flush) 10 ml IV PRN PRN PRN Reason: Flush Last Admin: 11/19/20 04:19 Dose: 10 ml Documented by: Admin: 11/18/20 05:21 Dose: 10 ml Documented by: Admin: 11/18/20 02:06 Dose: 10 ml Documented by: DEREK Sodium Chloride (Sodium Chloride 0.9% Flush) 10 ml IV BID [facility] Last Admin: 11/19/20 08:24 Dose: 10 ml Documented by: Admin: 11/18/20 20:21 Dose: 10 ml Documented by: Admin: 11/18/20 08:36 Dose: 10 ml Documented by: INOCENTE Tacrolimus (Tacrolimus 0.5 Mg Capsule) 0.5 mg PO BID [facility] Last Admin: 11/19/20 08:23 Dose: 0.5 mg Documented by: Admin: 11/18/20 20:21 Dose: 0.5 mg Documented by: Admin: 11/18/20 08:32 Dose: 0.5 mg Documented by: Admin: 11/17/20 20:09 Dose: 0.5 mg Documented by: WENDY Trimethoprim/Sulfamethoxazole (Trimeth/Sulfa 160/800 (Ds) Tablet) 1 tab PO BID [facility] Vital Signs Vital signs: Vital Signs - 8 hr 11/17/20 07:00 11/17/20 07:30 11/17/20 08:03 Pulse Rate 78 81 81 Respiratory Rate Blood Pressure 147/69 H 143/84 H Pulse Oximetry 98 97 11/17/20 08:30 11/17/20 08:50 11/17/20 09:00 Pulse Rate 81 80 86 Respiratory Rate 17 27 H 23 Blood Pressure 134/68 145/64 H Pulse Oximetry 97 95 93 11/17/20 09:30 11/17/20 10:00 11/17/20 10:30 Pulse Rate 85 75 78 Respiratory Rate 22 19 18 Blood Pressure 161/70 H 142/75 H 122/61 Pulse Oximetry 97 92 94 <Kristy Herrmann, - Last Filed: 11/17/20 14:44> Orders Ordered: Discontinued Medications Acetaminophen (Acetaminophen 325 Mg Tablet) 650 mg PO Q6HR PRN PRN Reason: Fever/Mild Pain (1-3) Last Admin: 11/19/20 00:09 Dose: 650 mg Documented by: ADRIANNA Acyclovir (Acyclovir 400 Mg Tablet) 400 mg PO BID [facility] Last Admin: 11/19/20 08:23 Dose: 400 mg Documented by: Admin: 11/18/20 20:20 Dose: 400 mg Documented by: Admin: 11/18/20 08:33 Dose: 400 mg Documented by: Admin: 11/17/20 20:09 Dose: 400 mg Documented by: WENDY Bisacodyl (Bisacodyl 10 Mg Supp) 10 mg WV DAILY PRN PRN Reason: Constipation Digoxin (Digoxin 0.125 Mg Tablet) 0.125 mg PO DAILY@1700 [facility] Last Admin: 11/18/20 17:01 Dose: 0.125 mg Documented by: Admin: 11/17/20 17:09 Dose: 0.125 mg Documented by: WENDY Diltiazem HCl (Diltiazem Cd 120 Mg Cap) 120 mg PO DAILY [facility] Diltiazem HCl (Diltiazem Cd 120 Mg Cap) 120 mg PO DAILY [facility] Last Admin: 11/19/20 08:23 Dose: 120 mg Documented by: Admin: 11/18/20 08:33 Dose: 120 mg Documented by: Admin: 11/17/20 20:58 Dose: 120 mg Documented by: WENDY Docusate Sodium (Docusate 100 Mg Capsule) 100 mg PO BID [facility] Last Admin: 11/19/20 08:23 Dose: 100 mg Documented by: Admin: 11/18/20 20:20 Dose: 100 mg Documented by: Admin: 11/18/20 08:32 Dose: 100 mg Documented by: Admin: 11/17/20 20:09 Dose: 100 mg Documented by: WENDY Enoxaparin Sodium (Enoxaparin 40 Mg/0.4 Ml Syringe) 40 mg SUBCUT DAILY [facility] Last Admin: 11/19/20 08:23 Dose: 40 mg Documented by: Admin: 11/18/20 08:32 Dose: 40 mg Documented by: INOCENTE Finasteride (Finasteride 5 Mg Tablet) 5 mg PO BEDTIME [facility] Last Admin: 11/18/20 20:21 Dose: 5 mg Documented by: Admin: 11/17/20 20:10 Dose: 5 mg Documented by: WENDY Furosemide (Furosemide 20 Mg Tablet) 20 mg PO 0800,1700 [facility] Last Admin: 11/19/20 08:23 Dose: 20 mg Documented by: Admin: 11/18/20 17:01 Dose: 20 mg Documented by: Admin: 11/18/20 08:35 Dose: 20 mg Documented by: Admin: 11/17/20 17:06 Dose: 20 mg Documented by: WENDY Heparin Sodium (Porcine) (Heparin 500 Unit/5 Ml Port Flush) 500 unit IV PRN PRN PRN Reason: Flush Heparin Sodium (Porcine) (Heparin 500 Unit/5 Ml Port Flush) 500 unit IV PRN PRN PRN Reason: Flush Hydromorphone HCl (Hydromorphone 1 Mg Inj) 1 mg IV Q6H PRN PRN Reason: Pain, Moderate (4-6) Last Admin: 11/18/20 02:05 Dose: 1 mg Documented by: DEREK Sodium Chloride (Normal Saline 0.9%) 2,503.83 mls @ 834.61 mls/hr 30 ml/kg infuse over 3 hr (2503.83 ml) IV NOW ONE Stop: 11/17/20 09:11 Last Infusion: 11/17/20 10:00 Dose: 0 mls/hr Documented by: Admin: 11/17/20 06:28 Dose: 834.61 mls/hr Documented by: JASSI Ceftriaxone Sodium 1,000 mg/ (Sodium Chloride) 100 mls @ 200 mls/hr IV NOW ONE Stop: 11/17/20 06:53 Last Infusion: 11/17/20 07:35 Dose: 0 mls/hr Documented by: Admin: 11/17/20 07:03 Dose: 200 mls/hr Documented by: LAUREN Ondansetron HCl 8 mg/ Sodium (Chloride) 54 mls @ 216 mls/hr IV NOW ONE Stop: 11/17/20 07:22 Last Infusion: 11/17/20 08:03 Dose: 0 mls/hr Documented by: Admin: 11/17/20 07:40 Dose: 216 mls/hr Documented by: PRAVEEN Ceftriaxone Sodium 2,000 mg/ (Sodium Chloride) 100 mls @ 200 mls/hr IV Q24H [facility] Insulin Human Lispro (Insulin Lispro 100 Unit/Ml 3ml Vial) 0 unit SUBCUT ACHS [facility]; Protocol Last Admin: 11/19/20 07:56 Dose: 3 unit Documented by: INOCENTE Ogdenigned by: FLY Admin: 11/18/20 21:12 Dose: 3 unit Documented by: WENDY Wagner by: LION Admin: 11/18/20 17:01 Dose: 4 unit Documented by: WENDY Wagner by: LION Admin: 11/18/20 11:54 Dose: 4 unit Documented by: INOCENTE Wagner by: JOSEPH Admin: 11/18/20 08:31 Dose: 2 unit Documented by: INOECNTE Wagner by: JOSEPH Admin: 11/17/20 21:00 Dose: 1 unit Documented by: WENDY Wagner by: FLY Admin: 11/17/20 17:03 Dose: 2 unit Documented by: WENDY Wagner by: ECHO Levofloxacin (Levofloxacin 500 Mg Tablet) 500 mg PO 0700 [facility] Levofloxacin (Levofloxacin 250 Mg Tablet) 500 mg PO 0700 [facility] Last Admin: 11/19/20 06:30 Dose: 500 mg Documented by: Admin: 11/18/20 07:02 Dose: 500 mg Documented by: DEREK Magnesium Hydroxide (Magnesium Hydroxide 30 Ml Udc) 30 ml PO DAILY PRN PRN Reason: Constipation Metronidazole (Metronidazole 500 Mg Tablet) 500 mg PO TID [facility] Last Admin: 11/19/20 08:23 Dose: 500 mg Documented by: Admin: 11/18/20 20:21 Dose: 500 mg Documented by: Admin: 11/18/20 14:56 Dose: 500 mg Documented by: Admin: 11/18/20 08:33 Dose: 500 mg Documented by: Admin: 11/17/20 20:09 Dose: 500 mg Documented by: WENDY Morphine Sulfate (Morphine 4 Mg/Ml Inj) 4 mg IV NOW ONE Stop: 11/17/20 10:20 Last Admin: 11/17/20 10:24 Dose: 4 mg Documented by: PRAVEEN Morphine Sulfate (Morphine 4 Mg/Ml Inj) 4 mg IV Q4HR PRN PRN Reason: Pain, Severe (7-10) Last Admin: 11/17/20 20:10 Dose: 4 mg Documented by: WENDY Multivitamins (Multivitamin 1 Tablet) 1 tab PO DAILY [facility] Last Admin: 11/19/20 08:23 Dose: 1 tab Documented by: Admin: 11/18/20 08:33 Dose: 1 tab Documented by: INOCENTE Nadolol (Nadolol 40 Mg Tablet) 40 mg PO DAILY [facility] Last Admin: 11/19/20 08:23 Dose: 40 mg Documented by: Admin: 11/18/20 08:32 Dose: 40 mg Documented by: INOCENTE Naloxone HCl (Naloxone 0.4 Mg/Ml Vial) 0.2 mg IV Q2MIN PRN PRN Reason: Opiate Reversal Ondansetron HCl (Ondansetron 4 Mg/2 Ml Inj) 4 mg IV Q8HR PRN PRN Reason: Nausea And Vomiting Pantoprazole Sodium (Pantoprazole Dr 40 Mg Tablet) 40 mg PO 0700 [facility] Last Admin: 11/19/20 06:25 Dose: 40 mg Documented by: Admin: 11/18/20 07:02 Dose: 40 mg Documented by: DEREK Potassium Chloride (Potassium Chloride 20 Meq Tab) 40 meq PO NOW ONE Stop: 11/18/20 18:43 Last Admin: 11/18/20 20:20 Dose: 40 meq Documented by: WENDY Prednisone (Prednisone 20 Mg Tablet) 100 mg PO DAILY [facility] Last Admin: 11/18/20 08:33 Dose: 100 mg Documented by: INOCENTE Sennosides (Sennosides 8.6 Mg Tablet) 17.2 mg PO BEDTIME [facility] Last Admin: 11/18/20 20:21 Dose: 17.2 mg Documented by: Admin: 11/17/20 20:09 Dose: 17.2 mg Documented by: WENDY Sitagliptin Phosphate (Sitagliptin 50 Mg Tablet) 50 mg PO DAILY [facility] Last Admin: 11/19/20 08:23 Dose: 50 mg Documented by: Admin: 11/18/20 08:32 Dose: 50 mg Documented by: INOCENTE Sodium Biphosphate/Sodium Phosphate (Fleets Enema) 1 each WV PRN PRN PRN Reason: Constipation Sodium Chloride (Sodium Chloride 0.9% Flush) 10 ml IV PRN PRN PRN Reason: Flush Last Admin: 11/19/20 04:19 Dose: 10 ml Documented by: Admin: 11/18/20 05:21 Dose: 10 ml Documented by: Admin: 11/18/20 02:06 Dose: 10 ml Documented by: DEREK Sodium Chloride (Sodium Chloride 0.9% Flush) 10 ml IV BID [facility] Last Admin: 11/19/20 08:24 Dose: 10 ml Documented by: Admin: 11/18/20 20:21 Dose: 10 ml Documented by: Admin: 11/18/20 08:36 Dose: 10 ml Documented by: INOCENTE Tacrolimus (Tacrolimus 0.5 Mg Capsule) 0.5 mg PO BID [facility] Last Admin: 11/19/20 08:23 Dose: 0.5 mg Documented by: Admin: 11/18/20 20:21 Dose: 0.5 mg Documented by: Admin: 11/18/20 08:32 Dose: 0.5 mg Documented by: Admin: 11/17/20 20:09 Dose: 0.5 mg Documented by: WENDY Trimethoprim/Sulfamethoxazole (Trimeth/Sulfa 160/800 (Ds) Tablet) 1 tab PO BID [facility] Vital Signs Vital signs: Vital Signs - 8 hr 11/17/20 07:00 11/17/20 07:30 11/17/20 08:03 Pulse Rate 78 81 81 Respiratory Rate Blood Pressure 147/69 H 143/84 H Pulse Oximetry 98 97 11/17/20 08:30 11/17/20 08:50 11/17/20 09:00 Pulse Rate 81 80 86 Respiratory Rate 17 27 H 23 Blood Pressure 134/68 145/64 H Pulse Oximetry 97 95 93 11/17/20 09:30 11/17/20 10:00 11/17/20 10:30 Pulse Rate 85 75 78 Respiratory Rate 22 19 18 Blood Pressure 161/70 H 142/75 H 122/61 Pulse Oximetry 97 92 94 Medical Decision Making <Mason Lawton DO - Last Filed: 11/20/20 03:33> Lab Data Result diagrams: 11/19/20 04:30 11/19/20 04:30 Labs: Lab Results 11/17/20 11/17/20 11/17/20 Range/Units 05:45 05:45 05:45 WBC 19.2 H (4.5-11.0) X10^3/uL RBC 2.75 L (4.5-5.9) X10^6/uL Hgb 9.3 L (13.5-17.5) g/dL Hct 27.0 L (41-53) % MCV 98.0 (80-100) fL MCH 33.7 (26-34) PG MCHC 34.4 (30-36) % RDW 22.2 H (11.6-14.8) % Plt Count 107 L (150-400) X10^3/uL Neut % (Auto) Not Reportable Lymph % (Auto) Not Reportable Traverse % (Auto) Not Reportable Eos % (Auto) Not Reportable Baso % (Auto) Not Reportable Lymph # (Auto) Not Reportable Traverse # (Auto) Not Reportable Baso # (Auto) Not Reportable Total Counted 100 Seg Neutrophils % 77.0 H (38-70) % Band Neutrophils % 14.0 H (3-7) % Lymphocytes % (Manual) 3.0 L (25-45) % Monocytes % (Manual) 6.0 (2-11) % Neutrophils # (Manual) 75769 H (6260-0332) /uL RBC Morphology See below Anisocytosis 3+ H Sodium 139 (137-145) mmol/L Potassium 3.7 (3.4-5.1) mmol/L Chloride 105 (98-107) mmol/L Carbon Dioxide 26 (22-32) mmol/L BUN 26 H (9-20) mg/dL Creatinine 0.96 (0.66-1.25) mg/dL Estimated GFR > 60.0 (>60) mL/min BUN/Creatinine Ratio 27.1 H (6-22) Glucose 146 H (80-110) mg/dL Lactate 4.6 H* (0.7-2.1) mmol/L Calcium 9.4 (8.4-10.2) mg/dL Total Bilirubin 1.0 (0.2-1.3) mg/dL AST 26 (17-59) IU/L ALT 16 (<50) IU/L Alkaline Phosphatase 81 (38-126) U/L Total Creatine Kinase < 20 L (55-170) U/L CK-MB (CK-2) TNP CK-MB (CK-2) Rel Index TNP Troponin I < 0.012 (0.01-0.034) ng/mL NT-Pro-B Natriuret Pep 1200 H (<125) pg/mL Total Protein 5.7 L (6.3-8.2) g/dL Albumin 3.2 L (3.5-5.0) g/dL Globulin 2.5 (1.7-4.1) g/dL Albumin/Globulin Ratio 1.3 (1.0-2.8) Lipase (23-300) U/L Procalcitonin 0.14 (<0.5) ng/mL Urine Color Urine Appearance Urine pH (4.5-8.0) Ur Specific [place] (1.000-1.035) Urine Protein (Negative) Urine Glucose (UA) (Negative) g/dL Urine Ketones (NEGATIVE) Urine Occult Blood (Negative) Urine Nitrate (Negative) Urine Bilirubin (NEGATIVE) Urine Urobilinogen (0.2) E.U./dL Ur Leukocyte Esterase (NEGATIVE) Urine RBC (0-5/HPF) Urine WBC (0-5/HPF) Urine Bacteria (None) Ur Culture Indicated? Micro UA Comment Ketones 0.08 (<0.27) mmol/L Chlamy pneumoniae PCR (Not Detect) Adenovirus (PCR) (Not Detect) B. pertussis DNA (PCR) (Not Detecte) B.parapertussis DNA PCR (Not Detecte) Coronavirus OC43 (PCR) (Not Detect) Coronavirus HKU1 (PCR) (Not Detect) Coronavirus 229E (PCR) (Not Detect) SARS-CoV-2 (PCR) Coronavirus NL63 (PCR) (Not Detect) Human Metapneumovir PCR (Not Detect) Influenza Type A (PCR) (Not Detect) Influenza Type B (PCR) (Not Detect) M. pneumoniae (PCR) (Not Detect) Parainfluenza 1 (PCR) (Not Detect) Parainfluenza 2 (PCR) (Not Detect) Parainfluenza 3 (PCR) (Not Detect) Parainfluenza 4 (PCR) (Not Detect) RSV (PCR) (Not Detect) Entero/Rhino (PCR) (Not Detect) 11/17/20 11/17/20 11/17/20 Range/Units 06:25 06:25 07:11 WBC (4.5-11.0) X10^3/uL RBC (4.5-5.9) X10^6/uL Hgb (13.5-17.5) g/dL Hct (41-53) % MCV (80-100) fL MCH (26-34) PG MCHC (30-36) % RDW (11.6-14.8) % Plt Count (150-400) X10^3/uL Neut % (Auto) Lymph % (Auto) [place] % (Auto) Eos % (Auto) Baso % (Auto) Lymph # (Auto) [place] # (Auto) Baso # (Auto) Total Counted Seg Neutrophils % (38-70) % Band Neutrophils % (3-7) % Lymphocytes % (Manual) (25-45) % Monocytes % (Manual) (2-11) % Neutrophils # (Manual) (9057-0184) /uL RBC Morphology Anisocytosis Sodium (137-145) mmol/L Potassium (3.4-5.1) mmol/L Chloride (98-107) mmol/L Carbon Dioxide (22-32) mmol/L BUN (9-20) mg/dL Creatinine (0.66-1.25) mg/dL Estimated GFR (>60) mL/min BUN/Creatinine Ratio (6-22) Glucose (80-110) mg/dL Lactate (0.7-2.1) mmol/L Calcium (8.4-10.2) mg/dL Total Bilirubin (0.2-1.3) mg/dL AST (17-59) IU/L ALT (<50) IU/L Alkaline Phosphatase (38-126) U/L Total Creatine Kinase (55-170) U/L CK-MB (CK-2) CK-MB (CK-2) Rel Index Troponin I (0.01-0.034) ng/mL NT-Pro-B Natriuret Pep (<125) pg/mL Total Protein (6.3-8.2) g/dL Albumin (3.5-5.0) g/dL Globulin (1.7-4.1) g/dL Albumin/Globulin Ratio (1.0-2.8) Lipase 57 (23-300) U/L Procalcitonin (<0.5) ng/mL Urine Color Urine Appearance Urine pH (4.5-8.0) Ur Specific [place] (1.000-1.035) Urine Protein (Negative) Urine Glucose (UA) (Negative) g/dL Urine Ketones (NEGATIVE) Urine Occult Blood (Negative) Urine Nitrate (Negative) Urine Bilirubin (NEGATIVE) Urine Urobilinogen (0.2) E.U./dL Ur Leukocyte Esterase (NEGATIVE) Urine RBC (0-5/HPF) Urine WBC (0-5/HPF) Urine Bacteria (None) Ur Culture Indicated? Micro UA Comment Ketones (<0.27) mmol/L Chlamy pneumoniae PCR Not detected (Not Detect) Adenovirus (PCR) Not detected (Not Detect) B. pertussis DNA (PCR) Not detected (Not Detecte) B.parapertussis DNA PCR Not detected (Not Detecte) Coronavirus OC43 (PCR) Not detected (Not Detect) Coronavirus HKU1 (PCR) Not detected (Not Detect) Coronavirus 229E (PCR) Not detected (Not Detect) SARS-CoV-2 (PCR) TNP Negative Coronavirus NL63 (PCR) Not detected (Not Detect) Human Metapneumovir PCR Not detected (Not Detect) Influenza Type A (PCR) Not detected (Not Detect) Influenza Type B (PCR) Not detected (Not Detect) M. pneumoniae (PCR) Not detected (Not Detect) Parainfluenza 1 (PCR) Not detected (Not Detect) Parainfluenza 2 (PCR) Not detected (Not Detect) Parainfluenza 3 (PCR) Not detected (Not Detect) Parainfluenza 4 (PCR) Not detected (Not Detect) RSV (PCR) Not detected (Not Detect) Entero/Rhino (PCR) Not detected (Not Detect) 11/17/20 11/17/20 Range/Units 07:40 08:12 WBC (4.5-11.0) X10^3/uL RBC (4.5-5.9) X10^6/uL Hgb (13.5-17.5) g/dL Hct (41-53) % MCV (80-100) fL MCH (26-34) PG MCHC (30-36) % RDW (11.6-14.8) % Plt Count (150-400) X10^3/uL Neut % (Auto) Lymph % (Auto) [place] % (Auto) Eos % (Auto) Baso % (Auto) Lymph # (Auto) [place] # (Auto) Baso # (Auto) Total Counted Seg Neutrophils % (38-70) % Band Neutrophils % (3-7) % Lymphocytes % (Manual) (25-45) % Monocytes % (Manual) (2-11) % Neutrophils # (Manual) (1023-1204) /uL RBC Morphology Anisocytosis Sodium (137-145) mmol/L Potassium (3.4-5.1) mmol/L Chloride (98-107) mmol/L Carbon Dioxide (22-32) mmol/L BUN (9-20) mg/dL Creatinine (0.66-1.25) mg/dL Estimated GFR (>60) mL/min BUN/Creatinine Ratio (6-22) Glucose (80-110) mg/dL Lactate 3.1 H (0.7-2.1) mmol/L Calcium (8.4-10.2) mg/dL Total Bilirubin (0.2-1.3) mg/dL AST (17-59) IU/L ALT (<50) IU/L Alkaline Phosphatase (38-126) U/L Total Creatine Kinase (55-170) U/L CK-MB (CK-2) CK-MB (CK-2) Rel Index Troponin I (0.01-0.034) ng/mL NT-Pro-B Natriuret Pep (<125) pg/mL Total Protein (6.3-8.2) g/dL Albumin (3.5-5.0) g/dL Globulin (1.7-4.1) g/dL Albumin/Globulin Ratio (1.0-2.8) Lipase (23-300) U/L Procalcitonin (<0.5) ng/mL Urine Color Yellow Urine Appearance Clear Urine pH 6.5 (4.5-8.0) Ur Specific [place] 1.015 (1.000-1.035) Urine Protein Negative (Negative) Urine Glucose (UA) Trace H (Negative) g/dL Urine Ketones Negative (NEGATIVE) Urine Occult Blood Negative (Negative) Urine Nitrate Negative (Negative) Urine Bilirubin Negative (NEGATIVE) Urine Urobilinogen 1.0 (0.2) E.U./dL Ur Leukocyte Esterase Negative (NEGATIVE) Urine RBC None seen (0-5/HPF) Urine WBC None seen (0-5/HPF) Urine Bacteria None seen (None) Ur Culture Indicated? Cult not indicated Micro UA Comment Microscopic normal Ketones (<0.27) mmol/L Chlamy pneumoniae PCR (Not Detect) Adenovirus (PCR) (Not Detect) B. pertussis DNA (PCR) (Not Detecte) B.parapertussis DNA PCR (Not Detecte) Coronavirus OC43 (PCR) (Not Detect) Coronavirus HKU1 (PCR) (Not Detect) Coronavirus 229E (PCR) (Not Detect) SARS-CoV-2 (PCR) Coronavirus NL63 (PCR) (Not Detect) Human Metapneumovir PCR (Not Detect) Influenza Type A (PCR) (Not Detect) Influenza Type B (PCR) (Not Detect) M. pneumoniae (PCR) (Not Detect) Parainfluenza 1 (PCR) (Not Detect) Parainfluenza 2 (PCR) (Not Detect) Parainfluenza 3 (PCR) (Not Detect) Parainfluenza 4 (PCR) (Not Detect) RSV (PCR) (Not Detect) Entero/Rhino (PCR) (Not Detect) Point of Care Testing Glucose POC 164 Point of care testing: Point of Care Testing Glucose POC 164 <Kristy Botnick, DO - Last Filed: 11/17/20 14:44> Lab Data Labs: Lab Results 11/17/20 11/17/20 11/17/20 Range/Units 05:45 05:45 05:45 WBC 19.2 H (4.5-11.0) X10^3/uL RBC 2.75 L (4.5-5.9) X10^6/uL Hgb 9.3 L (13.5-17.5) g/dL Hct 27.0 L (41-53) % MCV 98.0 (80-100) fL MCH 33.7 (26-34) PG MCHC 34.4 (30-36) % RDW 22.2 H (11.6-14.8) % Plt Count 107 L (150-400) X10^3/uL Neut % (Auto) Not Reportable Lymph % (Auto) Not Reportable [place] % (Auto) Not Reportable Eos % (Auto) Not Reportable Baso % (Auto) Not Reportable Lymph # (Auto) Not Reportable [place] # (Auto) Not Reportable Baso # (Auto) Not Reportable Total Counted 100 Seg Neutrophils % 77.0 H (38-70) % Band Neutrophils % 14.0 H (3-7) % Lymphocytes % (Manual) 3.0 L (25-45) % Monocytes % (Manual) 6.0 (2-11) % Neutrophils # (Manual) 27363 H (8515-9564) /uL RBC Morphology See below Anisocytosis 3+ H Sodium 139 (137-145) mmol/L Potassium 3.7 (3.4-5.1) mmol/L Chloride 105 (98-107) mmol/L Carbon Dioxide 26 (22-32) mmol/L BUN 26 H (9-20) mg/dL Creatinine 0.96 (0.66-1.25) mg/dL Estimated GFR > 60.0 (>60) mL/min BUN/Creatinine Ratio 27.1 H (6-22) Glucose 146 H (80-110) mg/dL Lactate 4.6 H* (0.7-2.1) mmol/L Calcium 9.4 (8.4-10.2) mg/dL Total Bilirubin 1.0 (0.2-1.3) mg/dL AST 26 (17-59) IU/L ALT 16 (<50) IU/L Alkaline Phosphatase 81 (38-126) U/L Total Creatine Kinase < 20 L (55-170) U/L CK-MB (CK-2) TNP CK-MB (CK-2) Rel Index TNP Troponin I < 0.012 (0.01-0.034) ng/mL NT-Pro-B Natriuret Pep 1200 H (<125) pg/mL Total Protein 5.7 L (6.3-8.2) g/dL Albumin 3.2 L (3.5-5.0) g/dL Globulin 2.5 (1.7-4.1) g/dL Albumin/Globulin Ratio 1.3 (1.0-2.8) Lipase (23-300) U/L Procalcitonin 0.14 (<0.5) ng/mL Urine Color Urine Appearance Urine pH (4.5-8.0) Ur Specific [place] (1.000-1.035) Urine Protein (Negative) Urine Glucose (UA) (Negative) g/dL Urine Ketones (NEGATIVE) Urine Occult Blood (Negative) Urine Nitrate (Negative) Urine Bilirubin (NEGATIVE) Urine Urobilinogen (0.2) E.U./dL Ur Leukocyte Esterase (NEGATIVE) Urine RBC (0-5/HPF) Urine WBC (0-5/HPF) Urine Bacteria (None) Ur Culture Indicated? Micro UA Comment Ketones 0.08 (<0.27) mmol/L Chlamy pneumoniae PCR (Not Detect) Adenovirus (PCR) (Not Detect) B. pertussis DNA (PCR) (Not Detecte) B.parapertussis DNA PCR (Not Detecte) Coronavirus OC43 (PCR) (Not Detect) Coronavirus HKU1 (PCR) (Not Detect) Coronavirus 229E (PCR) (Not Detect) SARS-CoV-2 (PCR) Coronavirus NL63 (PCR) (Not Detect) Human Metapneumovir PCR (Not Detect) Influenza Type A (PCR) (Not Detect) Influenza Type B (PCR) (Not Detect) M. pneumoniae (PCR) (Not Detect) Parainfluenza 1 (PCR) (Not Detect) Parainfluenza 2 (PCR) (Not Detect) Parainfluenza 3 (PCR) (Not Detect) Parainfluenza 4 (PCR) (Not Detect) RSV (PCR) (Not Detect) Entero/Rhino (PCR) (Not Detect) 11/17/20 11/17/20 11/17/20 Range/Units 06:25 06:25 07:11 WBC (4.5-11.0) X10^3/uL RBC (4.5-5.9) X10^6/uL Hgb (13.5-17.5) g/dL Hct (41-53) % MCV (80-100) fL MCH (26-34) PG MCHC (30-36) % RDW (11.6-14.8) % Plt Count (150-400) X10^3/uL Neut % (Auto) Lymph % (Auto) [place] % (Auto) Eos % (Auto) Baso % (Auto) Lymph # (Auto) [place] # (Auto) Baso # (Auto) Total Counted Seg Neutrophils % (38-70) % Band Neutrophils % (3-7) % Lymphocytes % (Manual) (25-45) % Monocytes % (Manual) (2-11) % Neutrophils # (Manual) (6457-6182) /uL RBC Morphology Anisocytosis Sodium (137-145) mmol/L Potassium (3.4-5.1) mmol/L Chloride (98-107) mmol/L Carbon Dioxide (22-32) mmol/L BUN (9-20) mg/dL Creatinine (0.66-1.25) mg/dL Estimated GFR (>60) mL/min BUN/Creatinine Ratio (6-22) Glucose (80-110) mg/dL Lactate (0.7-2.1) mmol/L Calcium (8.4-10.2) mg/dL Total Bilirubin (0.2-1.3) mg/dL AST (17-59) IU/L ALT (<50) IU/L Alkaline Phosphatase (38-126) U/L Total Creatine Kinase (55-170) U/L CK-MB (CK-2) CK-MB (CK-2) Rel Index Troponin I (0.01-0.034) ng/mL NT-Pro-B Natriuret Pep (<125) pg/mL Total Protein (6.3-8.2) g/dL Albumin (3.5-5.0) g/dL Globulin (1.7-4.1) g/dL Albumin/Globulin Ratio (1.0-2.8) Lipase 57 (23-300) U/L Procalcitonin (<0.5) ng/mL Urine Color Urine Appearance Urine pH (4.5-8.0) Ur Specific [place] (1.000-1.035) Urine Protein (Negative) Urine Glucose (UA) (Negative) g/dL Urine Ketones (NEGATIVE) Urine Occult Blood (Negative) Urine Nitrate (Negative) Urine Bilirubin (NEGATIVE) Urine Urobilinogen (0.2) E.U./dL Ur Leukocyte Esterase (NEGATIVE) Urine RBC (0-5/HPF) Urine WBC (0-5/HPF) Urine Bacteria (None) Ur Culture Indicated? Micro UA Comment Ketones (<0.27) mmol/L Chlamy pneumoniae PCR Not detected (Not Detect) Adenovirus (PCR) Not detected (Not Detect) B. pertussis DNA (PCR) Not detected (Not Detecte) B.parapertussis DNA PCR Not detected (Not Detecte) Coronavirus OC43 (PCR) Not detected (Not Detect) Coronavirus HKU1 (PCR) Not detected (Not Detect) Coronavirus 229E (PCR) Not detected (Not Detect) SARS-CoV-2 (PCR) TNP Negative Coronavirus NL63 (PCR) Not detected (Not Detect) Human Metapneumovir PCR Not detected (Not Detect) Influenza Type A (PCR) Not detected (Not Detect) Influenza Type B (PCR) Not detected (Not Detect) M. pneumoniae (PCR) Not detected (Not Detect) Parainfluenza 1 (PCR) Not detected (Not Detect) Parainfluenza 2 (PCR) Not detected (Not Detect) Parainfluenza 3 (PCR) Not detected (Not Detect) Parainfluenza 4 (PCR) Not detected (Not Detect) RSV (PCR) Not detected (Not Detect) Entero/Rhino (PCR) Not detected (Not Detect) 11/17/20 11/17/20 Range/Units 07:40 08:12 WBC (4.5-11.0) X10^3/uL RBC (4.5-5.9) X10^6/uL Hgb (13.5-17.5) g/dL Hct (41-53) % MCV (80-100) fL MCH (26-34) PG MCHC (30-36) % RDW (11.6-14.8) % Plt Count (150-400) X10^3/uL Neut % (Auto) Lymph % (Auto) [place] % (Auto) Eos % (Auto) Baso % (Auto) Lymph # (Auto) [place] # (Auto) Baso # (Auto) Total Counted Seg Neutrophils % (38-70) % Band Neutrophils % (3-7) % Lymphocytes % (Manual) (25-45) % Monocytes % (Manual) (2-11) % Neutrophils # (Manual) (1705-3703) /uL RBC Morphology Anisocytosis Sodium (137-145) mmol/L Potassium (3.4-5.1) mmol/L Chloride (98-107) mmol/L Carbon Dioxide (22-32) mmol/L BUN (9-20) mg/dL Creatinine (0.66-1.25) mg/dL Estimated GFR (>60) mL/min BUN/Creatinine Ratio (6-22) Glucose (80-110) mg/dL Lactate 3.1 H (0.7-2.1) mmol/L Calcium (8.4-10.2) mg/dL Total Bilirubin (0.2-1.3) mg/dL AST (17-59) IU/L ALT (<50) IU/L Alkaline Phosphatase (38-126) U/L Total Creatine Kinase (55-170) U/L CK-MB (CK-2) CK-MB (CK-2) Rel Index Troponin I (0.01-0.034) ng/mL NT-Pro-B Natriuret Pep (<125) pg/mL Total Protein (6.3-8.2) g/dL Albumin (3.5-5.0) g/dL Globulin (1.7-4.1) g/dL Albumin/Globulin Ratio (1.0-2.8) Lipase (23-300) U/L Procalcitonin (<0.5) ng/mL Urine Color Yellow Urine Appearance Clear Urine pH 6.5 (4.5-8.0) Ur Specific [place] 1.015 (1.000-1.035) Urine Protein Negative (Negative) Urine Glucose (UA) Trace H (Negative) g/dL Urine Ketones Negative (NEGATIVE) Urine Occult Blood Negative (Negative) Urine Nitrate Negative (Negative) Urine Bilirubin Negative (NEGATIVE) Urine Urobilinogen 1.0 (0.2) E.U./dL Ur Leukocyte Esterase Negative (NEGATIVE) Urine RBC None seen (0-5/HPF) Urine WBC None seen (0-5/HPF) Urine Bacteria None seen (None) Ur Culture Indicated? Cult not indicated Micro UA Comment Microscopic normal Ketones (<0.27) mmol/L Chlamy pneumoniae PCR (Not Detect) Adenovirus (PCR) (Not Detect) B. pertussis DNA (PCR) (Not Detecte) B.parapertussis DNA PCR (Not Detecte) Coronavirus OC43 (PCR) (Not Detect) Coronavirus HKU1 (PCR) (Not Detect) Coronavirus 229E (PCR) (Not Detect) SARS-CoV-2 (PCR) Coronavirus NL63 (PCR) (Not Detect) Human Metapneumovir PCR (Not Detect) Influenza Type A (PCR) (Not Detect) Influenza Type B (PCR) (Not Detect) M. pneumoniae (PCR) (Not Detect) Parainfluenza 1 (PCR) (Not Detect) Parainfluenza 2 (PCR) (Not Detect) Parainfluenza 3 (PCR) (Not Detect) Parainfluenza 4 (PCR) (Not Detect) RSV (PCR) (Not Detect) Entero/Rhino (PCR) (Not Detect) Point of Care Testing Glucose POC 164 Point of care testing: Point of Care Testing Glucose POC [address] scan - abdomen/pelvis: Radiologist's Impression: PROCEDURE: CT CHEST ABD PEL W CON INDICATIONS: fever, chills, LLQ pain TECHNIQUE: After the administration of intravenous contrast, 5 mm thick sections acquired from the lung apices to the symphysis. 5 mm coronal and sagittal reformats were performed, with additional 7 mm MIP reformats through the lungs. For radiation dose reduction, the following was used: automated exposure control, adjustment of mA and/or kV according to patient size. COMPARISON: [facility], CT, CT LUMBAR SPINE WO CON, 10/10/2020, 11:53. [facility], CT, CT THORACIC SPINE WO CON, 10/10/2020, 11:53. [facility], CT, PE STUDY (CTA CHEST), 06/25/2017, 14:43. [facility], CT, CT ABDOMEN PELVIS W CON, 07/03/2020, 15:40. [facility], CT, CT CHEST ABD PEL W CON, 09/11/2018, 11:22. FINDINGS: Image quality: Excellent. CHEST: Lungs and pleura: No acute airspace opacities. A 6 mm nodule is seen in the left lower lobe (series 3, image 177). There are scars and atelectasis in the right lower lobe No pleural effusions or pneumothorax. Central and peripheral airways appear patent and normal in caliber. Mediastinum: Heart size is normal. Mild coronary artery calcification. No pericardial effusion. No mediastinal or hilar adenopathy by size criteria. Thoracic aorta and central pulmonary arteries are normal in size. Esophagus is normal in caliber. Small hiatal hernia. Chest wall: No axillary or supraclavicular adenopathy by size criteria. Thyroid gland is normal. 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 Liver is normal in size. There are vague hepatic low-density nodules, less conspicuous when compared to 07/03/2020. Gallbladder surgically absent. Biliary system is non dilated. There is a 1.3 x 1.4 cm cystic mass in the tail of the pancreas. Mild stranding and edema in pancreatic tail. No pancreatic duct dilation. Spleen is mildly enlarged measuring 13.9 cm in length. There is a 1 cm indeterminate right adrenal nodule, stable in size. Mild left adrenal thickening. Kidneys demonstrate normal size and enhancement, without hydronephrosis. Peritoneum and bowel: Bowel loops demonstrate normal wall thickness and caliber. There are scattered colonic diverticula. Mild colonic thickening in sigmoid colon is noted, suggesting mild colitis or diverticulitis. A large amount of stool in colon. Normal appendix. No free fluid or air. Nodes and vessels: No retroperitoneal or mesenteric adenopathy by size criteria. Mild atherosclerotic calcification. Aorta and inferior vena cava are normal in size. Portal systemic venous shunts are seen in left upper abdomen with enlarged splenic vein, left renal vein, esophageal varices and gastric varices consistent with portal hype rtension. Miscellaneous: Small fat containing umbilical hernia rnias. PELVIS: Genitourinary: Bladder wall may be mildly thickened. Prostate is enlarged. Miscellaneous: No inguinal hernias or adenopathy. Bones: Severe compression fracture of L1 with posterior displacement of L1 vert ebral body causing [id number] central canal stenosis. Mild compression fracture of L2. Nonacute left 8th and 10th rib fractures are noted. There are numerous lytic lesions involving vertebral bodies, sternum, scapulae, bony pelvis and proximal humeri and femurs are consistent with metastatic disease. IMPRESSION: 1. Transplant liver with expected postsurgical changes. There are numerous small hypodensities in transplant liver, which are less conspicuous and decrease in size and number when compared to the last CT, consistent with treatment response. 2. Mild diverticulosis. Mild thickening of sigmoid colon suggesting mild diverticulitis or colitis. 3. Esophageal and gastric varices with prominent portal systemic venous collaterals in the left upper abdomen consistent with portal hypertension. 4. Stable 1.3 x 1.4 cm low-density nodule in the tail of the pancreas. Differential diagnoses include a benign cyst, pseudocyst, or low-grade malignancy such as IPMN. Subtle stranding is seen in the pancreatic tail and splenic hilum. Please correlate clinically for mild focal pancreatitis. 5. Stable 1 cm indeterminate right adrenal nodule. 6. Enlarged prostate. Mild bladder wall thickening may be secondary to chronic bladder outlet obstruction or mild cystitis. 7. A 6 mm nodule in the left lower lobe. Recommend a short-term follow-up CT in 3 months. 8. Severe compression fracture of L1 with posterior causing [id number] central canal stenosis. There is also mild compression fracture of L2. Both fractures are likely pathological fractures. 9. Numerous lytic bone lesions are consistent with metastatic disease. 10. Non-acute left 8th and 10th rib fractures. The preliminary result was discussed with Dr. Herrmann. Dictated by: Murray Hankins M.D. on 11/17/2020 at 8:37 Chest x-ray: Radiologist's Impression: PROCEDURE: XR CHEST 1V INDICATIONS: chest pain TECHNIQUE: One view of the chest was acquired. COMPARISON: [facility], , XR CHEST 1V, 10/10/2020, 10:01. FINDINGS: Surgical changes and devices: Right chest Port-A-Cath Lungs and pleura: Lungs are clear. No pleural effusions or pneumothorax. Mediastinum: Mediastinal contours appear normal. Heart size is normal. Bones and chest wall: No suspicious bony lesions. Overlying soft tissues appear unremarkable. IMPRESSION: No evidence acute pulmonary process. Comment: Final report is concordant with preliminary interpretation provided by [facility]. Dictated by: Mitch Kramer M.D. on 11/17/2020 at 7:57 MDM Narrative Medical decision making narrative: I received sign-out from Dr. Lawton seen evaluated him myself. He is overall in extremely poor historian. This seems as though he thought his glucose was elevated greater than 700 here it is 146. He was having some chest discomfort but then started complaining of left lower quadrant pain. CT does not have an explanation for left lower quadrant pain. He has leukocytosis of 19 and a lactic acid of 4.6 and afebrile. Concern for possible infection and sepsis. He is immunocompromised, he is a transplant patient along with chemotherapy. Certainly at risk for infection. However chest x-ray CT and urinalysis do not show any evidence of infection. He is empirically given Rocephin. He has no signs of meningitis or cellulitis. Abdominal pain is not pain out of proportion a low suspicion for ischemia. On 11/10/2020 leukocytosis of 3.8 today 19.2, unclear if he received any type of neupogen shot. However I am concerned for infection based on lactic acid an immunocompromised. Discussion with Dr. valdes. She agrees for admission. Patient is hemodynamically stable does not need any sort of severe sepsis criteria. He was given sepsis fluid for elevated lactic acid. Repeat lactic acid is 3.1. Discharge Plan Departure Patient Disposition: Admitted As Inpatient Clinical Impression: Sepsis Admit Date/Time: 11/17/20 10:39 Admit Provider: Jesica Valdes
[2020-11-17 06:12] LABS: Lactate (Lactic Acid) 4.6 mmol/L (0.7-2.1)
[2020-11-17 06:20] LABS: NT-proBNP (BNP-Adult 18+) 1200 pg/mL (<125); Troponin I < 0.012 ng/mL (0.01-0.034)
[2020-11-17 06:23] LABS: Procalcitonin 0.14 ng/mL (<0.5)
[2020-11-17] MEDS: SODIUM CHLORIDE 0.9% 834.61 ML IV (06:28)
[2020-11-17 06:38] LABS: Neutrophils Absolute Manual 17472 /uL (3000-5900); Total Cells Counted 100
[2020-11-17 06:39] LABS: Anisocytosis 3+
[2020-11-17] MEDS: cefTRIAXone 1,000 MG in SODIUM CHLORIDE 0.9% 100 ML 200 ML IV (07:03)
[2020-11-17 07:20] LABS: Lipase 57 U/L (23-300)
--- NOTE | 2020-11-17 07:21 | PC.NURSE ---
R chest implanted port accessed per protocol and one set of blood cultures drawn. Expectorated sputum sent to lab for culture. IV abx started after all cultures were drawn.
[2020-11-17] MEDS: ONDANSETRON 8 MG in SODIUM CHLORIDE 0.9% 50 ML 216 ML IV (07:40)
[2020-11-17 07:47] LABS: Reflexed Lactate in 2 Hours Y
[2020-11-17 07:59] LABS: Appearance Urine UA CLEAR; Bacteria Urine None Seen; Bilirubin Urine UA NEGATIVE (NEGATIVE); Color Urine UA YELLOW; Glucose Urine UA TRACE g/dL (Negative); Ketones Urine UA NEGATIVE (NEGATIVE); Leukocyte Esterase Urine UA NEGATIVE (NEGATIVE); Nitrite Urine UA NEGATIVE (Negative); Occult Blood Urine UA NEGATIVE (Negative); Protein Urine UA NEGATIVE (Negative); RBC Urine None Seen (0-5/HPF); Specific Gravity Urine UA 1.015 (1.000-1.035); WBC Urine None Seen (0-5/HPF); pH Urine UA 6.5 (4.5-8.0)
--- NOTE | 2020-11-17 08:02 | DI.CT.S_ITS ---
PROCEDURE: CT CHEST ABD PEL W CON INDICATIONS: fever, chills, LLQ pain TECHNIQUE: After the administration of intravenous contrast, 5 mm thick sections acquired from the lung apices to the symphysis. 5 mm coronal and sagittal reformats were performed, with additional 7 mm MIP reformats through the lungs. For radiation dose reduction, the following was used: automated exposure control, adjustment of mA and/or kV according to patient size. COMPARISON: [facility], CT, CT LUMBAR SPINE WO CON, 10/10/2020, 11:53. [facility], CT, CT THORACIC SPINE WO CON, 10/10/2020, 11:53. [facility], CT, PE STUDY (CTA CHEST), 06/25/2017, 14:43. [facility], CT, CT ABDOMEN PELVIS W CON, 07/03/2020, 15:40. [facility], CT, CT CHEST ABD PEL W CON, 09/11/2018, 11:22. FINDINGS: Image quality: Excellent. CHEST: Lungs and pleura: No acute airspace opacities. A 6 mm nodule is seen in the left lower lobe (series 3, image 177). There are scars and atelectasis in the right lower lobe No pleural effusions or pneumothorax. Central and peripheral airways appear patent and normal in caliber. Mediastinum: Heart size is normal. Mild coronary artery calcification. No pericardial effusion. No mediastinal or hilar adenopathy by size criteria. Thoracic aorta and central pulmonary arteries are normal in size. Esophagus is normal in caliber. Small hiatal hernia. Chest wall: No axillary or supraclavicular adenopathy by size criteria. Thyroid gland is normal. 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 Liver is normal in size. There are vague hepatic low-density nodules, less conspicuous when compared to 07/03/2020. Gallbladder surgically absent. Biliary system is non dilated. There is a 1.3 x 1.4 cm cystic mass in the tail of the pancreas. Mild stranding and edema in pancreatic tail. No pancreatic duct dilation. Spleen is mildly enlarged measuring 13.9 cm in length. There is a 1 cm indeterminate right adrenal nodule, stable in size. Mild left adrenal thickening. Kidneys demonstrate normal size and enhancement, without hydronephrosis. Peritoneum and bowel: Bowel loops demonstrate normal wall thickness and caliber. There are scattered colonic diverticula. Mild colonic thickening in sigmoid colon is noted, suggesting mild colitis or diverticulitis. A large amount of stool in colon. Normal appendix. No free fluid or air. Nodes and vessels: No retroperitoneal or mesenteric adenopathy by size criteria. Mild atherosclerotic calcification. Aorta and inferior vena cava are normal in size. Portal systemic venous shunts are seen in left upper abdomen with enlarged splenic vein, left renal vein, esophageal varices and gastric varices consistent with portal hypertension. Miscellaneous: Small fat containing umbilical hernia rnias. PELVIS: Genitourinary: Bladder wall may be mildly thickened. Prostate is enlarged. Miscellaneous: No inguinal hernias or adenopathy. Bones: Severe compression fracture of L1 with posterior displacement of L1 vertebral body causing [id number] central canal stenosis. Mild compression fracture of L2. Nonacute left 8th and 10th rib fractures are noted. There are numerous lytic lesions involving vertebral bodies, sternum, scapulae, bony pelvis and proximal humeri and femurs are consistent with metastatic disease. IMPRESSION: 1. Transplant liver with expected postsurgical changes. There are numerous small hypodensities in transplant liver, which are less conspicuous and decrease in size and number when compared to the last CT, consistent with treatment response. 2. Mild diverticulosis. Mild thickening of sigmoid colon suggesting mild diverticulitis or colitis. 3. Esophageal and gastric varices with prominent portal systemic venous collaterals in the left upper abdomen consistent with portal hypertension. 4. Stable 1.3 x 1.4 cm low-density nodule in the tail of the pancreas. Differential diagnoses include a benign cyst, pseudocyst, or low-grade malignancy such as IPMN. Subtle stranding is seen in the pancreatic tail and splenic hilum. Please correlate clinically for mild focal pancreatitis. 5. Stable 1 cm indeterminate right adrenal nodule. 6. Enlarged prostate. Mild bladder wall thickening may be secondary to chronic bladder outlet obstruction or mild cystitis. 7. A 6 mm nodule in the left lower lobe. Recommend a short-term follow-up CT in 3 months. 8. Severe compression fracture of L1 with posterior causing nyxtfkug-yh-zjfuiv central canal stenosis. There is also mild compression fracture of L2. Both fractures are likely pathological fractures. 9. Numerous lytic bone lesions are consistent with metastatic disease. 10. Non-acute left 8th and 10th rib fractures. The preliminary result was discussed with Dr. Herrmann. Dictated by: Murray Hankins M.D. on 11/17/2020 at 8:37 Approved by: Murray Hankins M.D. on 11/17/2020 at 9:08
[2020-11-17 08:06] LABS: Culture Indicated Urine Cult Not Indicated; Urine Comments Microscopic Normal
[2020-11-17 08:29] LABS: Lactate 2HR (Lactic Acid Rflx) 3.1 mmol/L (0.7-2.1)
[2020-11-17 08:57] LABS: Adenovirus Not Detected (Not Detect); B. parapertussis Not Detected (Not Detecte); Bordetella pertussis Not Detected (Not Detecte); Chlamydophila pneumoniae Not Detected (Not Detect); Coronavirus 229E Not Detected (Not Detect); Coronavirus HKU1 Not Detected (Not Detect); Coronavirus NL 63 Not Detected (Not Detect); Coronavirus OC43 Not Detected (Not Detect); Human Metapneumovirus Not Detected (Not Detect); Human Rhinovirus/Enterovirus Not Detected (Not Detect); Influenza A Not Detected (Not Detect); Influenza B Not Detected (Not Detect); Mycoplasma pneumoniae Not Detected (Not Detect); Parainfluenza Virus 1 Not Detected (Not Detect); Parainfluenza Virus 2 Not Detected (Not Detect); Parainfluenza Virus 3 Not Detected (Not Detect); Parainfluenza Virus 4 Not Detected (Not Detect); Respiratory Syncytial Virus Not Detected (Not Detect)
[2020-11-17 08:58] LABS: COVID19 - ADMIT (NP swab/PCR) Negative (Negative)
[2020-11-17] MEDS: MORPHINE 4 MG/ML INJ IV ×2 (10:24→20:10)
--- NOTE | 2020-11-17 12:17 | PC.NURSE ---
1150: Notified Dr. Valdes, patient arrived to room 210 from ED. Tele placed on arrival, high fall risk precautions initiated.
--- NOTE | 2020-11-17 16:33 | PM.HP.1 ---
History of Present Illness History of Present Illness Chief complaint: diabetes testing is high then low Narrative: The patient is a 70 y/o male currently undergoing treatment for stage 4 B -cell lymphoma. Patient started prednisone 100 mg daily 5 days ago. Since that time his blood sugars have been irratic from being very high to low. He and his presented for evaluation of his blood sugars. The patient also has chronic abdominal pain, back pain related to a compression fracture reports feeling cold and was also noted to have an elevated lactate. The patient has mild shortness of breath but other than back and abdominal pain has no other complaints. He notes watery stool but no hemetemsis, melena, or bright red blood per rectum. Patient denies fever, but reports feeling cold. Patient is s/p liver transplant as well. He underwent CT of abd/chest/ pelvis, which revealed mild diverticulosis, mild thickening of the colon to suggest diverticulitis, esophageal and gastric varices c/w portal hypertension, a stable low density nodule of the tail of the pancreas, adrenal nodule, enlarged prostate, mild bladder wall thickening, mumerous lytic bone lesions, non acute fracture of the 9th and 10th ribs, severe complression fracture of L1 causes moderate to severe cental canal stenosis. Patient is awake and alert and has no complaints except for abdominal pain. Patient had an elevated lactate of 4, repeat 3.1 and was admitted to the hosptial for further evaluation. Patient History Medical History Atrial fibrillation B-cell lymphoma Chronic back pain greater than 3 months duration Diabetes mellitus History of cirrhosis of liver History of hepatitis C Non-insulin dependent type 2 diabetes mellitus Surgical History Liver transplant recipient Family & Social History Family History Mother Atrial fibrillation and flutter Father Chronic headaches Social History: household members spouse,family Safety & Behavioral: Feels Safe in Current Yes Environment Been Physically Hurt or No Threatened By a Person Suicidal Ideation Description None Tobacco & Substance use: Smoking Status Former smoker alcohol intake never alcohol intake frequency holiday/special occasion Substance Use Type does not use Meds Home Medications and Allergies Home Medications Medication Instructions Recorded Confirmed Type acyclovir 400 mg tablet 400 mg PO BID 10/04/20 11/17/20 History entecavir 0.5 mg tablet 0.5 mg PO DAILY 10/04/20 11/17/20 History finasteride 5 mg tablet 5 mg PO DAILY 10/04/20 11/17/20 History furosemide 20 mg tablet 20 mg PO BID 10/04/20 11/17/20 History metformin 500 mg tablet 1,000 mg PO BID 10/04/20 11/17/20 History nadolol 40 mg tablet 40 mg PO DAILY 10/04/20 11/17/20 History prochlorperazine maleate 10 mg 10 mg PO Q6HR PRN 10/04/20 11/17/20 History tablet sitagliptin 25 mg tablet (Januvia) 25 mg PO DAILY 10/04/20 11/17/20 History tacrolimus 0.5 mg capsule, 0.5 mg PO BID 10/04/20 11/17/20 History immediate-release docusate sodium 100 mg capsule 100 mg PO BID #30 cap 10/06/20 11/17/20 Rx ([facility]) levofloxacin 250 mg tablet 750 mg PO DAILY #9 tab 10/06/20 11/17/20 Rx multivitamin 1 tab PO DAILY 11/05/20 11/17/20 History omeprazole 20 mg capsule,delayed 40 mg PO DAILY 11/05/20 11/17/20 History release ondansetron HCl 8 mg tablet 8 mg PO Q8H 11/05/20 11/17/20 History prednisone 50 mg tablet 100 mg PO DAILY 11/05/20 11/17/20 History sulfamethoxazole 800 1 tab PO Q12H 11/05/20 11/17/20 History mg-trimethoprim 160 mg tablet digoxin 125 mcg (0.125 mg) tablet 125 mcg DAILY 11/17/20 11/17/20 History diltiazem HCl 120 mg 120 mg PO DAILY 11/17/20 11/17/20 History capsule,extended release 24 hr glimepiride 4 mg tablet 4 mg BID 11/17/20 11/17/20 History Allergies Allergy/AdvReac Type Severity Reaction Status Date / Time hydrocodone [HYDROCODONE] Allergy Severe SEVERE Verified 10/10/20 09:37 ITCHING tetracycline [TETRACYCLINE] Allergy Unknown Itching/hiv Verified 11/17/20 13:39 es ampicillin Allergy Verified 10/10/20 09:37 bee venom protein (honey bee) Allergy Verified 10/10/20 09:37 oxycodone [OXYCODONE] AdvReac Severe SEVERE Verified 10/10/20 09:37 ITCHING Review of Systems Review of Systems Narrative: 10 point review of system negative except as above Exam Vital Signs (past 8 hours): - 11/17/20 08:50 11/17/20 09:00 11/17/20 09:30 Temperature Pulse Rate 80 86 85 Respiratory Rate 27 H 23 22 Blood Pressure 134/68 145/64 H 161/70 H Pulse Oximetry 95 93 97 11/17/20 10:00 11/17/20 10:30 11/17/20 11:00 Temperature Pulse Rate 75 78 76 Respiratory Rate 19 18 20 Blood Pressure 142/75 H 122/61 138/73 Pulse Oximetry 92 94 92 11/17/20 11:40 11/17/20 11:49 11/17/20 15:30 Temperature 96.8 F L 98.1 F Pulse Rate 64 64 70 Respiratory Rate 16 16 18 Blood Pressure 142/71 H 142/71 H 141/71 H Pulse Oximetry 95 95 93 Oxygen Delivery Method Room Air Oxygen Flow Rate 0 Narrative Exam Narrative: ill appearing male lying in bed Const Other: pale ill appearing male HENRI Other: NC/AT Eyes Other: PERRLA, EOMI, Oropharynx Clear Neck Other: Neck supple Chest Other: chema cath in right upper chest Resp Other: Lungs: clear to auscultation Cardio Other: RRRnl sl S2 #/6 MIKY GI Other: soft/ mildly tender in the left lower quadrant, surgical scars noted, no board like rigidity, no palable masses Extrem Other: 2+ edema Psych Other: no confusion or hallucinations Objective Labs Result Diagrams: 11/17/20 05:45 11/17/20 05:45 Labs: Laboratory Results - last 24 hr 11/17/20 11/17/20 11/17/20 05:45 05:45 05:45 WBC 19.2 H RBC 2.75 L Hgb 9.3 L Hct 27.0 L MCV 98.0 MCH 33.7 MCHC 34.4 RDW 22.2 H Plt Count 107 L Neut % (Auto) Not Reportable Lymph % (Auto) Not Reportable [place] % (Auto) Not Reportable Eos % (Auto) Not Reportable Baso % (Auto) Not Reportable Lymph # (Auto) Not Reportable [place] # (Auto) Not Reportable Baso # (Auto) Not Reportable Total Counted 100 Seg Neutrophils % 77.0 H Band Neutrophils % 14.0 H Lymphocytes % (Manual) 3.0 L Monocytes % (Manual) 6.0 Neutrophils # (Manual) 20133 H RBC Morphology See below Anisocytosis 3+ H Sodium 139 Potassium 3.7 Chloride 105 Carbon Dioxide 26 BUN 26 H Creatinine 0.96 Estimated GFR > 60.0 BUN/Creatinine Ratio 27.1 H Glucose 146 H Lactate 4.6 H* Calcium 9.4 Total Bilirubin 1.0 AST 26 ALT 16 Alkaline Phosphatase 81 Total Creatine Kinase < 20 L CK-MB (CK-2) TNP CK-MB (CK-2) Rel Index TNP Troponin I < 0.012 NT-Pro-B Natriuret Pep 1200 H Total Protein 5.7 L Albumin 3.2 L Globulin 2.5 Albumin/Globulin Ratio 1.3 Lipase Procalcitonin 0.14 Urine Color Urine Appearance Urine pH Ur Specific [place] Urine Protein Urine Glucose (UA) Urine Ketones Urine Occult Blood Urine Nitrate Urine Bilirubin Urine Urobilinogen Ur Leukocyte Esterase Urine RBC Urine WBC Urine Bacteria Ur Culture Indicated? Micro UA Comment Ketones 0.08 Chlamy pneumoniae PCR Adenovirus (PCR) B. pertussis DNA (PCR) B.parapertussis DNA PCR Coronavirus OC43 (PCR) Coronavirus HKU1 (PCR) Coronavirus 229E (PCR) SARS-CoV-2 (PCR) Coronavirus NL63 (PCR) Human Metapneumovir PCR Influenza Type A (PCR) Influenza Type B (PCR) M. pneumoniae (PCR) Parainfluenza 1 (PCR) Parainfluenza 2 (PCR) Parainfluenza 3 (PCR) Parainfluenza 4 (PCR) RSV (PCR) Entero/Rhino (PCR) 11/17/20 11/17/20 11/17/20 06:25 06:25 07:11 WBC RBC Hgb Hct MCV MCH MCHC RDW Plt Count Neut % (Auto) Lymph % (Auto) [place] % (Auto) Eos % (Auto) Baso % (Auto) Lymph # (Auto) [place] # (Auto) Baso # (Auto) Total Counted Seg Neutrophils % Band Neutrophils % Lymphocytes % (Manual) Monocytes % (Manual) Neutrophils # (Manual) RBC Morphology Anisocytosis Sodium Potassium Chloride Carbon Dioxide BUN Creatinine Estimated GFR BUN/Creatinine Ratio Glucose Lactate Calcium Total Bilirubin AST ALT Alkaline Phosphatase Total Creatine Kinase CK-MB (CK-2) CK-MB (CK-2) Rel Index Troponin I NT-Pro-B Natriuret Pep Total Protein Albumin Globulin Albumin/Globulin Ratio Lipase 57 Procalcitonin Urine Color Urine Appearance Urine pH Ur Specific [place] Urine Protein Urine Glucose (UA) Urine Ketones Urine Occult Blood Urine Nitrate Urine Bilirubin Urine Urobilinogen Ur Leukocyte Esterase Urine RBC Urine WBC Urine Bacteria Ur Culture Indicated? Micro UA Comment Ketones Chlamy pneumoniae PCR Not detected Adenovirus (PCR) Not detected B. pertussis DNA (PCR) Not detected B.parapertussis DNA PCR Not detected Coronavirus OC43 (PCR) Not detected Coronavirus HKU1 (PCR) Not detected Coronavirus 229E (PCR) Not detected SARS-CoV-2 (PCR) TNP Negative Coronavirus NL63 (PCR) Not detected Human Metapneumovir PCR Not detected Influenza Type A (PCR) Not detected Influenza Type B (PCR) Not detected M. pneumoniae (PCR) Not detected Parainfluenza 1 (PCR) Not detected Parainfluenza 2 (PCR) Not detected Parainfluenza 3 (PCR) Not detected Parainfluenza 4 (PCR) Not detected RSV (PCR) Not detected Entero/Rhino (PCR) Not detected 11/17/20 11/17/20 07:40 08:12 WBC RBC Hgb Hct MCV MCH MCHC RDW Plt Count Neut % (Auto) Lymph % (Auto) [place] % (Auto) Eos % (Auto) Baso % (Auto) Lymph # (Auto) [place] # (Auto) Baso # (Auto) Total Counted Seg Neutrophils % Band Neutrophils % Lymphocytes % (Manual) Monocytes % (Manual) Neutrophils # (Manual) RBC Morphology Anisocytosis Sodium Potassium Chloride Carbon Dioxide BUN Creatinine Estimated GFR BUN/Creatinine Ratio Glucose Lactate 3.1 H Calcium Total Bilirubin AST ALT Alkaline Phosphatase Total Creatine Kinase CK-MB (CK-2) CK-MB (CK-2) Rel Index Troponin I NT-Pro-B Natriuret Pep Total Protein Albumin Globulin Albumin/Globulin Ratio Lipase Procalcitonin Urine Color Yellow Urine Appearance Clear Urine pH 6.5 Ur Specific [place] 1.015 Urine Protein Negative Urine Glucose (UA) Trace H Urine Ketones Negative Urine Occult Blood Negative Urine Nitrate Negative Urine Bilirubin Negative Urine Urobilinogen 1.0 Ur Leukocyte Esterase Negative Urine RBC None seen Urine WBC None seen Urine Bacteria None seen Ur Culture Indicated? Cult not indicated Micro UA Comment Microscopic normal Ketones Chlamy pneumoniae PCR Adenovirus (PCR) B. pertussis DNA (PCR) B.parapertussis DNA PCR Coronavirus OC43 (PCR) Coronavirus HKU1 (PCR) Coronavirus 229E (PCR) SARS-CoV-2 (PCR) Coronavirus NL63 (PCR) Human Metapneumovir PCR Influenza Type A (PCR) Influenza Type B (PCR) M. pneumoniae (PCR) Parainfluenza 1 (PCR) Parainfluenza 2 (PCR) Parainfluenza 3 (PCR) Parainfluenza 4 (PCR) RSV (PCR) Entero/Rhino (PCR) Assessment & Plan Assessment & Plan narrative: 70 y/o male with stage 4 B-cell Lymphoma admitted with chronic abdominal pain, erratic blood sugars -CT Abd reveals mild diverticulitis -Patient with chronic abdominal pain secondary to lymphoma -suspect elevated WBC related to recent steroids -on antibiotic suppressive therapy -constipation on abdominal CT -Will continue start levofloxacin/flagyl for diverituculitis -hold bactrim for now -follow abdominal pain -continue pain medications -bowel program Erratic Blood Sugar/Known type 2 diabetic -likely related to steroids for lymphoma -on five days prednisone -will treat with sliding scale/hold oral meds except januvia for now Atrial Fibrillation continue cardizem BPH -continue finasteride Liver Transplant -continue tacrolimus continue lasix Will start lovenox for DVT prophylaxis Patient has living will which reports DNR, but he would like to be a full code at this time I have utilized all available methods to review, update, and confirm current medications.
[2020-11-17] MEDS: INSULIN LISPRO 100 UNIT/ML 3ML VIAL SUBCUT ×2 (17:03→21:00)
[2020-11-17] MEDS: FUROSEMIDE 20 MG TABLET PO (17:06)
[2020-11-17] MEDS: DIGOXIN 0.125 MG TABLET PO (17:09)
[2020-11-17] MEDS: metroNIDAZOLE 500 MG TABLET PO (20:09)
[2020-11-17] MEDS: SENNOSIDES 8.6 MG TABLET 17.2 MG PO (20:09)
[2020-11-17] MEDS: ACYCLOVIR 400 MG TABLET PO (20:09)
[2020-11-17] MEDS: TACROLIMUS 0.5 MG CAPSULE PO (20:09)
[2020-11-17] MEDS: DOCUSATE 100 MG CAPSULE PO (20:09)
[2020-11-17] MEDS: FINASTERIDE 5 MG TABLET PO (20:10)
[2020-11-17] MEDS: dilTIAZem CD 120 MG CAP PO (20:58)
[2020-11-18] VITALS (8 sets, daily range): BP systolic 110–133; BP diastolic 67–81; PULSE 72–101; RESP 16–18; TEMP 36–36.7; O2SAT 94–97
[2020-11-18] MEDS: HYDROMORPHONE 1 MG INJ IV (02:05)
[2020-11-18] MEDS: SODIUM CHLORIDE 0.9% FLUSH 10 ML IV ×4 (02:06→20:21)
--- NOTE | 2020-11-18 02:21 | PC.NURSE ---
Patient is alert and oriented except did not know month, day of month or day of week. Breath sounds CTA with RA sat of 95%. HR irregular with telemetry reading of afib CVR. Denies nausea. BT present and abdomen is soft. Denies abdominal tenderness with palpation but does complain of 5/10 achy lower abdominal pain radiating to left flank; medicated with IV Dilaudid. Is able to turn himself in bed. Up to bathroom with walker and 1 assist; needs reminders to slow down when walking. Wearing bilateral calf SCD's. 2+ bilateral LE edema. Fall risk score is high and bed alarm is activated.
[2020-11-18 05:45] LABS: BUN Creatinine Ratio 28.6 (6-22); Blood Urea Nitrogen 18 mg/dL (9-20); Calcium 8.2 mg/dL (8.4-10.2); Carbon Dioxide 26 mmol/L (22-32); Chloride 108 mmol/L (98-107); Estimated Glomerular Filt Rate > 60.0 mL/min (>60); Glucose 208 mg/dL (80-110); HEMOLYSIS < 15 (0-50); Potassium 3.3 mmol/L (3.4-5.1); Sodium 137 mmol/L (137-145)
[2020-11-18 05:48] LABS: Hematocrit 22.6 % (41-53); Hemoglobin 7.7 g/dL (13.5-17.5); Mean Corpuscular Hemoglobin 33.4 PG (26-34); Mean Corpuscular Volume 98.4 fL (80-100); Platelet Count 74 X10^3/uL (150-400); Red Blood Cell Count 2.29 X10^6/uL (4.5-5.9); Red Cell Distribution Width 21.4 % (11.6-14.8); White Blood Cell Count 12.2 X10^3/uL (4.5-11.0)
[2020-11-18] MEDS: PANTOPRAZOLE DR 40 MG TABLET PO (07:02)
[2020-11-18] MEDS: levoFLOXacin 250 MG TABLET 500 MG PO (07:02)
[2020-11-18 07:06] LABS: Add Manual Diff / Slide Review YES
[2020-11-18 07:24] LABS: Anisocytosis 2+; Macrocytosis 1+; Neutrophils Absolute Manual 11346 /uL (3000-5900); Total Cells Counted 100
[2020-11-18] MEDS: INSULIN LISPRO 100 UNIT/ML 3ML VIAL SUBCUT ×4 (08:31→21:12)
[2020-11-18] MEDS: SITAGLIPTIN 50 MG TABLET PO (08:32)
[2020-11-18] MEDS: DOCUSATE 100 MG CAPSULE PO ×2 (08:32→20:20)
[2020-11-18] MEDS: ENOXAPARIN 40 MG/0.4 ML SYRINGE SUBCUT (08:32)
[2020-11-18] MEDS: TACROLIMUS 0.5 MG CAPSULE PO ×2 (08:32→20:21)
[2020-11-18] MEDS: metroNIDAZOLE 500 MG TABLET PO ×3 (08:33→20:21)
[2020-11-18] MEDS: predniSONE 20 MG TABLET 100 MG PO (08:33)
[2020-11-18] MEDS: dilTIAZem CD 120 MG CAP PO (08:33)
[2020-11-18] MEDS: ACYCLOVIR 400 MG TABLET PO ×2 (08:33→20:20)
[2020-11-18] MEDS: MULTIVITAMIN 1 TABLET 1 TAB PO (08:33)
[2020-11-18] MEDS: FUROSEMIDE 20 MG TABLET PO ×2 (08:35→17:01)
--- NOTE | 2020-11-18 09:15 | PT.IIE ---
Medical History (Last Reviewed 11/17/20 @ 16:39 by Jesica Valdes MD) Atrial fibrillation B-cell lymphoma Chronic back pain greater than 3 months duration Diabetes mellitus History of cirrhosis of liver History of hepatitis C Non-insulin dependent type 2 diabetes mellitus Physical Therapy Inpatient Evaluation/Re-Eval M1 PT/OT-IP Prior Functional Status Start: 11/18/20 11:34 Freq: NEEDED Status: Active Protocol: Document 11/18/20 09:15 AB (Rec: 11/18/20 11:58 AB [id number]) Medical Review Prior Functional Status Medical History Reviewed Yes Communication able to make needs known Mobility and Gait pt stated that he is modified independent with all mobilities and ambulation using SPC Social History Household Members spouse Living Arrangements House Number of Floors (Floors) One Floor Number of Stairs To Enter/Railing? no steps to enter Home Environment Standard Height Toilet,Walk in Shower Home Equipment Straight Cane,Hand Held Shower ,Grab Bars Near Toilet,Grab Bars In Shower M2 PT-IP Current Condition Start: 11/18/20 11:34 Freq: NEEDED Status: Active Protocol: Document 11/18/20 09:15 AB (Rec: 11/18/20 11:58 AB [email or web address]) Physical Therapy Current Condition Current Condition Evaluation Date 11/18/20 Treatment Diagnosis sepsis; lymphoma; difficulty in walking Onset Date 11/17/20 Precautions Other Precautions falls M3 PT-IP Subjective Start: 11/18/20 11:34 Freq: NEEDED Status: Active Protocol: Document 11/18/20 09:15 AB (Rec: 11/18/20 11:58 [email or web address] Subjective Physical Therapy Visit Type Type Initial Evaluation Visit Start Time 09:15 Visit Stop Time 09:40 Total Visit Minutes 25 Number of C[facility]ER Visits 0 Therapy Pain Assessment Pain Present Pain Present Denied Pain M4 PT-IP Mobility and Gait Start: 11/18/20 11:34 Freq: NEEDED Status: Active Protocol: Document 11/18/20 09:15 AB (Rec: 11/18/20 11:58 AB [id number]) PT-Bed Mobility Assessment Supine to Sit Supine to Sit Standby Assistance,Head of Bed Elevated Sit to Supine Sit to Supine Standby Assistance PT-Transfer Assessment Sit to and From Stand Sit to and from Stand Standby Assistance,Contact Guard Assistance,Use of Upper Extremities Equipment Transfer Assistive Device Gait Belt,Front Wheeled Walker Orthotic/Prosthetic Devices or Brace: No Transfers Transfer Destination Toilet Transfer Technique ambulated using FWW Transfer Ability Level of Assist Standby Assistance,Contact Guard Assistance Comments Mobility Comments pt is impulsive and directs his own care. completed supine to sit SBA. stated that he has to use the toilet and completed sit to stand SBA to CGA and ambulated to the toilet using FWW SBA to CGA. pt is impulsive and presents with unsteady gait. completed ambulated back to bed using FWW and refused further mobilty. completed sit to supine SBA. positioned in bed. call ligth and table placed within reach. Gait Assessment Gait Gait Assistance Required: Standby Assistance,Contact Guard Assist Distance (Feet) 12 Able to Maintain Weight Bearing Status Yes During Gait Assistive Devices Assistive Device Gait Belt,Front Wheeled Walker Orthotic/Prosthetic Devices or Brace: No Gait Deviations General Gait Pattern Decreased Stride Length, Decreased Feet Clearance Factors Limiting Gait Function Factors Limiting Gait Function Decreased Activity Tolerance, Decreased Strength,Difficulty Following Directions Comments Gait Comments pls refer to mobility section for details PT-Balance Assessment Sitting Balance and Reactions Static Sitting Balance Ability Good Dynamic Sitting Balance Ability Good Standing Balance and Reactions Static Standing Balance Ability Fair Dynamic Standing Balance Ability Fair Device Used FWW M5 PT-IP Objective Assessments Start: 11/18/20 11:34 Freq: NEEDED Status: Active Protocol: Document 11/18/20 09:15 AB (Rec: 11/18/20 11:58 AB [email or web address]) Orientation Orientation/Cognition Level of Alertness Alert Orientation Name Safety Awareness Decreased Safety Awareness Gross Range of Motion Lower Extremity ROM Assessment Within Functional Limits Strength Lower Extremity Strength Hip 4-/5 Knee 4-/5 Muscle Tone Muscle Tone WNL Yes M6 PT-IP Treatment Start: 11/18/20 11:34 Freq: NEEDED Status: Active Protocol: Document 11/18/20 09:15 AB (Rec: 11/18/20 11:58 AB [id number]) Physical Therapy Treatment Education Education Provided Safety M7 PT-IP Assessment and Plan Start: 11/18/20 11:34 Freq: NEEDED Status: Active Protocol: Document 11/18/20 09:15 AB (Rec: 11/18/20 11:58 AB [email or web address]) PT Summary Assessment and Plan Potential Rehabilitation Potential Fair Status of Condition at Evaluation Evolving Summary Impairments Pain,ROM,Strength,Balance, Coordination,Sensation,Tone, Cognition,Bed Mobility, Transfers,Gait,Activity Tolerance Assessment Summary pt requiring SBA to CGA with mobility using FWW but with decrease activity tolerance affecting mobility independence. Pt is impulsive with decrease safety awareness. pt plans to go home and spouse to assist him. pt will benefit from HHPT. Goals Bed Mobility Goal Independent Transfer Goal Independent,Cane,Front Wheeled Walker Gait Goal Independent,Cane,Front Wheel Walker Gait Distance 150 Days to Meet Goals 10 Frequency of Treatment Frequency Of Treatment Once a Day Treatment Plan Physical Therapy Treatment Plan Bed Mobility Training,Transfer Training,Gait Training, Therapeutic Exercise,Balance Retraining,Discharge Planning, Hot or Cold Pack,Neuromuscular Re-ed,Coordination Retraining Precautions Other Precautions falls Recommendations To Nursing Amount of Assist Needed 1 Person Assist Discharge Recommendations PT Discharge Recommendations Home with Assistance,Home Health Transportation Needs at Discharge Private Vehicle
--- NOTE | 2020-11-18 10:28 | PC.NURSE ---
Addendum entered by Barbara Nieves R.N. 11/18/20 14:42: Patients visiting. He denies pain. Resting on his back. Noon Blood Sugar 304, 4u of insulin given. Original Note: Assess- Patient complained of slight pain to his left lower abdomen, this has resolved. He is a one person sba to get up to the bathroom. Blood Sugar this am 242 and patient given 2u of insulin. He does take 100mg of prednisone, patient tolerated all of his po medication and ate some breakfast. He is resting now. Patient has a portacath and iv that are both patent. He is resting now.
--- NOTE | 2020-11-18 11:20 | OT.IP.EVAL ---
Past Medical History (Last Reviewed 11/17/20 @ 16:39 by Jesica Valdes MD) Atrial fibrillation B-cell lymphoma Chronic back pain greater than 3 months duration Diabetes mellitus History of cirrhosis of liver History of hepatitis C Liver transplant recipient Non-insulin dependent type 2 diabetes mellitus Surgical History (Last Reviewed 11/17/20 @ 06:10 by Mason Lawton DO) Liver transplant recipient Occupational Therapy Inpatient Evaluation/Re-Eval M1 PT/OT-IP Prior Functional Status Start: 11/18/20 11:34 Freq: NEEDED Status: Active Protocol: Document 11/18/20 11:00 [facility] (Rec: 11/18/20 13:45 [facility] [id number]) Medical Review Prior Functional Status Medical History Reviewed Yes Communication able to make needs known Mobility and Gait pt stated that he is modified independent with all mobilities and ambulation using SPC Activities of Daily Living and IADL's Pt is independent with all his ADl's and able to do some IADl needs. Pt's assists with finances and medications for the pt. Social History Household Members spouse Living Arrangements House Number of Floors (Floors) One Floor Number of Stairs To Enter/Railing? no steps to enter Home Environment Standard Height Toilet,Walk in Shower Home Equipment Straight Cane,Hand Held Shower ,Grab Bars Near Toilet,Grab Bars In Shower M2 OT-IP Current Condition Start: 11/18/20 13:31 Freq: Status: Active Protocol: Document 11/18/20 11:00 [facility] (Rec: 11/18/20 13:45 [facility] [id number]) Occupational Therapy Current Condition Current Condition Evaluation Date 11/18/20 Treatment Diagnosis Lymphoma, weakness Diagnosis Onset Date 11/17/20 M3 OT- IP Subjective and Pain Start: 11/18/20 13:31 Freq: Status: Active Protocol: Document 11/18/20 11:00 [facility] (Rec: 11/18/20 13:45 [facility] [id number]) OT- Subjective Occupational Therapy Visit Type Type Initial Evaluation Visit Start Time 11:00 Visit Stop Time 11:20 Total Visit Minutes 20 Occupational Therapy Visit Comments Patient Comments Pt agreed to get up for OT eval. Pt's in the room. Patient/Caregiver Goals To go home. OT Pain Assessment Pain When Pain Assessed At Rest Pain Present Pain Present Denied Pain M4 OT- IP ADL's Start: 11/18/20 13:31 Freq: Status: Active Protocol: Document 11/18/20 11:00 [facility] (Rec: 11/18/20 13:45 [facility] [id number]) OT MLI-Xjio-Pvwfoxe Comments OT Self-Feeding Comments Not at meal time. OT ADL-Grooming General Evaluation Grooming Ability Standby Assistance Comments OT Grooming Comments Able to basting puller front of the sink for grooming needs. OT ADL-Dressing General Eval Lower Body Dressing Ability Standby Assistance Comments OT Dressing Comments Pt able to do LB dressing needs while in bed. Pt lies on his back, bends his knees up in order to reach his feet in order to chantal his socks and underwear. OT ADL-Toileting Comments OT Toileting Comments Pt not having to go at this time. OT ADL-Bathing Comments OT Bathing Comments Not performed. M5 OT- IP IADL's Start: 11/18/20 13:31 Freq: Status: Active Protocol: Document 11/18/20 11:00 [facility] (Rec: 11/18/20 13:45 [facility] [id number]) OT-Instrumental Activities of Daily Living Home Safety Awareness Awareness of Need for Assistance at Home Good Awareness Ability to Problem Solve Emergency Able to Problem Solve Situations Medication Management Medication Management Caregiver Administers Money Management Money Management Caregiver Provides Assistance Meal Preparation Meal Preparation Caregiver Provides Assist Salvage Mechanic Salvage Mechanic Caregiver Provides Assist Driving Driving Comments Pt states has not driven in two months. M6 OT- IP Functional Cognition Start: 11/18/20 13:31 Freq: Status: Active Protocol: Document 11/18/20 11:00 [facility] (Rec: 11/18/20 13:45 [facility] [id number]) Cognitive Factors Limiting Selfcare Function Cognitive Ability Level of Alertness Alert Patient Orientation Name,Age,Place,Situation Attention Span Ability Capable of Focused Attention, Capable of Sustained Attention Ability to Follow Commands Able to Follow Multi-Step Commands Safety Awareness No Deficits Noted Cognitive Comments Cognitive Assessment Comments Pt on OT eval appears to be at baseline for cognitive needs. Continue to assess. M7 OT- IP Mobility and Balance Start: 11/18/20 13:31 Freq: Status: Active Protocol: Document 11/18/20 11:00 [facility] (Rec: 11/18/20 13:45 [facility] [id number]) OT- Bed Mobility Assessment Rolling Level of Assistance Standby Assistance Supine to Sit Supine to Sit Assist Standby Assistance Sit to Supine Sit to Supine Assist Standby Assistance OT-Transfer Assessment Sit to and From Stand Sit to and from Stand Standby Assistance Transfers Transfer Ability Standby Assistance Technique Transfer Destination Bed Transfer Technique Stand Step Pivot Devices Transfer Assistive Devices Gait Belt,Front Wheeled Walker Comments Mobility Comments SBA with FWW and bed mobility needs and able to follow log rolling with good safety and demonstration. OT- Balance Assessment Sitting Balance and Reactions Static Sitting Balance Ability Good Dynamic Sitting Balance Ability Fair Standing Balance and Reactions Static Standing Balance Ability Fair M8 OT- IP Objective Assessments Start: 11/18/20 13:31 Freq: Status: Active Protocol: Document 11/18/20 11:00 [facility] (Rec: 11/18/20 13:45 [facility] [id number]) OT Gross Range of Motion Upper Extremity Range of Motion ROM Impairments WFL for needs. OT-Muscle Tone Assessment Muscle Tone WNL Yes M9 OT- IP Assessment and Plan Start: 11/18/20 13:31 Freq: Status: Active Protocol: Document 11/18/20 11:00 [facility] (Rec: 11/18/20 13:45 [facility] [id number]) OT Summary Assessment and Plan Potential Rehabilitation Potential Good Analytic Complexity at Evaluation Moderate Summary OT Impairments Balance,Functional Mobility, Bathing,Shower Transfers, Activity Tolerance Progress Towards Goals Progressing Toward Goals Assessment Summary Pt MOD complexity and main barriers are decreased activity tolerance and pain. Pt has a supportive to assist with his needs. OT has initiated education on energy conservation strategies to help during ADL and IADL needs. Pt to go home with assist when medically stable. Goals Dressing Goal Independent Toileting Goal Independent Bathing Goal Independent Toilet Transfer Goal Independent Shower Transfer Goal Independent Patient/Caregiver Education Goal Demonstrate Energy Conservation and Pacing Days to Meet Goals 5 Frequency of Treatment Frequency Of Treatment Once a Day Treatment Plan OT Treatment Plan ADL Training,Functional Mobility,Patient/Family Education,Discharge Planning Discharge Recommendations OT Discharge Recommendations Home with Assistance Transportation Needs at Discharge Private Vehicle
--- NOTE | 2020-11-18 14:10 | DIET.CONS ---
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 Met c pt and spouse at bedside. Spouse reports she was told steroid tx likely culprit for erratic BGs. Spouse running out of recipes to try for pt as they are getting bored of eating the same foods. Pt does not like ONS Ensure type drinks, pts spouse mixing vegan protein powder c variety of liquids but pt only likes when mixed with blended fresh fruit and juice, likely high carb formula (8oz Naked juice or cranberry juice as carrier). Pt likes pork and beef but not much chicken, fish, no nut butters, no yogurt, pt sensitive to dairy, pt getting sick of eggs. Pt feels abd px from spine lesions and constipation from pain meds (pt had BM recorded today). Pt wondering why he had welsh toast c syrup for breakfast as he is diabetic. Explained to pt diet is sent up to specific carb level so his syrup would have been sugar-free option. Ht: 172.72 cm Wt: 82.5 kg (-3.9% in 6w, non-severe) BMI: 27.9 Last BM: 11/18/20 (11/18/20 12:22) MNA: 8 Adriano Score: 17 Diet: 11/17/20 Dinner Carbohydrate Consistent Diet Diet Modifications: Carbohydrate level: Medium (3 CHO) Bedtime snack: Yes Percent of last meal consumed (last 48h) Percent Meal Consumed 50% 11/18/20 09:55 Percent Meal Consumed 25% 11/17/20 18:21 Labs: RBC 2.29 X10^6/uL (4.5-5.9) L 11/18/20 05:21 Hgb 7.7 g/dL (13.5-17.5) L 11/18/20 05:21 Hct 22.6 % (41-53) L 11/18/20 05:21 Creatinine 0.63 mg/dL (0.66-1.25) L 11/18/20 05:21 Lactate 3.1 mmol/L (0.7-2.1) H 11/17/20 08:12 NT-Pro-B Natriuret Pep 1200 pg/mL (<125) H 11/17/20 05:45 Interventions: 1. Discussed removing protein powder from diet if mixing with fruit juice as this not helping pts BG management. Discussed food sources of protein. Pt enjoys all types of beans, this would be excellent source of both protein as well as soluble fiber for constipation as long as pt staying hydrated. 2. Printed pts spouse variety of recipes from [employer]. She can log on to find more recipes and meal plans to increase variety of meals presented to pt. Monitoring/Evaluations: POs
--- NOTE | 2020-11-18 14:27 | CM.DANOTE ---
DC assessment: Patient is a 70 yr old male who currently has stage 4 lymphoma and receives chemotherapy treatments. CM met with patient and patients at the bedside and explained CM role. Maren was alert and oriented at time of visit but was very tired and stated CM could talk with his if he falls asleep. Patient stated he is independent uses a FWW and does have help from his with bathing but he does all he other ADLs. Patient does not drive currently his does all the driving since patient started Chemo therapy. Patients takes care of patient at home and gets him to all his appointments. PT and OT stated home with family at DC. I: medicare and Group Therapy Records Plan: DC home with .... asked patient and about HH but both stated they didn't need HH services. CM department will continue to follow incase any DC plan needs arise prior to DC. Etta Diane RN Discharge Planning/Care Management Advanced directive, confirm from FAMILY Start: 11/17/20 12:45 Freq: Q24H Status: Active Protocol: Document 11/17/20 12:45 CM (Rec: 11/17/20 12:45 CM [id number]) Advance Directive, confirm on record Time 12:45 Person contacted pt Copy received No CM Discharge Assessment Start: 11/18/20 14:24 Freq: Status: Active Protocol: Document 11/18/20 14:24 HS (Rec: 11/18/20 14:27 HS [id number]) Discharge Planning Assessment Assigned Volcanologist Etta diane RN DPOA/Assigned Designee Name Amita Wyatt ( ) Contact Information [phone] Advance Directives? Yes Advance Directives on File No History Provided By Patient,Significant Other, Medical Record Has Patient been admitted in last 30 No days? Prior Living Arrangements House Household Members spouse Type of transporation used prior to Relies on Others admit Comment does the driving since chemo started Independent with ADL's Yes: Wade states she helps him in and out of the shower Is patient alert and oriented? Yes Needs Assistance With Bathing,Home Chores / Shopping Caregiver for Another No DME Already Rented / Owned FWW / Walker Comment Disscussed Home with HH but and patient state they dont think they will need it. Barriers to Discharge No Discharge Plan Home Referrals Initiated None needed Whiteboard Updated in Patient Room with Yes name and ext. # of Volcanologist Review Status In Process Next Review Type Continued Stay Review
[2020-11-18] MEDS: DIGOXIN 0.125 MG TABLET PO (17:01)
--- NOTE | 2020-11-18 18:38 | PM.PN.1 ---
Subjective Subjective Interval history: Patient is a 62-year-old male with a history of lymphoma admitted to the hospital for hyperglycemia and abdominal pain. CT scan confirmed a left lower lobe diverticulitis. Patient continues to have left lower quadrant pain pump, however he notes his pain is improved. Blood sugars continue to be a retic. Patient is scheduled to take his last dose of 100 mg of prednisone tomorrow. Patient's appetite is improved. Overall he feels significantly improved Exam Vital Signs (past 8 hours): - 11/18/20 11:50 11/18/20 15:05 11/18/20 17:01 Temperature 97 F L 98.0 F Pulse Rate 89 93 H 77 Respiratory Rate 18 17 Blood Pressure 110/71 116/72 Pulse Oximetry 94 94 Oxygen Delivery Method Room Air Oxygen Flow Rate 0 Narrative Exam Narrative: Pleasant gentleman resting in bed in no obvious distress Resp Other: Lungs: Clear to auscultation Cardio Other: Cardiac exam: Irregularly irregular normal S1-S2 with a 2/6 systolic ejection murmur GI Other: Abdomen: Soft, mild tenderness in the left lower quadrant, no palpable masses, no board-like rigidity, no rebound tenderness Extrem Other: Extremities: No edema Objective Labs Result Diagrams: 11/18/20 05:21 11/18/20 05:21 Labs: Laboratory Results - last 24 hr 11/18/20 11/18/20 05:21 05:21 WBC 12.2 H RBC 2.29 L Hgb 7.7 L Hct 22.6 L MCV 98.4 MCH 33.4 MCHC 34.0 RDW 21.4 H Plt Count 74 L Neut % (Auto) Not Reportable Lymph % (Auto) Not Reportable [place] % (Auto) Not Reportable Eos % (Auto) Not Reportable Baso % (Auto) Not Reportable Lymph # (Auto) Not Reportable [place] # (Auto) Not Reportable Baso # (Auto) Not Reportable Total Counted 100 Seg Neutrophils % 90.0 H Band Neutrophils % 3.0 Lymphocytes % (Manual) 6.0 L Monocytes % (Manual) 1.0 L Neutrophils # (Manual) 02157 H RBC Morphology Not Reportable Anisocytosis 2+ H Macrocytosis 1+ H Sodium 137 Potassium 3.3 L Chloride 108 H Carbon Dioxide 26 BUN 18 Creatinine 0.63 L Estimated GFR > 60.0 BUN/Creatinine Ratio 28.6 H Glucose 208 H Calcium 8.2 L PFSH Medical History Atrial fibrillation B-cell lymphoma Chronic back pain greater than 3 months duration Diabetes mellitus History of cirrhosis of liver History of hepatitis C Non-insulin dependent type 2 diabetes mellitus Surgical History Liver transplant recipient Family History Mother Atrial fibrillation and flutter Father Chronic headaches Social History household members: spouse Smoking Status: Former smoker alcohol intake: never Assessment & Plan Assessment & Plan narrative: 70 y/o male with stage 4 B-cell Lymphoma admitted with chronic abdominal pain, erratic blood sugars -CT Abd reveals mild diverticulitis -Patient with chronic abdominal pain secondary to lymphoma -suspect elevated WBC related to recent steroids -on antibiotic suppressive therapy -constipation on abdominal CT -Will continue start levofloxacin/flagyl for diverituculitis -hold bactrim for now -follow abdominal pain -continue pain medications -bowel program -patient reports significant improvement in abdominal pain. Will continue Levaquin and Flagyl at this time. Erratic Blood Sugar/Known type 2 diabetic -likely related to steroids for lymphoma -on five days prednisone -will treat with sliding scale/hold oral meds except januvia for now -continue insulin, discontinue prednisone tomorrow Atrial Fibrillation continue cardizem BPH -continue finasteride Liver Transplant -continue tacrolimus continue lasix Hypokalemia -will replace Will start lovenox for DVT prophylaxis
[2020-11-18] MEDS: POTASSIUM CHLORIDE 20 MEQ TAB 40 MEQ PO (20:20)
[2020-11-18] MEDS: FINASTERIDE 5 MG TABLET PO (20:21)
[2020-11-18] MEDS: SENNOSIDES 8.6 MG TABLET 17.2 MG PO (20:21)
[2020-11-19] MEDS: ACETAMINOPHEN 325 MG TABLET 650 MG PO (00:09)
[2020-11-19 03:15] VITALS: BP 125/73; PULSE 71; RESP 16; TEMP 36.3; O2SAT 97
[2020-11-19] MEDS: SODIUM CHLORIDE 0.9% FLUSH 10 ML IV ×2 (04:19→08:24)
[2020-11-19 04:49] LABS: Hematocrit 23.1 % (41-53); Hemoglobin 7.9 g/dL (13.5-17.5); Mean Corpuscular HGB Conc 34.1 % (30-36); Mean Corpuscular Hemoglobin 33.7 PG (26-34); Mean Corpuscular Volume 98.9 fL (80-100); Platelet Count 79 X10^3/uL (150-400); Red Blood Cell Count 2.34 X10^6/uL (4.5-5.9); Red Cell Distribution Width 20.6 % (11.6-14.8); White Blood Cell Count 9.7 X10^3/uL (4.5-11.0)
[2020-11-19 04:54] LABS: Add Manual Diff / Slide Review YES
[2020-11-19] MEDS: PANTOPRAZOLE DR 40 MG TABLET PO (06:25)
[2020-11-19] MEDS: levoFLOXacin 250 MG TABLET 500 MG PO (06:30)
[2020-11-19 06:32] LABS: BUN Creatinine Ratio 32.8 (6-22); Blood Urea Nitrogen 20 mg/dL (9-20); Calcium 8.5 mg/dL (8.4-10.2); Carbon Dioxide 26 mmol/L (22-32); Chloride 108 mmol/L (98-107); Estimated Glomerular Filt Rate > 60.0 mL/min (>60); Glucose 213 mg/dL (80-110); HEMOLYSIS < 15 (0-50); Potassium 3.4 mmol/L (3.4-5.1); Sodium 136 mmol/L (137-145)
[2020-11-19 07:00] VITALS: BP 127/77; PULSE 88; RESP 20; TEMP 36.4; O2SAT 95
[2020-11-19 07:25] LABS: Neutrophils Absolute Manual 9312 /uL (3000-5900); Total Cells Counted 100
[2020-11-19 07:26] LABS: Anisocytosis 3+
[2020-11-19] MEDS: INSULIN LISPRO 100 UNIT/ML 3ML VIAL SUBCUT (07:56)
[2020-11-19] MEDS: dilTIAZem CD 120 MG CAP PO (08:23)
[2020-11-19] MEDS: metroNIDAZOLE 500 MG TABLET PO (08:23)
[2020-11-19] MEDS: MULTIVITAMIN 1 TABLET 1 TAB PO (08:23)
[2020-11-19] MEDS: ACYCLOVIR 400 MG TABLET PO (08:23)
[2020-11-19] MEDS: DOCUSATE 100 MG CAPSULE PO (08:23)
[2020-11-19] MEDS: SITAGLIPTIN 50 MG TABLET PO (08:23)
[2020-11-19] MEDS: TACROLIMUS 0.5 MG CAPSULE PO (08:23)
[2020-11-19] MEDS: ENOXAPARIN 40 MG/0.4 ML SYRINGE SUBCUT (08:23)
[2020-11-19] MEDS: FUROSEMIDE 20 MG TABLET PO (08:23)
--- NOTE | 2020-11-19 08:46 | P.DS_ITS ---
History of Present Illness History of Present Illness Chief complaint: diabetes testing is high then low Narrative: The patient is a 70 y/o male currently undergoing treatment for stage 4 B -cell lymphoma. Patient started prednisone 100 mg daily 5 days ago. Since that time his blood sugars have been irratic from being very high to low. He and his presented for evaluation of his blood sugars. The patient also has chronic abdominal pain, back pain related to a compression fracture reports feeling cold and was also noted to have an elevated lactate. The patient has mild shortness of breath but other than back and abdominal pain has no other complaints. He notes watery stool but no hemetemsis, melena, or bright red blood per rectum. Patient denies fever, but reports feeling cold. Patient is s/p live r transplant as well. He underwent CT of abd/chest/ pelvis, which revealed mild diverticulosis, mild thickening of the colon to suggest diverticulitis, esophageal and gastric varices c/w portal hypertension, a stable low density nodule of the tail of the pancreas, adrenal nodule, enlarged prostate, mild bladder wall thickening, mumerous lytic bone lesions, non acute fracture of the 9th and 10th ribs, severe complression fracture of L1 causes moderate to severe cental canal stenosis. Patient is awake and alert and has no complaints except for abdominal pain. Patient had an elevated lactate of 4, repeat 3.1 and was admitted to the hosptial for further evaluation. Discharge Providers Provider Date of admission: 11/17/20 10:39 Discharge Date: 11/19/20 Primary care physician: Vishal Fields MD Consults: 11/17/20 12:44 Consult to Dietitian, Adult Routine Comment: cancer dx Reason For Exam: weight loss 11/17/20 16:25 Consult to Occupational Therapy Evaluate & Treat Comment: Physician Instructions: Evaluate and treat Consult to Physical Therapy Evaluate & Treat Comment: Physician Instructions: Evaluate and Treat 11/17/20 16:26 Consult to Dietitian, Adult Routine Comment: Reason For Exam: abdominal pain Discharge provider: Jesica Valdes MD Summary Hospital Course Discharge Diagnosis: 1. Acute diverticulitis 2. Stage IV lymphoma, currently undergoing chemotherapy 3. History of liver transplant 4. Atrial fibrillation 5. BPH 6. Hyperlipidemia 7. GERD 8. Atrial fibrillation Hospital Course: Patient was admitted to the hospital for elevated blood sugars. In addition he complained of abdominal pain. Patient also has significant compression fractures as well. The patient underwent CT of the chest abdomen and pelvis. This revealed some mild diverticulosis, and thickening of the colon to suggest diverticulitis. The patient also had esophageal gastric varices consistent with portal hypertension. He was admitted to the hospital for further evaluation. During the initial evaluation his lactate was elevated at 4. Repeat lactate was 3.1. The patient was placed on IV levofloxacin and Flagyl for treatment of the diverticulitis. His abdominal pain improved. His prednisone has been discontinued and his blood sugars have improved. The patient continues to complain of back pain which is chronic. He has tolerated his diet well. Overall he has felt to be improved and deemed appropriate for discharge home. Patient has a new primary care provider here in [place] he will follow-up within 1 week. He also will follow up with his oncologist in 2-3 weeks for his scheduled chemotherapy. Status at Discharge Cognitive/behavioral status at discharge: oriented Functional status at discharge: uses cane/walker Exam Vital Signs (past 8 hours): - 11/19/20 03:15 11/19/20 07:00 Temperature 97.4 F L 97.5 F L Pulse Rate 71 88 Respiratory Rate 16 20 Blood Pressure 125/73 127/77 Pulse Oximetry 97 95 Oxygen Delivery Method Room Air Oxygen Flow Rate 0 Narrative Exam Narrative: Pleasant gentleman sitting up eating breakfast Resp Other: Lungs: Decreased breath sounds but clear to auscultation Cardio Other: Cardiac exam: Irregularly irregular, normal S1-S2, 2/6 systolic ejection murmur GI Other: Abdomen obese, soft, nontender, no hepatosplenomegaly, no palpable masses, well-healed surgical incisions noted Extrem Other: 1+ pitting edema bilaterally Objective Labs Result Diagrams: 11/19/20 04:30 11/19/20 04:30 Labs: Laboratory Results - last 24 hr 11/19/20 11/19/20 04:30 04:30 WBC 9.7 RBC 2.34 L Hgb 7.9 L Hct 23.1 L MCV 98.9 MCH 33.7 MCHC 34.1 RDW 20.6 H Plt Count 79 L Neut % (Auto) Not Reportable Lymph % (Auto) Not Reportable [place] % (Auto) Not Reportable Eos % (Auto) Not Reportable Baso % (Auto) Not Reportable Lymph # (Auto) Not Reportable [place] # (Auto) Not Reportable Baso # (Auto) Not Reportable Total Counted 100 Seg Neutrophils % 94.0 H Band Neutrophils % 2.0 L Lymphocytes % (Manual) 3.0 L Basophils % (Manual) 1.0 Neutrophils # (Manual) 9312 H RBC Morphology See below Anisocytosis 3+ H Sodium 136 L Potassium 3.4 Chloride 108 H Carbon Dioxide 26 BUN 20 Creatinine 0.61 L Estimated GFR > 60.0 BUN/Creatinine Ratio 32.8 H Glucose 213 H Calcium 8.5 PFSH Medical History Atrial fibrillation B-cell lymphoma Chronic back pain greater than 3 months duration Diabetes mellitus History of cirrhosis of liver History of hepatitis C Non-insulin dependent type 2 diabetes mellitus Surgical History Liver transplant recipient Family History Mother Atrial fibrillation and flutter Father Chronic headaches Social History household members: spouse Smoking Status: Former smoker alcohol intake: never Discharge Assessment & Plan Assessment and Plan Assessment: 1. Acute diverticulitis, present on admission, improved 2. Stage IV lymphoma 3. Type 2 diabetes, with poorly controlled sugars, related to prednisone treatment for his lymphoma 4. History of liver transplant 5. Early pancytopenia, question related to recent chemo, patient with anemia and thrombocytopenia 6. BPH Plan of Treatment: Patient will be discharged home on oral antibiotics for treatment of diverticuli tis His prednisone has been discontinued He will continue his usual diabetic regimen, it is anticipated blood sugars will be elevated for the next few days and then will return towards normal. Patient will follow-up with his new primary care provider in [place] in 1 week, he will follow-up with his oncologist as previously scheduled Discharge Plan Discharge Plan Patient Disposition: Home Discharge orders & Medications Prescriptions: New metronidazole [Flagyl] 500 mg tablet 500 mg PO TID Qty: 30 RF: 0 metronidazole 500 mg Tablet 500 mg PO TID Qty: 10 RF: 0 levofloxacin 250 mg Tablet 500 mg PO 0700 Qty: 10 RF: 0 levofloxacin 500 mg tablet 500 mg PO DAILY Qty: 10 RF: 0 Continued metformin 500 mg tablet 1,000 mg PO BID RF: 0 prochlorperazine maleate 10 mg tablet 10 mg PO Q6HR PRN (Reason: nausea/vomiting) RF: 0 acyclovir 400 mg tablet 400 mg PO BID RF: 0 nadolol 40 mg tablet 40 mg PO DAILY RF: 0 furosemide 20 mg tablet 20 mg PO BID RF: 0 finasteride 5 mg tablet 5 mg PO DAILY RF: 0 tacrolimus 0.5 mg capsule 0.5 mg PO BID RF: 0 entecavir 0.5 mg tablet 0.5 mg PO DAILY RF: 0 Januvia 25 mg tablet 25 mg PO DAILY RF: 0 docusate sodium [DOK] 100 mg Capsule 100 mg PO BID Qty: 30 RF: 0 multivitamin Tablet 1 tab PO DAILY RF: 0 ondansetron HCl [Zofran] 8 mg Tablet 8 mg PO Q8H RF: 0 omeprazole 20 mg Capsule,Delayed Release(Dr/Ec) 40 mg PO DAILY RF: 0 glimepiride 4 mg tablet 4 mg BID RF: 0 digoxin 125 mcg (0.125 mg) tablet 125 mcg DAILY RF: 0 diltiazem HCl 120 mg capsule,extended release 24hr 120 mg PO DAILY RF: 0 Discontinued levofloxacin 250 mg Tablet 750 mg PO DAILY Qty: 9 RF: 0 sulfamethoxazole-trimethoprim 800-160 mg Tablet 1 tab PO Q12H RF: 0 prednisone 50 mg Tablet 100 mg PO DAILY RF: 0 Follow up/Referrals: Vishal Fields MD [Primary Care Provider] - Discharge Health Status Multidrug resistant organism: No MDRO Diet/Activity/Treatments Diet: Carb-consistent/Diabetic Skin/Wound/Dressing Care Report to your healthcare provider any signs of infection, such as:: increased pain Discharge Data Primary Care Provider: Vishal Fields
--- NOTE | 2020-11-19 09:09 | PT.IPTN ---
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) Physical Therapy Treatment Note M2 PT-IP Current Condition Start: 11/18/20 11:34 Freq: NEEDED Status: Discharge Protocol: Document 11/18/20 09:15 AB (Rec: 11/18/20 11:58 AB [id number]) Physical Therapy Current Condition Current Condition Evaluation Date 11/18/20 Treatment Diagnosis sepsis; lymphoma; difficulty in walking Onset Date 11/17/20 Precautions Other Precautions falls M3 PT-IP Subjective Start: 11/18/20 11:34 Freq: NEEDED Status: Discharge Protocol: Document 11/19/20 09:00 SP (Rec: 11/19/20 11:26 SP [id number]) Subjective Physical Therapy Visit Type Type Treatment Note Visit Start Time 09:00 Visit Stop Time 09:09 Total Visit Minutes 9 Number of ACCOUNT SUPPORT ASSOCIATE Visits 1 Physical Therapy Visit Comments Patient Comments Pt agreeable to working with therapy. Patient Goals return home with spouse to help as need Therapy Pain Assessment Pain Present Pain Present Denied Pain M4 PT-IP Mobility and Gait Start: 11/18/20 11:34 Freq: NEEDED Status: Discharge Protocol: Document 11/19/20 09:00 SP (Rec: 11/19/20 11:26 SP [id number]) PT-Bed Mobility Assessment Supine to Sit Supine to Sit Standby Assistance Scooting Scooting to Edge of Bed Standby Assistance PT-Transfer Assessment Sit to and From Stand Sit to and from Stand Standby Assistance,Contact Guard Assistance,Use of Upper Extremities Equipment Transfer Assistive Device Gait Belt,Front Wheeled Walker Orthotic/Prosthetic Devices or Brace: No Transfers Transfer Destination Chair Transfer Technique Stand Step Pivot Transfer Ability Level of Assist Standby Assistance,Contact Guard Assistance,Use of Upper Extremities Comments Mobility Comments Pt is impulsive likes to direct his own care, improved with cuing directioning and follow through. supine>sit, scoot to EOB SBA using BUE for self support. Pt agreeablel to use of donning gait belt. Sit>stand from EOB using BUE push from bed and use of FWW. Pt able to walk around room using FWW, occasional cues for upright posture, slower pacing and body closer to FWW for safety. Assessed gait short distance 10 ft using SPC , unsteady trunk balance requiring CG- Min A at this time, ACCOUNT SUPPORT ASSOCIATE suggested use of FWW , pt states has a walker at home uses when needed. Pt progressed gait into hallway using FWW CGA-SBA to stairs, completed stairs, further distance around nursing station and back to room using fWW approx 230 ft total, continued cues for slower pacing body closer to FWW, demonstrated receiprocal gait forward posture, carryover corrections with cues. PT returned to chair, cued for FWW repostioning back fully before sitting for safety hand transition, sBA. Pt had call light and all needs in reach before left. ACCOUNT SUPPORT ASSOCIATE asked nurse for chair alarm for safety but was told pt has been appropriate and not need chair alarm. Gait Assessment Gait Gait Assistance Required: Standby Assistance,Contact Guard Assist,Minimum Assistance,1 Person Assist Distance (Feet) 230 Able to Maintain Weight Bearing Status Yes During Gait Assistive Devices Assistive Device Gait Belt,Straight Cane,Front Wheeled Walker Orthotic/Prosthetic Devices or Brace: No Gait Deviations General Gait Pattern Decreased Stride Length, Decreased Feet Clearance Factors Limiting Gait Function Factors Limiting Gait Function Decreased Activity Tolerance, Decreased Strength,Difficulty Following Directions,Poor Balance,Poor Safety Awareness Comments Gait Comments Assessment gait using SPC, Min A for stability across room, noted reaching for end bed for added support. Provided FWW further gait into hallway 230 ft SBA-CGA cues for body closer to FWW, tall posture and slower pacing for safety, improved corrections with cues . Stair Climbing Assessment Evaluation Level of Assist On Stairs Contact Guard Assistance,1 Person Assistance Devices Stair Climbing Assistive Devices Straight Cane,Front Wheel Walker,Left Railing,Right Railing Technique/Endurance Stair Climbing Direction Ascend and Descend Stair Climbing Technique Step Over Step,Step to Step Number of Steps Climbed 3 Stair Climbing Set # Repetitions (reps) 1 Comments Stair Climbing Comments Ascend/descend 3 stairs using R HR and SPC on L CGA step over step, descend L HR and SPC in RUE CGA step to patterning to assimulate entering back steps. ascend/ descend 1 PF step using fWW CGA with contact and cues for safety placement, stable to assimulate front enterance. PT-Balance Assessment Sitting Balance and Reactions Static Sitting Balance Ability Good Dynamic Sitting Balance Ability Fair Standing Balance and Reactions Static Standing Balance Ability Fair Dynamic Standing Balance Ability Fair Device Used FWW, poor using SPC M5 PT-IP Objective Assessments Start: 11/18/20 11:34 Freq: NEEDED Status: Discharge Protocol: Document 11/18/20 09:15 AB (Rec: 11/18/20 11:58 AB [id number]) Orientation Orientation/Cognition Level of Alertness Alert Orientation Name Safety Awareness Decreased Safety Awareness Gross Range of Motion Lower Extremity ROM Assessment Within Functional Limits Strength Lower Extremity Strength Hip 4-/5 Knee 4-/5 Muscle Tone Muscle Tone WNL Yes M6 PT-IP Treatment Start: 11/18/20 11:34 Freq: NEEDED Status: Discharge Protocol: Document 11/19/20 09:00 SP (Rec: 11/19/20 11:26 SP [id number]) Physical Therapy Treatment Education Education Provided Safety M7 PT-IP Assessment and Plan Start: 11/18/20 11:34 Freq: NEEDED Status: Discharge Protocol: Document 11/19/20 09:00 SP (Rec: 11/19/20 11:26 SP [id number]) PT Summary Assessment and Plan Potential Rehabilitation Potential Fair Status of Condition at Evaluation Evolving Summary Impairments Pain,ROM,Strength,Balance, Coordination,Sensation,Tone, Cognition,Bed Mobility, Transfers,Gait,Activity Tolerance Progress Towards Goals Progressing Toward Goals Assessment Summary Pt required Min A for trunk stability for short distance usign SPC in room, SBA- CGA during mobility using fWW further to stairs and around nursing station. Pt is impulsive with decrease safety awareness. Pt is ok to return home with spouse to assist him / when. Pt will benefit from HHPT. Goals Bed Mobility Goal Independent Transfer Goal Independent,Cane,Front Wheeled Walker Gait Goal Independent,Cane,Front Wheel Walker Gait Distance 150 Days to Meet Goals 10 Frequency of Treatment Frequency Of Treatment Once a Day Treatment Plan Physical Therapy Treatment Plan Bed Mobility Training,Transfer Training,Gait Training, Therapeutic Exercise,Balance Retraining,Discharge Planning, Hot or Cold Pack,Neuromuscular Re-ed,Coordination Retraining Other Recommendations and Next Treatment progress gait using SPC, Focus balance activities Precautions Other Precautions falls Recommendations To Nursing Amount of Assist Needed 1 Person Assist Discharge Recommendations PT Discharge Recommendations Home with 24/ Assist Available,Home Health Transportation Needs at Discharge Private Vehicle
--- NOTE | 2020-11-19 10:16 | OT.IPNOTE ---
Pt states has no further OT needs and has a supprotive . Able to give pt therapy clinic list as pt wanting to do outpt PT.
--- NOTE | 2020-11-19 10:31 | PC.NURSE ---
Patient is going to discharge home. He is not taking prednisone as it was his last dose of 100mg yesterday. He denies pain. Waiting for his to come, she will help him with a shower and the be discharged home.
== END 2020-11-19 11:45 | disposition home or self-care (01) | DRG 638 ==
LOC: ED 10:39 → AC 10:41
PROVIDERS: Emergency Medicine; Admitting Provider Internal Medicine; Emergency Provider Emergency Medicine; PCP Family Medicine; Referring Provider Emergency Medicine; Visit Provider Internal Medicine
DX: E11.65 Type 2 diabetes mellitus with hyperglycemia (principal); K57.32 Diverticulitis of large intestine without perforation or abscess without bleeding; C85.10 Unspecified B-cell lymphoma, unspecified site; Z94.4 Liver transplant status; D84.89 Other immunodeficiencies; T38.0X5A Adverse effect of glucocorticoids and synthetic analogues, initial encounter; I48.91 Unspecified atrial fibrillation; N40.0 Benign prostatic hyperplasia without lower urinary tract symptoms; E87.6 Hypokalemia; K21.9 Gastro-esophageal reflux disease without esophagitis; G89.29 Other chronic pain; Z20.822 Contact with and (suspected) exposure to COVID-19; Z79.84 Long term (current) use of oral hypoglycemic drugs; Z87.891 Personal history of nicotine dependence
CPT/HCPCS: 36415; 36591; 71045; 71260; 74177; 80048; 80053; 81001; 82009; 82550; 82962; 83605; 83690; 83880; 84145; 84484; 85007; 85025; 87040; 87070; 87205; 87633; 87635; 93005; 96361; 96365; 96375; 97116; 97162; 97166; 99285; C9803; J0696; J1170; J1642; J1650; J1815; J2270; J2405; J7507; Q9967

== ENCOUNTER 2020-12-26 13:49 | Emergency (ER) | payer MEDICARE, OTHER, SELFPAY ==
[2020-11-17 12:28] VITALS: BMI 27.9
[2020-12-26] VITALS (13 sets, daily range): BP systolic 110–132; BP diastolic 63–73; PULSE 68–73; RESP 10–21; TEMP 36.6; O2SAT 91–100
[2020-12-26 15:01] LABS: Alanine Aminotransferase 42 IU/L (<50); Albumin 3.7 g/dL (3.5-5.0); Albumin Globulin Ratio 1.4 (1.0-2.8); Alkaline Phosphatase 98 U/L (38-126); Aspartate Aminotransferase 121 IU/L (17-59); BUN Creatinine Ratio 21.8 (6-22); Bilirubin Total 1.5 mg/dL (0.2-1.3); Blood Urea Nitrogen 17 mg/dL (9-20); Calcium 10.7 mg/dL (8.4-10.2); Carbon Dioxide 29 mmol/L (22-32); Chloride 102 mmol/L (98-107); Estimated Glomerular Filt Rate > 60.0 mL/min (>60); Globulin 2.7 g/dL (1.7-4.1); Glucose 266 mg/dL (80-110); HEMOLYSIS < 15 (0-50); Lipase 213 U/L (23-300); Potassium 4.7 mmol/L (3.4-5.1); Sodium 137 mmol/L (137-145); Total Protein 6.4 g/dL (6.3-8.2)
[2020-12-26 15:21] LABS: Hematocrit 33.4 % (41-53); Hemoglobin 11.7 g/dL (13.5-17.5); Mean Corpuscular Hemoglobin 35.5 PG (26-34); Mean Corpuscular Volume 101.6 fL (80-100); Platelet Count 109 X10^3/uL (150-400); Red Blood Cell Count 3.29 X10^6/uL (4.5-5.9); White Blood Cell Count 6.1 X10^3/uL (4.5-11.0)
[2020-12-26 15:22] LABS: Add Manual Diff / Slide Review YES
[2020-12-26] MEDS: SODIUM CHLORIDE 0.9% 1,000 ML 150 ML IV (15:38)
[2020-12-26 15:48] LABS: Neutrophils Absolute Manual 4392 /uL (3000-5900); Total Cells Counted 100
[2020-12-26 15:49] LABS: Platelet Estimate Adequate on smear; RBC Morphology Normal Morphology
[2020-12-26 15:50] LABS: Anisocytosis 1+; Macrocytosis 1+
--- NOTE | 2020-12-26 15:57 | DI.CT.S_ITS ---
PROCEDURE: CT ABDOMEN PELVIS W CON INDICATIONS: abd pain TECHNIQUE: After the administration of intravenous contrast, axial sections acquired from the lung bases to the pubic symphysis. Coronal and sagittal reformats were performed. For radiation dose reduction, the following was used: automated exposure control, adjustment of mA and/or kV according to patient size. COMPARISON: [facility], CT, CT ABDOMEN PELVIS W CON, 07/03/2020, 15:40. FINDINGS: Image quality: Excellent. Lung bases: Unremarkable. Heart: No significant findings. ABDOMEN: Liver: Nodular hepatic contour. Previously seen low-density hepatic nodules are less well seen on the current examination, likely secondary to differences in contrast bolus timing. Gallbladder: Is surgically absent. Biliary ducts: There is mild extrahepatic biliary ductal dilatation, as before. Pancreas: Unremarkable. Spleen: Unremarkable. Adrenal Glands: Unremarkable. Kidneys and Ureters: Unremarkable. Stomach and Bowel: Stomach, small bowel loops, and colon are unremarkable. Appendix is within normal limits. Peritoneum: No abnormal intraperitoneal fluid. No free air. Ventral Wall: No hernias. Abdominal Nodes: No retroperitoneal or mesenteric adenopathy by size criteria. Vessels: Aorta and inferior vena cava are normal in size. Multiple portal splenic collateral vessels within the left upper quadrant. PELVIS: Pelvic Organs: Unremarkable. Bladder: Unremarkable. Pelvic Nodes: No enlarged lymph nodes. Miscellaneous: No hernias are seen. Bones: Scattered ill-defined sclerotic foci throughout the visualized axial and appendicular skeleton, consistent with the given history of metastatic disease. There is a new chronic appearing severe L1 compression fracture, with retropulsion, causing severe canal stenosis at L1. There is a subacute/chronic appearing mild L2 compression fracture without significant retropulsion. IMPRESSION: 1. Cirrhosis and portal hypertension. 2. Previously seen hypodense hepatic nodules are less well seen on the current examination, likely secondary to differences in contrast bolus timing. 3. New L1 and L2 compression fractures as described above. Severe consequent canal stenosis at L1. Dictated by: Mando Campos M.D. on 12/26/2020 at 16:47 Approved by: Mando Campos M.D. on 12/26/2020 at 16:50
--- NOTE | 2020-12-26 16:23 | ED_ITS ---
HPI - Abdominal Pain <Baldev Bonilla PA-C - Last Filed: 12/26/20 19:46> General Chief Complaint: Abdominal Pain Stated Complaint: Sent From [facility], Diverticulitis Time Seen by Provider: 12/26/20 15:02 History of Present Illness HPI narrative: Gage presents today with chief complaint of left-sided abdominal pain and left testicular pain that started gradually about 4 days ago. He was sent from his [facility] oncology appointment here to the emergency department to get evaluated for his abdominal pain. They are concerned because he is an insulin-dependent diabetic, is on immunotherapy secondary to a liver transplant, and has history of lymphoma. He also has history of epididymitis and states that this feels similar. He recently finished a course of levofloxacin 2 days ago. He denies any significant nausea, vomiting, constipation, diarrhea, chest pain, difficulty breathing, rash, pain with urination, increased frequency of urination, penile discharge, or any other acute concerns or complaints at this time. Related Data Home Medications Medication Instructions Recorded Confirmed acyclovir 400 mg tablet 400 mg PO BID 10/04/20 11/17/20 entecavir 0.5 mg tablet 0.5 mg PO DAILY 10/04/20 11/17/20 finasteride 5 mg tablet 5 mg PO DAILY 10/04/20 11/17/20 furosemide 20 mg tablet 20 mg PO BID 10/04/20 11/17/20 metformin 500 mg tablet 1,000 mg PO BID 10/04/20 11/17/20 nadolol 40 mg tablet 40 mg PO DAILY 10/04/20 11/17/20 prochlorperazine maleate 10 mg 10 mg PO Q6HR PRN 10/04/20 11/17/20 tablet sitagliptin 25 mg tablet (Januvia) 25 mg PO DAILY 10/04/20 11/17/20 tacrolimus 0.5 mg capsule, 0.5 mg PO BID 10/04/20 11/17/20 immediate-release multivitamin 1 tab PO DAILY 11/05/20 11/17/20 omeprazole 20 mg capsule,delayed 40 mg PO DAILY 11/05/20 11/17/20 release ondansetron HCl 8 mg tablet 8 mg PO Q8H 11/05/20 11/17/20 digoxin 125 mcg (0.125 mg) tablet 125 mcg DAILY 11/17/20 11/17/20 diltiazem HCl 120 mg 120 mg PO DAILY 11/17/20 11/17/20 capsule,extended release 24 hr glimepiride 4 mg tablet 4 mg BID 11/17/20 11/17/20 Previous Rx's Medication Instructions Recorded docusate sodium 100 mg capsule 100 mg PO BID #30 cap 10/06/20 (DOK) levofloxacin 250 mg tablet 500 mg PO 0700 #10 tab 11/19/20 levofloxacin 500 mg tablet 500 mg PO DAILY #10 tab 11/19/20 metronidazole 500 mg tablet 500 mg PO TID #10 tab 11/19/20 metronidazole 500 mg tablet 500 mg PO TID #30 tab 11/19/20 (Flagyl) Allergies Allergy/AdvReac Type Severity Reaction Status Date / Time tetracycline [TETRACYCLINE] Allergy Unknown Itching/hiv Verified 12/26/20 14:31 es ampicillin Allergy Verified 12/26/20 14:31 bee venom protein (honey bee) Allergy Verified 12/26/20 14:31 oxycodone [OXYCODONE] AdvReac Severe SEVERE Verified 12/26/20 14:31 ITCHING Review of Systems <Baldev Bonilla PA-C - Last Filed: 12/26/20 19:46> Review of Systems Narrative: As per HPI Patient History <Baldev Bonilla PA-C - Last Filed: 12/26/20 19:46> Medical History Atrial fibrillation B-cell lymphoma Chronic back pain greater than 3 months duration Diabetes mellitus History of cirrhosis of liver History of hepatitis C Non-insulin dependent type 2 diabetes mellitus Surgical History Liver transplant recipient Family History Mother Atrial fibrillation and flutter Father Chronic headaches Social History household members: spouse Smoking Status: Former smoker alcohol intake: never Smoking Status: Former smoker alcohol intake frequency: holidays/special occasions only Substance Use Type: does not use Exam <Baldev Bonilla PA-C - Last Filed: 12/26/20 19:46> Narrative Exam Narrative: Exam Narrative: Const General: cooperative, ill appearing, no acute distress, well developed and well groomed Nutritional Appearance: Elevated BMI Orientation: alert and oriented x3 HENMT Head: normal to inspection and atraumatic Ears: hearing grossly normal bilaterally Nose: external nose normal and nares normal Face and sinus: normal facial exam Neck Neck: normal visual inspection and supple Resp Effort & Inspection: normal respiratory effort, able to speak in complete sente nces, no audible wheezes, not labored, no nasal flaring and no respiratory distress, clear to auscultation bilaterally Cardiac Regular rate, irregular rhythm GI Large postsurgical scar noted. Minimal left lower quadrant abdominal tenderness with palpation, no guarding, no rebound tenderness. Normal uncircumcised penis, normal scrotal examination, testicles minimally tender bilaterally, no hernia noted, no inguinal lymphadenopathy, no rash, nontender prostate. Neuro General: alert, oriented x3, gait normal, tone normal and moves all extremities Cognition: normal cognition Speech: speech normal Gait: normal gait Psych Appearance: grossly normal and well kempt Mental Status: mental status grossly normal Speech and Movement: speech and movement normal Mood: congruent mood Affect: normal affect Initial Vital Signs Initial Vital Signs: Vital Signs Temperature 97.8 F 12/26/20 14:25 Pulse Rate 71 12/26/20 14:25 Respiratory Rate 14 12/26/20 14:25 Blood Pressure 112/66 12/26/20 14:25 Pulse Oximetry 100 12/26/20 14:25 <Maurice Singh MD - Last Filed: 12/27/20 06:38> Initial Vital Signs Initial Vital Signs: Vital Signs Temperature 97.8 F 12/26/20 14:25 Pulse Rate 71 12/26/20 14:25 Respiratory Rate 14 12/26/20 14:25 Blood Pressure 112/66 12/26/20 14:25 Pulse Oximetry 100 12/26/20 14:25 Course <Baldev Bonilla PA-C - Last Filed: 12/26/20 19:46> Orders Ordered: Discontinued Medications Hydrocodone Bitart/Acetaminophen (Hydrocodone/Acet 5/325 Tablet) 2 tab PO NOW ONE Stop: 12/26/20 17:17 Last Admin: 12/26/20 17:26 Dose: 2 tab Documented by: AZEEM Sodium Chloride (Normal Saline 0.9%) 1,000 mls @ 150 mls/hr IV BOLUS ONE Stop: 12/26/20 22:00 Last Infusion: 12/26/20 19:54 Dose: 0 mls/hr Documented by: Admin: 12/26/20 15:38 Dose: 150 mls/hr Documented by: AZEEM Vital Signs Vital signs: Vital Signs - 8 hr 12/26/20 14:25 12/26/20 15:21 12/26/20 15:30 Temperature 97.8 F Pulse Rate 71 69 68 Respiratory Rate 14 12 Blood Pressure 112/66 112/70 112/63 Pulse Oximetry 100 99 97 12/26/20 16:00 12/26/20 16:19 12/26/20 16:42 Temperature Pulse Rate 71 71 70 Respiratory Rate 10 L 20 13 Blood Pressure 115/72 115/72 Pulse Oximetry 98 98 91 12/26/20 16:46 12/26/20 17:00 12/26/20 17:30 Temperature Pulse Rate 71 72 72 Respiratory Rate 16 14 12 Blood Pressure 132/73 114/68 Pulse Oximetry 98 96 97 12/26/20 18:00 12/26/20 18:51 Temperature Pulse Rate 73 72 Respiratory Rate 14 14 Blood Pressure 110/68 Pulse Oximetry 98 97 <Maurice Singh MD - Last Filed: 12/27/20 06:38> Orders Ordered: Discontinued Medications Hydrocodone Bitart/Acetaminophen (Hydrocodone/Acet 5/325 Tablet) 2 tab PO NOW ONE Stop: 12/26/20 17:17 Last Admin: 12/26/20 17:26 Dose: 2 tab Documented by: AZEEM Sodium Chloride (Normal Saline 0.9%) 1,000 mls @ 150 mls/hr IV BOLUS ONE Stop: 12/26/20 22:00 Last Infusion: 12/26/20 19:54 Dose: 0 mls/hr Documented by: Admin: 12/26/20 15:38 Dose: 150 mls/hr Documented by: AZEEM Vital Signs Vital signs: Vital Signs - 8 hr 12/26/20 14:25 12/26/20 15:21 12/26/20 15:30 Temperature 97.8 F Pulse Rate 71 69 68 Respiratory Rate 14 12 Blood Pressure 112/66 112/70 112/63 Pulse Oximetry 100 99 97 12/26/20 16:00 12/26/20 16:19 12/26/20 16:42 Temperature Pulse Rate 71 71 70 Respiratory Rate 10 L 20 13 Blood Pressure 115/72 115/72 Pulse Oximetry 98 98 91 12/26/20 16:46 12/26/20 17:00 12/26/20 17:30 Temperature Pulse Rate 71 72 72 Respiratory Rate 16 14 12 Blood Pressure 132/73 114/68 Pulse Oximetry 98 96 97 12/26/20 18:00 12/26/20 18:51 Temperature Pulse Rate 73 72 Respiratory Rate 14 14 Blood Pressure 110/68 Pulse Oximetry 98 97 MDM - Abdominal Pain <Baldev Bonilla PA-C - Last Filed: 12/26/20 19:46> Lab Data Result diagrams: 12/26/20 14:40 12/26/20 14:40 Labs: Lab Results 12/26/20 12/26/20 Range/Units 14:40 14:40 WBC 6.1 (4.5-11.0) X10^3/uL RBC 3.29 L (4.5-5.9) X10^6/uL Hgb 11.7 L (13.5-17.5) g/dL Hct 33.4 L (41-53) % MCV 101.6 H (80-100) fL MCH 35.5 H (26-34) PG MCHC 35.0 (30-36) % RDW 18.0 H (11.6-14.8) % Plt Count 109 L (150-400) X10^3/uL Neut % (Auto) Not Reportable Lymph % (Auto) Not Reportable [place] % (Auto) Not Reportable Eos % (Auto) Not Reportable Baso % (Auto) Not Reportable Lymph # (Auto) Not Reportable [place] # (Auto) Not Reportable Baso # (Auto) Not Reportable Total Counted 100 Seg Neutrophils % 72.0 H (38-70) % Lymphocytes % (Manual) 16.0 L (25-45) % Monocytes % (Manual) 12.0 H (2-11) % Neutrophils # (Manual) 4392 ([id number]) /uL Platelet Estimate Adequate on smear RBC Morphology Normal morphology Anisocytosis 1+ H Macrocytosis 1+ H Sodium 137 (137-145) mmol/L Potassium 4.7 (3.4-5.1) mmol/L Chloride 102 (98-107) mmol/L Carbon Dioxide 29 (22-32) mmol/L BUN 17 (9-20) mg/dL Creatinine 0.78 (0.66-1.25) mg/dL Estimated GFR > 60.0 (>60) mL/min BUN/Creatinine Ratio 21.8 (6-22) Glucose 266 H (80-110) mg/dL Calcium 10.7 H (8.4-10.2) mg/dL Total Bilirubin 1.5 H (0.2-1.3) mg/dL AST 121 H (17-59) IU/L ALT 42 (<50) IU/L Alkaline Phosphatase 98 (38-126) U/L Total Protein 6.4 (6.3-8.2) g/dL Albumin 3.7 (3.5-5.0) g/dL Globulin 2.7 (1.7-4.1) g/dL Albumin/Globulin Ratio 1.4 (1.0-2.8) Lipase 213 (23-300) U/L Point of care testing: Urine Dip Bedside Urine Glucose Negative Bedside Urine Bilirubin - Negative Bedside Urine Ketone - Negative Urine Specific [place] 1.030 Bedside Urine Occult Blood - Negative Bedside Urine pH 6.0 Bedside Urine Protein - Negative Bedside Urine Urobilinogen - Negative Bedside Urine Nitrite - Negative Bedside Urine Leukocytes - Negative Esterase MDM Narrative Medical decision making narrative: Differential diagnosis includes testicular torsion, epididymitis, inguinal hernia, diverticulitis, atypical appendicitis, bowel obstruction, lymphadenitis, ischemic colitis, shingles. Patient is chronically ill-appearing without any obvious acute findings. No obvious signs of infection were noted on examination. No obvious herniation was obvious on physical exam or diagnostic imaging. No evidence of rash. Urinalysis is grossly normal and prostate was nontender. Given his immunocompromised state, I recommended that we admit him for observation to see if his symptoms change or worsen. Patient does not want to do this at this time and is instead going to be going home. Risks and benefits were clearly discussed. Patient verbalized understanding to the risks. He agreed to return to the emergency department should any of his symptoms worsen. Patient antonia tam understanding and agrees to plan and has no further concerns at this time. Thank you A [id number] system was used with the dictation of this note. Please disregard any spelling or grammatical errors. <Maurice Singh MD - Last Filed: 12/27/20 06:38> Lab Data Labs: Lab Results 12/26/20 12/26/20 Range/Units 14:40 14:40 WBC 6.1 (4.5-11.0) X10^3/uL RBC 3.29 L (4.5-5.9) X10^6/uL Hgb 11.7 L (13.5-17.5) g/dL Hct 33.4 L (41-53) % MCV 101.6 H (80-100) fL MCH 35.5 H (26-34) PG MCHC 35.0 (30-36) % RDW 18.0 H (11.6-14.8) % Plt Count 109 L (150-400) X10^3/uL Neut % (Auto) Not Reportable Lymph % (Auto) Not Reportable [place] % (Auto) Not Reportable Eos % (Auto) Not Reportable Baso % (Auto) Not Reportable Lymph # (Auto) Not Reportable [place] # (Auto) Not Reportable Baso # (Auto) Not Reportable Total Counted 100 Seg Neutrophils % 72.0 H (38-70) % Lymphocytes % (Manual) 16.0 L (25-45) % Monocytes % (Manual) 12.0 H (2-11) % Neutrophils # (Manual) 4392 ([id number]) /uL Platelet Estimate Adequate on smear RBC Morphology Normal morphology Anisocytosis 1+ H Macrocytosis 1+ H Sodium 137 (137-145) mmol/L Potassium 4.7 (3.4-5.1) mmol/L Chloride 102 (98-107) mmol/L Carbon Dioxide 29 (22-32) mmol/L BUN 17 (9-20) mg/dL Creatinine 0.78 (0.66-1.25) mg/dL Estimated GFR > 60.0 (>60) mL/min BUN/Creatinine Ratio 21.8 (6-22) Glucose 266 H (80-110) mg/dL Calcium 10.7 H (8.4-10.2) mg/dL Total Bilirubin 1.5 H (0.2-1.3) mg/dL AST 121 H (17-59) IU/L ALT 42 (<50) IU/L Alkaline Phosphatase 98 (38-126) U/L Total Protein 6.4 (6.3-8.2) g/dL Albumin 3.7 (3.5-5.0) g/dL Globulin 2.7 (1.7-4.1) g/dL Albumin/Globulin Ratio 1.4 (1.0-2.8) Lipase 213 (23-300) U/L Point of care testing: Urine Dip Bedside Urine Glucose Negative Bedside Urine Bilirubin - Negative Bedside Urine Ketone - Negative Urine Specific [place] 1.030 Bedside Urine Occult Blood - Negative Bedside Urine pH 6.0 Bedside Urine Protein - Negative Bedside Urine Urobilinogen - Negative Bedside Urine Nitrite - Negative Bedside Urine Leukocytes - Negative Esterase Discharge Plan Departure Patient Disposition: Home Clinical Impression: Abdominal pain Qualifiers: Abdominal location: left lower quadrant Qualified Code(s): R10.32 - Left lower quadrant pain Instructions: DI for Abdominal Pain-Adult Activity Restrictions/Additional Instructions: It was very nice to meet you both his evening. Your evaluation today has been reassuring. However, with your medical conditions we need to take a complaint of abdominal pain seriously. If your pain becomes worse over the weekend please do not hesitate return for re-evaluation. Otherwise, please call your PCP on Tuesday to schedule a follow-up appointment. Thank you Baldev Bonilla PA-C Prescriptions: No Action metformin 500 mg tablet 1,000 mg PO BID RF: 0 prochlorperazine maleate 10 mg tablet 10 mg PO Q6HR PRN (Reason: nausea/vomiting) RF: 0 acyclovir 400 mg tablet 400 mg PO BID RF: 0 nadolol 40 mg tablet 40 mg PO DAILY RF: 0 furosemide 20 mg tablet 20 mg PO BID RF: 0 finasteride 5 mg tablet 5 mg PO DAILY RF: 0 tacrolimus 0.5 mg capsule 0.5 mg PO BID RF: 0 entecavir 0.5 mg tablet 0.5 mg PO DAILY RF: 0 Januvia 25 mg tablet 25 mg PO DAILY RF: 0 docusate sodium [DOK] 100 mg Capsule 100 mg PO BID Qty: 30 RF: 0 multivitamin Tablet 1 tab PO DAILY RF: 0 ondansetron HCl 8 mg Tablet 8 mg PO Q8H RF: 0 omeprazole 20 mg Capsule,Delayed Release(Dr/Ec) 40 mg PO DAILY RF: 0 glimepiride 4 mg tablet 4 mg BID RF: 0 digoxin 125 mcg (0.125 mg) tablet 125 mcg DAILY RF: 0 diltiazem HCl 120 mg capsule,extended release 24hr 120 mg PO DAILY RF: 0 metronidazole 500 mg Tablet 500 mg PO TID Qty: 10 RF: 0 levofloxacin 250 mg Tablet 500 mg PO 0700 Qty: 10 RF: 0 levofloxacin 500 mg tablet 500 mg PO DAILY Qty: 10 RF: 0 metronidazole [Flagyl] 500 mg tablet 500 mg PO TID Qty: 30 RF: 0 Referrals: Vishal Fields MD [Primary Care Provider] - <Maurice Singh MD - Last Filed: 12/27/20 06:38> Cosign ED Attending Cosignature Attestation: I was immediately available in the department for consultation. This documentation has been reviewed and I agree with assessment and plan. Supervised by Maurice Singh MD
--- NOTE | 2020-12-26 17:12 | DI.US.S_ITS ---
PROCEDURE: US SCROTUM INDICATIONS: TESTICULAR PAIN. TECHNIQUE: Real-time scanning was performed of the scrotum and testicles, with image documentation. Color and pulse Doppler interrogation was performed of both testicles. COMPARISON: [facility], , US SCROTUM, 10/06/2020, 8:14. FINDINGS: Right: Testicle is normal in size at 2.6 x 1.8 x 2.1 cm, and homogenous in echotexture. Epididymis is normal in overall size and morphology. No hydrocele or varicoceles. Overlying scrotal skin is normal in thickness. Small epididymal cyst. Left: Testicle is normal in size at 3.6 x 2.0 x 2.1 cm, and homogeneous in echotexture. Epididymis is normal in overall size and morphology. No hydrocele or varicoceles. Overlying scrotal skin is normal in thickness. Small epididymal cyst. Doppler: Color and pulse Doppler demonstrate normal and symmetric arterial flow in both testicles. IMPRESSION: No acute process. Dictated by: Mando Campos M.D. on 12/26/2020 at 18:31 Approved by: Mando Campos M.D. on 12/26/2020 at 18:32
[2020-12-26] MEDS: HYDROCODONE/ACET 5/325 TABLET 2 TAB PO (17:26)
== END 2020-12-26 20:10 | disposition home or self-care (01) ==
PROVIDERS: Emergency Medicine; Emergency Provider Physician Assistant; PCP Family Medicine
DX: R10.32 Left lower quadrant pain (principal)
CPT/HCPCS: 36415; 74177; 76870; 80053; 81003; 83690; 85007; 85025; 93005; 96360; 96361; 99284; J1642; Q9967

== ENCOUNTER → 2021-08-24 07:40 | Outpatient (CLI) | payer MEDICARE, OTHER, SELFPAY ==
[2020-11-17 12:28] VITALS: BMI 27.9
[2021-08-24 08:40] LABS: Add Manual Diff / Slide Review NO; Basophils Absolute Auto 0 /uL (0-100); Basophils Percent Auto 0.6 % (0-2); Eosinophils Absolute Auto 200 /uL (0-450); Hematocrit 35.4 % (41-53); Hemoglobin 12.6 g/dL (13.5-17.5); Lymphocytes Absolute Auto 800 /uL (1100-4500); Lymphocytes Percent Auto 31.8 % (25-40); Mean Corpuscular HGB Conc 35.6 % (30-36); Mean Corpuscular Hemoglobin 32.6 PG (26-34); Mean Corpuscular Volume 91.5 fL (80-100); Monocytes Absolute Auto 500 /uL (0-900); Monocytes Percent Auto 18.2 % (3-14); Neutrophils Absolute Auto 1100 /uL (1500-7000); Neutrophils Percent Auto 42.4 % (50-75); Platelet Count 136 X10^3/uL (150-400); Red Blood Cell Count 3.87 X10^6/uL (4.5-5.9); White Blood Cell Count 2.7 X10^3/uL (4.5-11.0)
[2021-08-24 08:47] LABS: INR 1.1 (0.9-1.3); Prothrombin Time 12.1 SECONDS (10.1-12.7)
[2021-08-24 08:59] LABS: Alanine Aminotransferase 24 IU/L (<50); Albumin 3.7 g/dL (3.5-5.0); Albumin Globulin Ratio 1.5 (1.0-2.8); Alkaline Phosphatase 68 U/L (38-126); Aspartate Aminotransferase 31 IU/L (17-59); Bilirubin Total 1.2 mg/dL (0.2-1.3); Blood Urea Nitrogen 19 mg/dL (9-20); Calcium 10.1 mg/dL (8.4-10.2); Carbon Dioxide 26 mmol/L (22-32); Chloride 105 mmol/L (98-107); Estimated Glomerular Filt Rate > 60 mL/min (>60); Gamma Glutamyl Transpeptidase 44 U/L (15-73); Globulin 2.5 g/dL (1.7-4.1); Glucose 188 mg/dL (80-110); HEMOLYSIS < 15 (0-50); Magnesium 1.1 mg/dL (1.6-2.3); Phosphorous 3.2 mg/dL (2.3-3.7); Potassium 4.7 mmol/L (3.4-5.1); Sodium 137 mmol/L (137-145); Total Protein 6.2 g/dL (6.3-8.2)
[2021-08-25 10:02] LABS: Tacrolimus 3.4 ng/mL (2.0-20.0)
== END ==
PROVIDERS: PCP Family Medicine; Referring Provider Internal Medicine Gastroenterology; Visit Provider Internal Medicine Gastroenterology
DX: Z94.4 Liver transplant status (principal); Z48.298 Encounter for aftercare following other organ transplant; Z79.899 Other long term (current) drug therapy
CPT/HCPCS: 36415; 80048; 80076; 80197; 82977; 83735; 84100; 85025; 85610

== ENCOUNTER → 2021-12-21 09:14 | Outpatient (CLI) | payer MEDICARE, OTHER, SELFPAY ==
[2020-11-17 12:28] VITALS: BMI 27.9
[2021-12-21 09:42] LABS: Add Manual Diff / Slide Review NO; Basophils Absolute Auto 100 /uL (0-100); Eosinophils Absolute Auto 200 /uL (0-450); Eosinophils Percent Auto 3.6 % (2-4); Hematocrit 37.7 % (41-53); Hemoglobin 13.5 g/dL (13.5-17.5); Lymphocytes Absolute Auto 1300 /uL (1100-4500); Mean Corpuscular HGB Conc 35.7 % (30-36); Mean Corpuscular Hemoglobin 31.7 PG (26-34); Mean Corpuscular Volume 88.7 fL (80-100); Monocytes Absolute Auto 500 /uL (0-900); Monocytes Percent Auto 9.2 % (3-14); Neutrophils Absolute Auto 3300 /uL (1500-7000); Neutrophils Percent Auto 62.2 % (50-75); Platelet Count 161 X10^3/uL (150-400); Red Blood Cell Count 4.25 X10^6/uL (4.5-5.9); Red Cell Distribution Width 14.5 % (11.6-14.8); White Blood Cell Count 5.4 X10^3/uL (4.5-11.0)
[2021-12-21 09:48] LABS: Prothrombin Time 11.1 SECONDS (10.1-12.7)
[2021-12-21 09:57] LABS: Alanine Aminotransferase 24 IU/L (<50); Albumin 4.1 g/dL (3.5-5.0); Albumin Globulin Ratio 1.4 (1.0-2.8); Alkaline Phosphatase 105 U/L (38-126); Aspartate Aminotransferase 31 IU/L (17-59); BUN Creatinine Ratio 17.9 (6-22); Bilirubin Total 0.9 mg/dL (0.2-1.3); Bilirubin Unconjugated 0.6 mg/dL (0.0-1.1); Blood Urea Nitrogen 20 mg/dL (9-20); Calcium 10.1 mg/dL (8.4-10.2); Carbon Dioxide 23 mmol/L (22-32); Chloride 102 mmol/L (98-107); Estimated Glomerular Filt Rate > 60 mL/min (>60); Glucose 325 mg/dL (80-110); HEMOLYSIS 58 (0-50); Magnesium 1.3 mg/dL (1.6-2.3); Phosphorous 3.3 mg/dL (2.3-3.7); Potassium 4.3 mmol/L (3.4-5.1); Sodium 137 mmol/L (137-145); Total Protein 7.1 g/dL (6.3-8.2)
[2021-12-21 10:19] LABS: Gamma Glutamyl Transpeptidase 40 U/L (15-73)
[2021-12-22 09:27] LABS: Tacrolimus 3.1 ng/mL (2.0-20.0)
== END ==
PROVIDERS: PCP Family Medicine; Referring Provider Internal Medicine Gastroenterology; Visit Provider Internal Medicine Gastroenterology
DX: Z94.4 Liver transplant status (principal); Z48.298 Encounter for aftercare following other organ transplant; Z79.899 Other long term (current) drug therapy
CPT/HCPCS: 36415; 80048; 80076; 80197; 82977; 83735; 84100; 85025; 85610

== ENCOUNTER → 2022-05-12 10:24 | Outpatient (CLI) | payer MEDICARE, OTHER, SELFPAY ==
[2020-11-17 12:28] VITALS: BMI 27.9
--- NOTE | 2022-05-12 | DI.NM.S_ITS ---
PROCEDURE: NM BONE SCAN WHOLE BODY RADIOPHARMACEUTICAL: 21.4 mCi Tc-99m MDP IV. INDICATIONS: Malignant neoplasm of prostate TECHNIQUE: Delayed whole-body scintigrams were obtained approximately 3-4 hours after intravenous injection of radiotracer. Anterior and posterior views were acquired from vertex to feet. Additional left and right oblique views of the pelvis were obtained. COMPARISON: [facility], CT, CT HEAD/BRAIN WO CON, 10/10/2020, 11:53. [facility], CT, CT THORACIC SPINE WO CON, 10/10/2020, 11:53. CT, CT ABDOMEN PELVIS W CON, 12/26/2020, 16:37. CT, CT CHEST ABD PEL W CON, 11/17/2020, 7:35. FINDINGS: Mildly increased uptake in the left frontal bone. There is no definitive finding on the remote head CT dated 10/10/2020 to correlate with the increased activity. Subtle increased uptake is seen in the mid right humeral shaft. There is increased activity in T12 and L1 area. The comparison CT of thoracic spine dated 10/10/2020 showed severe compression fracture of L1 at the time. No lesions are identified in sternum, clavicles, scapulae, ribs, bony pelvis, and visualized shafts of the long bones. There are foci of increased uptake in cervical, thoracic and lumbar spine most likely secondary to degenerative disc and facet disease; early metastasis to spine could be obscured by degenerative changes. There are foci of increased periarticular activity most pronounced in wrists, hips, knees, compatible with degenerative/arthritic changes. IMPRESSION: 1. Mildly increased uptake in the left frontal bone and mid right humeral shaft could represent early metastasis. Recommend radiographic correlation and correlation with tumor markers. 2. Increased uptake in T12 and L1 area may be related to old fracture and degenerative change which was evident on the comparison CT dated 10/10/2020. Since no recent x-ray or CT of the thoracolumbar spine, recommend repeat x-ray of the thoracic and lumbar spine for further evaluation. 3. Degenerative changes in spine and multiple peripheral joints. Dictated by: Murray Hankins M.D. on 05/12/2022 at 16:32 Approved by: Murray Hankins M.D. on 05/13/2022 at 8:44
== END ==
PROVIDERS: PCP Family Medicine; Referring Provider Urology; Visit Provider Urology
DX: C61 Malignant neoplasm of prostate (principal); M89.9 Disorder of bone, unspecified
CPT/HCPCS: 78306; A9503

== ENCOUNTER → 2022-05-13 11:55 | Outpatient (CLI) | payer MEDICARE, OTHER, SELFPAY ==
[2020-11-17 12:28] VITALS: BMI 27.9
--- NOTE | 2022-05-13 | DI.CT.S_ITS ---
PROCEDURE: CT CHEST ABD PEL WO CON INDICATIONS: Malignant neoplasm of prostate TECHNIQUE: After the administration of oral contrast, 5 mm thick sections acquired from the lung apices to the symphysis pubis. 5 mm thick coronal and sagittal reformats acquired, with additional 7 mm coronal MIP reformats through the lungs. For radiation dose reduction, the following was used: automated exposure control, adjustment of mA and/or kV according to patient size. COMPARISON: [facility], NM, NM BONE SCAN WHOLE BODY, 05/12/2022, 10:47. [facility], CT, CT ABDOMEN PELVIS W CON, 12/26/2020, 16:37. [facility], CT, CT CHEST ABD PEL W CON, 11/17/2020, 7:35. FINDINGS: Image quality: Excellent. Evaluation of the solid parenchymal organs is limited without IV contrast. CHEST: Lungs and pleura: No acute pulmonary opacities. Punctate pulmonary nodule in the right upper lobe is unchanged. No pleural effusions or pneumothorax. Central and peripheral airways are patent are normal in caliber. Mediastinum: Heart size is prominen. Moderate calcified plaque. No pericardial effusion. No mediastinal adenopathy by CT size criteria. Thoracic aorta and central pulmonary arteries are normal in size. Esophagus is normal in caliber. No hiatal hernia. Chest wall: No axillary or supraclavicular adenopathy by size criteria. Thyroid gland is unremarkable. Gynecomastia. ABDOMEN: Solid organs: Liver is normal in size. Clips adjacent to the liver. Gallbladder is absent. CBD is prominent. Scattered punctate pancreatic calcifications. 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 Spleen is enlarged measuring 15.2 cm. Right adrenal nodule measuring 1.1 cm, unchanged. Both kidneys are normal in size, without hydronephrosis or nephrolithiasis. Peritoneum and bowel: Small and large bowel loops are normal in caliber and wall thickness. Diverticulosis. Normal appendix. No free fluid or air. Nodes and vessels: No retroperitoneal or mesenteric adenopathy by size criteria. Aorta and inferior vena cava are normal in size. Moderate calcified plaque. Splenic varices and splenorenal shunt. Miscellaneous: No ventral hernias. PELVIS: Genitourinary: Bladder wall thickness is normal. Prostatomegaly. Miscellaneous: No inguinal hernias or adenopathy. Bones: Diffuse heterogeneous appearance of the bones. T1 posterior spinous process sclerotic focus. L1 compression fracture, vertebral plana. Mild L2 compression fracture is unchanged. Minimal height loss at T2. Multilevel DDD. These findings are unchanged. IMPRESSION: 1. Heterogeneous appearance of the vertebral bodies which could be due to metastatic disease. Small sclerotic focus at the posterior spinous process at T1. These findings are unchanged. 2. No enlarged lymph nodes identified. 3. Suspect cirrhosis. Splenomegaly with splenic varices and splenorenal shunt. Findings consistent with portal hypertension. No ascites. Dictated by: Julio Gonsales M.D. on 05/13/2022 at 15:11 Approved by: Julio Gonsales M.D. on 05/13/2022 at 15:30
== END ==
PROVIDERS: PCP Family Medicine; Referring Provider Urology; Visit Provider Urology
DX: C61 Malignant neoplasm of prostate (principal); M48.56XA Collapsed vertebra, not elsewhere classified, lumbar region, initial encounter for fracture; R16.1 Splenomegaly, not elsewhere classified; I86.8 Varicose veins of other specified sites; N62 Hypertrophy of breast; K57.90 Diverticulosis of intestine, part unspecified, without perforation or abscess without bleeding
CPT/HCPCS: 71250; 74176

== ENCOUNTER → 2023-02-24 08:27 | Outpatient (CLI) | payer MEDICARE, OTHER, SELFPAY ==
[2020-11-17 12:28] VITALS: BMI 27.9
--- NOTE | 2023-02-24 | DI.US.S_ITS ---
PROCEDURE: US ABDOMEN COMPLETE INDICATIONS: GERD TECHNIQUE: Real-time scanning was performed of the abdominal and retroperitoneal organs, with image documentation. COMPARISON: None. FINDINGS: Overall, study limited secondary to surgical scars and overlying bowel gas Liver: Liver is normal in size and homogeneous in echotexture. Main portal vein is normal in size measuring 1.0 cm in diameter. Hepatopetal flow. Gallbladder: Status post cholecystectomy Biliary ducts: Biliary ducts are not well visualized. Intrahepatic biliary ducts are within normal limits. Pancreas: Pancreas not well visualized secondary to bowel gas. Spleen: Splenomegaly measuring 16.7 cm in maximum dimension. A prominent, patent splenic vein is visualized measuring up to 2.7 cm in diameter. Kidneys: Kidneys are normal in size and echotexture. Right kidney measures 10.2 cm long; left kidney measures 10.6 cm long. No hydronephrosis or nephrolithiasis. No solid masses. Aorta: Visualized aorta is normal in caliber at less than 3 cm. Iliacs: Proximal common iliac arteries are normal in caliber at less than 2.5 cm. IVC: IVC not well visualized secondary to bowel gas. Miscellaneous: No free abdominal fluid. IMPRESSION: Limited evaluation of the abdomen secondary to overlying surgical scars as well as moderate bowel gas. No acute abnormality seen. Splenomegaly with prominent splenic vein measuring up to 2.7 cm in diameter. Splenic vein appears patent. Status post cholecystectomy. Dictated by: Kunal Moreno M.D. on 02/24/2023 at 10:24 Approved by: Kunal Moreno M.D. on 02/24/2023 at 10:36
== END ==
PROVIDERS: PCP Family Medicine; Referring Provider Internal Medicine Gastroenterology; Visit Provider Internal Medicine Gastroenterology
DX: B18.2 Chronic viral hepatitis C (principal); K21.00 Gastro-esophageal reflux disease with esophagitis, without bleeding; K74.60 Unspecified cirrhosis of liver; C22.0 Liver cell carcinoma; D47.Z1 Post-transplant lymphoproliferative disorder (PTLD); R13.10 Dysphagia, unspecified; R16.1 Splenomegaly, not elsewhere classified; Z13.810 Encounter for screening for upper gastrointestinal disorder; Z94.4 Liver transplant status; Z86.010 Personal history of colon polyps; Z90.49 Acquired absence of other specified parts of digestive tract
CPT/HCPCS: 76700

== ENCOUNTER → 2024-08-24 13:26 | Outpatient (CLI) | payer MEDICARE, OTHER, SELFPAY ==
[2020-11-17 12:28] VITALS: BMI 27.9
--- NOTE | 2024-08-24 13:29 | DI.CT.S_ITS ---
PROCEDURE: CT HEAD/BRAIN WO CON INDICATIONS: headaches TECHNIQUE: Noncontrast 4.5 mm thick angled axial sections acquired from the foramen magnum to the vertex, with coronal and sagittal reformats. For radiation dose reduction, the following was used: automated exposure control, adjustment of mA and/or kV according to patient size. COMPARISON: [facility], CT, CT HEAD/BRAIN WO CON, 10/10/2020, 11:53. FINDINGS: Image quality: Diagnostic. CSF spaces: Basal cisterns are patent. No extra-axial fluid collections. The ventricles are symmetric in size and shape. Brain: No intracranial bleeds or mass effect. There is cerebral volume loss, with resultant ventricular and sulcal prominence. There are periventricular and deep white matter chronic small vessel ischemic changes. There is intracranial internal carotid artery atherosclerosis. Skull and face: Calvarium and visualized facial bones appear intact, without suspicious lesions. Lens replacements. Sinuses: Visualized sinuses and mastoids are clear. IMPRESSION: Age-appropriate global volume loss and chronic microvascular ischemic changes. No acute intracranial pathology. Dictated by: José Manuel Anderson M.D. on 08/24/2024 at 15:00 Approved by: José Manuel Anderson M.D. on 08/24/2024 at 15:01
== END ==
LOC: CT 13:28
PROVIDERS: PCP Family Medicine; Referring Provider Family Medicine; Visit Provider Family Medicine
DX: R51.9 Headache, unspecified (principal)
CPT/HCPCS: 70450